=== PATIENT | male | born 1980 | race Caucasian/White ===

== ENCOUNTER 2017-03-26 06:15 | Day surgery (SDC) | payer OTHER ==
[2017-03-26 07:09] VITALS: BMI 39.1
[2017-03-26] MEDS ORDERED: SODIUM CHLORIDE 1,000 ML IV STA (07:25)
--- NOTE | 2017-03-26 08:12 | PDOC ---
*Physical Exam - Vital Signs Last Vital Signs Temp Pulse Resp BP Pulse Ox 99.0 F 105 H 14 154/102 97 03/26/17 06:39 03/26/17 06:39 03/26/17 06:39 03/26/17 06:39 03/26/17 06:39 Heart Score/ECG Review #1 ECG reviewed & interpreted by me at: 07:45 General ECG Interpretation: Sinus Rhythm, Normal Rate (91), Normal Intervals ( qtc 425), No acute ischemic changes ED Treatment Course - LABORATORY CBC & Chemistry Diagram: 03/26/17 07:56 03/26/17 07:56 Medical Decision Making - Medical Decision Making 03/26/17 08:10 Patient seen and evaluated with the nurse practitioner. I agree with the overall evaluation, assessment, and management with the following summary of visit: 36-year-old male for OR today with Dr. Ferrer. Accepted for admission. *DC/Admit/Observation/Transfer Diagnosis at time of Disposition: Obesity Qualifiers: Obesity type: unspecified obesity type Obesity classification: adult class 2 ( BMI 35 - 39.9) Serious obesity comorbidity presence: unspecified whether serious comorbidity present Body mass index: unspecified BMI Qualified Code(s): E66.9 - Obesity, unspecified - Discharge Dispostion Admit: Yes - Referrals Referrals: Angela Perdue MD [Primary Care Provider] - - Patient Instructions - Post Discharge Activity
[2017-03-26 08:15] LABS: BASOPHIL 0.3 % (0-2.0); MCH 34.3 pg (25.7-33.7); MCHC 34.3 g/dl (32.0-35.9); MEAN CELL VOLUME 99.8 fl (80-96); MEAN PLT VOLUME 8.2 fl (7.5-11.1); NEUTROPHILS 72.8 % (42.8-82.8); PLATELET COUNT 259 K/MM3 (134-434); RDW 12.8 % (11.9-15.9); WHITE BLOOD COUNT 6.9 K/mm3 (4.0-10.0)
[2017-03-26 08:37] LABS: ALBUMIN 4.4 g/dl (3.4-5.0); ANION GAP 8 (8-16); CALCIUM 8.8 mg/dL (8.5-10.1); CO2 28 mmol/L (21-32); CREATININE 1.6 mg/dL (0.7-1.3); GLUCOSE,RANDOM 104 mg/dL (74-106); SGOT/AST 91 U/L (15-37); SGPT/ALT 115 U/L (12-78)
[2017-03-26 08:39] LABS: ALK PHOS 87 U/L (45-117); BILIRUBIN,TOTAL 0.2 mg/dL (0.2-1.0); TOT PROT 8.3 g/dl (6.4-8.2)
--- NOTE | 2017-03-26 08:43 | PDOC ---
History of Present Illness - General Chief Complaint: Revisit, Lab Variance Stated Complaint: ABD PAIN/SENT BY Time Seen by Provider: 03/26/17 07:19 History Source: Patient Exam Limitations: No Limitations - History of Present Illness Initial Comments: 03/26/17 07:37 36-year-old male presents to the ED for pending gastric sleeve today to be performed by Dr. Pedroza. Patient states had the gastric lap band performed at 2013 but states has been having difficulty with tolerating solids causing him to have nausea, intermittent diarrhea and dysphagia. Patient denies abdominal distention, decreased flatulence, severe abdominal pain, fever or chills. Patient states had the balloon deflated earlier this week by Dr. pedroza. Patient states history of hypertension and took his medication this morning and had his last meal yesterday at 1 PM. Timing/Duration: intermittent Severity: mild Associated Symptoms: reports: nausea/vomiting Past History - Travel Traveled outside of the country in the last 30 days: Yes - Past Medical History Allergies/Adverse Reactions: Allergies Allergy/AdvReac Type Severity Reaction Status Date / Time No Known Allergies Allergy Verified 03/26/17 06:38 Home Medications: Ambulatory Orders Lisinopril [Prinivil -] 40 mg PO DAILY 03/26/15 Metoprolol Tartrate 25 mg PO DAILY 03/26/15 COPD: No HTN: Yes - Surgical History Abdominal Surgery: Yes (lap band) - Suicide/Smoking/Psychosocial Hx Smoking History: Never smoked Have you smoked in the past 12 months: No Information on smoking cessation initiated: No Hx Alcohol Use: No Drug/Substance Use Hx: No Substance Use Type: None Patient Lives Alone: No Review of Systems - Review of Systems Able to Perform ROS?: Yes Constitutional: No: Symptoms Reported HEENTM: Yes: Difficulty Swallowing Respiratory: No: Symptoms reported ABD/GI: Yes: Diarrhea, Nausea, Vomiting, Abdominal cramping : No: Symptoms Reported Integumentary: No: Symptoms Reported Neurological: No: Symptoms reported Endocrine: No: Symptoms Reported Hematologic/Lymphatic: No: Symptoms Reported *Physical Exam - Vital Signs Last Vital Signs Temp Pulse Resp BP Pulse Ox 99.0 F 105 H 14 154/102 97 03/26/17 06:39 03/26/17 06:39 03/26/17 06:39 03/26/17 06:39 03/26/17 06:39 - Physical Exam General Appearance: Yes: Nourished, Appropriately Dressed. No: Apparent Distress HEENT: negative: Pale Conjunctivae Neck: positive: Normal Thyroid, Supple Respiratory/Chest: positive: Lungs Clear, Normal Breath Sounds. negative: Respiratory Distress, Accessory Muscle Use Cardiovascular: positive: Regular Rhythm, Regular Rate (rate 85 on monitor). negative: Murmur Gastrointestinal/Abdominal: positive: Soft, Tenderness (mild around rt periumblical lap band incision). negative: Distended, Guarding, Rebound Integumentary: positive: Normal Color, Warm, Moist Neurologic: positive: Normal Mood/Affect, Motor Strength 5/5 (ambulatory) Heart Score/ECG Review - ECG Intrepretation Rhythm: Regular Rhythm (rate 91. Normal sinus rhythm. Intervals are regular.) ED Treatment Course - LABORATORY CBC & Chemistry Diagram: 03/26/17 07:56 03/26/17 07:56 - RADIOLOGY Radiology Studies Ordered: Category Date Time Status CHEST X-RAY PORTABLE* [RAD] Stat Radiology 03/26/17 07:24 Ordered Medical Decision Making - Medical Decision Making 03/26/17 07:43 Patient sent in by Dr. Pedroza for gastric sleeve procedure. Patient states has been having nausea and vomiting intermittent diarrhea and dysphagia since having the gastric lap band done in 2013. Patient upon arrival with normal vital signs. Mild tenderness surrounding the LAP-BAND. No distention. Preop labs placed. Maintenance IV fluids initiated. Awaiting Dr. Pedroza for callback. 03/26/17 08:45 Laboratory Tests 03/26/17 07:56 Sodium 136 Potassium 4.1 Chloride 100 Carbon Dioxide 28 Anion Gap 8 BUN 22 H D Creatinine 1.6 H D Random Glucose 104 Total Bilirubin 0.2 D AST 91 H D ALT [address] Pedroza here for consultation. He states will remove a gastric lap band today and likely will reschedule the gastric sleeve. admitted under him *DC/Admit/Observation/Transfer Diagnosis at time of Disposition: Obesity Qualifiers: Obesity type: unspecified obesity type Obesity classification: adult class 2 ( BMI 35 - 39.9) Serious obesity comorbidity presence: unspecified whether serious comorbidity present Body mass index: unspecified BMI Qualified Code(s): E66.9 - Obesity, unspecified - Discharge Dispostion Admit: Yes - Referrals Referrals: Angela Perdue MD [Primary Care Provider] - - Patient Instructions - Post Discharge Activity
[2017-03-26 08:55] LABS: INR 1.06 (0.82-1.09)
--- NOTE | 2017-03-26 10:24 | EKG ---
Test Reason : Blood Pressure : / mmHG Vent. Rate : 091 BPM Atrial Rate : 091 BPM P-R Int : 146 ms QRS Dur : 104 ms QT Int : 346 ms P-R-T Axes : 050 005 032 degrees QTc Int : 425 ms NORMAL SINUS RHYTHM NORMAL ECG WHEN COMPARED WITH ECG OF 26-MAR-2015 08:51, NO SIGNIFICANT CHANGE WAS FOUND Confirmed by ISAAK WILKINSON MD ([id number]) on 03/26/2017 10:23:54 AM Referred By: Confirmed By:ISAAK WILKINSON MD
[2017-03-26] MEDS ORDERED: BUPIVACAINE HCL/PF 0.5% (5MG/ML) 10 ML VIAL ONE (10:45)
--- NOTE | 2017-03-26 10:55 | HP ---
Satellite [facility] - Chief Complaint Chief Complaint: Dysphagia, abdominal pain, reflux/GERD History Source: Patient Limitations to Obtaining History: No Limitations - Past Medical History Allergies/Adverse Reactions: Allergies Allergy/AdvReac Type Severity Reaction Status Date / Time No Known Allergies Allergy Verified 03/26/17 06:38 - Current Medications Current Medications: Home Medications Medication Instructions Recorded Lisinopril [Prinivil -] 40 mg PO DAILY 03/26/15 Metoprolol Tartrate 25 mg PO DAILY 03/26/15 Satellite Physical Exam - Physical Examination Vital Signs: Vital Signs Period Temp Pulse Resp BP Sys/Candelario Pulse Ox Last 24 Hr 98.6 F-99.0 F 78-105 14-16 135-154/85-102 97-99 General Appearance: Calm, Mild Distress Lung: Clear to auscultation Heart: Regular rate & rhythm Abdomen: Soft Neurological: Alert, Oriented Satellite Impression/Plan - Impression/Plan Impression: Dysphagia, reflux and pain from gastric band Operative Procedure: Laparoscopic removal of gastric band, port and components Date to be Performed: 03/26/17
[2017-03-26] MEDS ORDERED: PROPOFOL 20 ML ONE (11:02)
[2017-03-26] MEDS ORDERED: fentaNYL CITRATE 250 MCG/5 ML VIAL ONE (11:02)
[2017-03-26] MEDS ORDERED: ROCURONIUM BROMIDE 50 MG/5 ML VIAL ONE (11:03)
[2017-03-26] MEDS ORDERED: MIDAZOLAM HCL 2 MG/2 ML SINGLE DOSE VIAL ONE (11:03)
[2017-03-26] MEDS ORDERED: KETOROLAC TROMETHAMINE 30 MG/1 ML VIAL ONE (11:05)
[2017-03-26] MEDS ORDERED: LIDOCAINE HCL/PF 2% SDV 5ML VIAL ONE ×2 (11:05→11:07)
[2017-03-26] MEDS ORDERED: LIDOCAINE HCL 2% JELLY (5 ML/TUBE) ONE (11:05)
[2017-03-26] MEDS ORDERED: ONDANSETRON 4 MG/2 ML VIAL ONE (11:05)
[2017-03-26] MEDS ORDERED: SODIUM CHLORIDE 0.9% P/F 10 ML VIAL IJ ONE (11:05)
[2017-03-26] MEDS ORDERED: ceFAZolin SODIUM 1 GM VIAL ONE (11:05)
[2017-03-26] MEDS ORDERED: ceFAZolin SODIUM 1 GM VIAL IVPB ONE ×2 (11:42→11:55)
[2017-03-26] MEDS ORDERED: BUPIVACAINE HCL/PF 0.5% (5MG/ML) 10 ML VIAL IJ ONE ×2 (11:42→12:03)
[2017-03-26] MEDS ORDERED: ePHEDrine SULFATE 50 MG/1 ML AMPULE ONE (11:55)
[2017-03-26] MEDS ORDERED: SUCCINYLCHOLINE CHLORIDE 200 MG/10 ML VIAL ONE (11:56)
[2017-03-26] MEDS ORDERED: GLYCOPYRROLATE 0.2 MG/1 ML VIAL ONE ×2 (12:18→12:19)
[2017-03-26] MEDS ORDERED: NEOSTIGMINE METHYLSULFATE 0.5 MG/ML - 10 ML MDV ONE (12:18)
[2017-03-26] MEDS ORDERED: ONDANSETRON 4 MG/2 ML VIAL IVPUSH PRN ×2 (13:51→16:17)
[2017-03-26] MEDS ORDERED: ENOXAPARIN NA (PORCINE) 40 MG/0.4 ML DISP.SYRIN SQ ONE (13:51)
[2017-03-26] MEDS ORDERED: HYDROmorphone HCL CARPU-JECT 1 MG/1 ML DISP.SYRIN IVPB PRN (13:51)
--- NOTE | 2017-03-26 14:19 | OP ---
Operative Note - Note: Operative Date: 03/26/17 Pre-Operative Diagnosis: Dysphagia, reflux, epigastric pain due to gastric band Operation: Laparoscopic removal of gastric band, port and components, lysis of adhesions, capsulotomy, wedge liver biopsy, EGD Findings: Hepatomegaly No leak/obstruction Post-Operative Diagnosis: Same as Pre-op Surgeon: Ace Ferrer Employee Relation Manager: Luna Nunez Anesthesia: General Specimens Removed: Gastric band, port and components, liver biopsy Estimated Blood Loss (mls): 30 Operative Report Dictated: Yes
--- NOTE | 2017-03-26 14:41 | SURG ---
Surgery Taper [employer]ed Circuit Layout Note Taper [employer]ed [employer] Layout: Nely Patton PA-C Date of Service: 03/26/17 Diagnosis: Abdomina; Procedure: Laprascopic removal of gastric band, Liver biopsy I was present for the entirety of the operative procedure. For further detail, please refer to operative report.
[2017-03-26] MEDS ORDERED: oxyCODONE HCL 5 MG TABLET PO PRN ×4 (16:19→21:16)
[2017-03-26] MEDS ORDERED: TAMSULOSIN HCL 0.4 MG CAP.ER.24H (FP) PO ONE (17:17)
--- NOTE | 2017-03-26 18:26 | OP ---
DATE OF OPERATION: 03/26/2017 SURGEON: Ace Ferrer M.D. BOOTH CLEANER: Omer Dos Santos Amber PREOPERATIVE DIAGNOSIS: Dysphagia, epigastric pain, and gastroesophageal reflux disease/reflux. POSTOPERATIVE DIAGNOSIS: Dysphagia, epigastric pain, and gastroesophageal reflux disease/reflux due to gastric band. PROCEDURE: Laparoscopic removal of gastric band port and components, laparoscopic capsulotomy, laparoscopic lysis of adhesions, laparoscopic wedge liver biopsy, and an upper endoscopy/EGD. SPECIMENS: Wedge liver biopsy. ESTIMATED BLOOD LOSS: 30 mL. DRAINS: None. ANESTHESIA: GT. REASON FOR THE PROCEDURE: This is a 36-year-old gentleman who presents to the ER for dysphagia, epigastric pain, and GERD/reflux from his band. He stated it has been going on for some time. He also wanted the band removed because of this constant source of dysphagia, pain, and reflux. Because of this, he was consented for a laparoscopic removal of gastric band, port and components, possible open, possible liver biopsy, possible endoscopy. Risks and benefits of the procedure were explained. This included bleeding, infection, hernia, MO, DVT, PE, injury to surrounding structures including esophageal injuries, stomach injury, liver injury, splenic injury, duodenal injury, intestinal injury, vessel injury, nerve injury, stricture formation, obstruction, gastric leak, esophageal leak, persistent dysphagia, epigastric pain, and reflux, seroma, hematoma as some of the complications. He understood and signed for consent. DESCRIPTION OF PROCEDURE: Patient was placed supine on operating room table. He underwent general endotracheal intubation by anesthesia. A footboard was placed , and the arms were elevated to 90 degrees and secured with Kerlix dressing. The legs were secured with tape. The abdomen was prepped and draped in the usual sterile fashion and timeout was performed. An NG tube was placed by anesthesia. An incision was made superior to the left of the umbilicus. A Veress needle was inserted, and pneumoperitoneum was established. Subsequently the Veress needle was removed, and a 5-mm Optiview trocar was removed under direct visualization with laparoscope. A 15-mm trocar was placed at the level of the previous port, just above the level of the previous port. A 5-mm trocar was placed in the right subcostal region, a 5- mm trocar placed in the left subcostal region, and a 5-mm trocar that was initially placed was replaced with a 12-mm trocar. Stab wound was made in subxiphoid area , and a Vicky clamp was used to dilate the tract, liver retractor was inserted, and attached to the post which was attached to the bedside. The patient was placed in steep reverse Trendelenburg position. The liver was retracted with a Tanvir liver retractor to the anterior abdominal wall. Dissection was performed following the tubing to the level of the band. This was done carefully staying along the aspect of the tubing and band itself. The band was dissected to the right laterally beyond the point of the band buckle, and freed further so that the band could be slightly mobilized. The band was then dissected laterally towards the level of the prior wrap. Once the band was freed enough to be further mobilized, the tubing was followed to the level of the connection to the port. At this level, the tubing was transected using an Endoshear. The band was then opened and the tubing reduced. The band was cut with an Endoshear so that it could be mobilized from around the stomach. The two portions of the band were removed from the abdominal cavity and the two parts matched. The capsule was then inspected, and the capsulotomy performed from the inferior aspect of the capsule to the superior aspect, the capsule was carefully dissected and opened with Endoshear. At the end of the capsulotomy, the stomach was noted to be with much less restriction. Hemostasis was noted. Endoscopy was then performed in order to further evaluate the entirety of the esophagus, GE junction, stomach was inspected, no leaks were identified, no level of obstruction or stricture was identified, and the stomach was noted to distend at the level of the prior capsule and beyond, noting no evidence of further obstruction. The endoscope was then used to suction the stomach and removed from the patient fully intact. Of note, in order to free the band initially, extensive lysis of adhesions needed to be performed, freeing adhesions toward the liver in the anterior abdominal wall. The liver was noted to be boggy and heavy and enlarged and therefore wedge liver biopsy of the left lobe of the liver was performed. A portion was grasped with [place] and a wedge liver biopsy was taken with hook electrocautery; this was sent off the field. Hemostasis was achieved using hook electrocautery. Again hemostasis was noted. The trocars were removed, and hemostasis again noted. The liver retractor was removed from the field, and all trocars removed after pneumoperitoneum was desufflated. The incision in the port was then extended, and the port dissected until completely dissected and removed from the abdominal wall. The tubing from the port as well as the tubing from the prior removed band was noted to match. Hemostasis was noted at all incisions, and the fascia at this region was closed using 0 Vicryl suture. Marcaine was injected in all incision sites. 3-0 Vicryl was used to approximate the deep subcutaneous layers at the 15mm trocar site. 4-0 Biosyn was used to close all skin incisions. Sterile dressings were applied. The patient tolerated the procedure well, was transferred to recovery room in stable condition. Donovan SAHU/[id number] MTDD
[2017-03-26] MEDS: TAMSULOSIN HCL 0.4 MG CAP.ER.24H (FP) PO SCH (18:58)
[2017-03-26] MEDS: SODIUM CHLORIDE 1,000 ML IV SCH ×2 (18:59→21:51)
[2017-03-26] MEDS ORDERED: ACETAMINOPHEN 1000 MG/100 ML VIAL (NON FORMULARY) IVPB PRN (21:46)
[2017-03-26] MEDS: FAMOTIDINE 20 MG/50 ML IVPB 20 MG/50 ML MG IVPB SCH (21:48)
[2017-03-26] MEDS ORDERED: FAMOTIDINE 20 MG/50 ML IVPB 20 MG/50 ML MG IVPB SCH (22:00)
[2017-03-26 23:48] LABS: EOSINOPHIL 0.1 % (0-4.5); MCHC 33.8 g/dl (32.0-35.9); MEAN CELL VOLUME 100.7 fl (80-96); MEAN PLT VOLUME 8.4 fl (7.5-11.1); NEUTROPHILS 88.8 % (42.8-82.8); PLATELET COUNT 232 K/MM3 (134-434); RDW 13.3 % (11.9-15.9); WHITE BLOOD COUNT 11.2 K/mm3 (4.0-10.0)
[2017-03-27 00:12] LABS: ANION GAP 10 (8-16); CALCIUM 8.5 mg/dL (8.5-10.1); CO2 29 mmol/L (21-32); CREATININE 1.6 mg/dL (0.7-1.3); GLUCOSE,RANDOM 111 mg/dL (74-106)
[2017-03-27] MEDS ORDERED: HYDROmorphone HCL CARPU-JECT 2 MG/1 ML DISP.SYRIN IVPB PRN (03:25)
--- NOTE | 2017-03-27 07:23 | SURG ---
Surgery Surgical Asst Note Surgical Asst: Luna Nunez PA-C Date of Service: 03/26/17 Diagnosis: Dysphagia, reflux, epigastric pain due to gastric band Procedure: Laparoscopic removal of gastric band, port and components, lysis of adhesions, capsulotomy, wedge liver biopsy, EGD F I was present for the entirety of the operative procedure. For further detail, please refer to operative report. Visit type - Case Type Case Type: ED Admission - Emergency Emergency Visit: Yes Care time: The patient presented to the Emergency Department on the above date and was hospitalized for further evaluation of their emergent condition. - New patient This patient is new to me today: Yes Date on this admission: 03/26/17
[2017-03-27 08:51] LABS: ANION GAP 5 (8-16); CALCIUM 7.9 mg/dL (8.5-10.1); CO2 30 mmol/L (21-32); CREATININE 1.3 mg/dL (0.7-1.3); GLUCOSE,RANDOM 102 mg/dL (74-106)
--- NOTE | 2017-03-27 09:38 | PN ---
Progress Note (short form) - Note Progress Note: POD#1 The patient complains of sore throat and some painful swallowing. No nausea or emesis, tolerating clears. Having diarhhea x1, he took a stool softner prior to surgery. Vital Signs Period Temp Pulse Resp BP Sys/Candelario Pulse Ox Last 24 Hr 98.0 F-102.2 F 10-126 10-19 100-3118/46-86 90-99 GEN: appears cmfortable ABD: slight distended, inc tenderness. Inc c/d/i with dermabond. LE: no calf tenderness or swelling noted b/l. CBC, BMP 03/26/ 23:25 03/27/ 07:30 A/P: s/p lap gastric band removal Continue clears Ordered home meds, except for HCTZ his BUN/Cret were elevated. Awaiting renal consult, labs improved today. Awaiting pulmonary consult, saturation 90-94 % overnight with improved with supplemental oxygen. To check sat again this am. D/w epi Chowob to chair and ambulate.
[2017-03-27] MEDS ORDERED: LISINOPRIL 20 MG TABLET (FP) PO SCH (10:00)
[2017-03-27] MEDS ORDERED: VENLAFAXINE HCL 75 MG E.R. CAPSULES (FP) PO SCH (10:00)
[2017-03-27] MEDS ORDERED: METOPROLOL TARTRATE 25 MG TABLET (FP) PO SCH (10:00)
[2017-03-27] MEDS ORDERED: ALPRAZolam 0.25 MG TABLET PO PRN (10:06)
[2017-03-27] MEDS ORDERED: ACETAMINOPHEN 325 MG TABLET (FP) PO PRN (10:08)
[2017-03-27] MEDS: TAMSULOSIN HCL 0.4 MG CAP.ER.24H (FP) PO SCH (10:12)
[2017-03-27] MEDS: FAMOTIDINE 20 MG/50 ML IVPB 20 MG/50 ML MG IVPB SCH (10:12)
[2017-03-27] MEDS ORDERED: OXcarbazepine 150 MG TABLET (UD) PO SCH (10:15)
[2017-03-27 11:00] VITALS: BP 161/78; PULSE 113; TEMP 100.5
== END 2017-03-27 12:44 | disposition home or self-care (01) ==
LOC: JER 06:15 → JASUSAT 08:12 → JER 10:20 → J6S 17:55 → JASUSAT 03-27 12:44
PROVIDERS: ATTEND Surgery
PROC: 0WP Anatomical Regions, General, Removal (ICD-10-PCS; principal; 2017-03-26 11:00)
PROC: 0DJ08ZZ Inspection of Upper Intestinal Tract, Via Natural or Artificial Opening Endoscopic (ICD-10-PCS; 2017-03-26 11:00)
DX: K95.09 Other complications of gastric band procedure (principal); K21.9 Gastro-esophageal reflux disease without esophagitis; R13.19 Other dysphagia; R10.13 Epigastric pain; R16.0 Hepatomegaly, not elsewhere classified; I10 Essential (primary) hypertension; E66.01 Morbid (severe) obesity due to excess calories
CPT/HCPCS: 36415; 71010-TC; 74241-TC; 80048; 80053; 85025; 85610; 86850; 86900; 86901; 88300-TC; 88307-TC; 88313-TC; 93005; 93010; 94010; 94760; 99284-25

== ENCOUNTER 2017-05-16 13:36 | Inpatient (IN) | payer OTHER ==
[2017-05-15 15:10] VITALS: BMI 39.1
[~2017-05-16 13:36] MED LIST: BUPIVACAINE HCL/PF 0.5% (5MG/ML) 10 ML VIAL IJ ONE
[2017-05-16] MEDS ORDERED: MIDAZOLAM HCL 2 MG/2 ML SINGLE DOSE VIAL ONE (16:45)
--- NOTE | 2017-05-16 16:45 | HP ---
History & Physical Update - History History: No Change - Physical Physical: No Change - Assessment Assessment: No Change - Plan Plan: No Change (Laparoscopic possible open vertical sleeve gastrectomy, possible wedge liver biopsy, EGD)
[2017-05-16] MEDS ORDERED: LIDOCAINE HCL/PF 2% SDV 5ML VIAL ONE (16:53)
[2017-05-16] MEDS ORDERED: DEXAMETHASONE SOD PHOSPHATE 4 MG/1 ML VIAL ONE ×2 (16:53→18:06)
[2017-05-16] MEDS ORDERED: fentaNYL CITRATE 250 MCG/5 ML VIAL ONE (16:54)
[2017-05-16] MEDS ORDERED: PROPOFOL 20 ML ONE ×2 (16:55→16:56)
[2017-05-16] MEDS ORDERED: ROCURONIUM BROMIDE 50 MG/5 ML VIAL ONE ×2 (16:56)
[2017-05-16] MEDS ORDERED: ceFAZolin SODIUM 1 GM VIAL ONE (17:03)
[2017-05-16] MEDS ORDERED: ESMOLOL HCL 100,000 MCG/10 ML VIAL ONE (17:05)
[2017-05-16] MEDS ORDERED: ceFAZolin SODIUM 1 GM VIAL IVPB ONE (17:05)
[2017-05-16] MEDS ORDERED: NEOSTIGMINE METHYLSULFATE 0.5 MG/ML - 10 ML MDV ONE (18:06)
[2017-05-16] MEDS ORDERED: GLYCOPYRROLATE 0.2 MG/1 ML VIAL ONE (18:11)
[2017-05-16] MEDS ORDERED: BUPIVACAINE HCL/PF 0.5% (5MG/ML) 10 ML VIAL IJ ONE (18:30)
[2017-05-16] MEDS ORDERED: METOCLOPRAMIDE HCL INJECTION 10 MG/2 ML VIAL ONE (18:52)
[2017-05-16] MEDS ORDERED: HYDROmorphone HCL CARPU-JECT 2 MG/1 ML DISP.SYRIN ONE ×2 (18:52→19:09)
[2017-05-16] MEDS ORDERED: ONDANSETRON 4 MG/2 ML VIAL ONE (18:52)
[2017-05-16] MEDS: HYDROmorphone HCL CARPU-JECT 1 MG/1 ML DISP.SYRIN IVPUSH PRN ×4 (18:53→19:30)
[2017-05-16] MEDS ORDERED: ACETAMINOPHEN INJECTION 100 ML IVPB ONE (18:53)
--- NOTE | 2017-05-16 18:57 | OP ---
Operative Note - Note: Operative Date: 05/16/17 Pre-Operative Diagnosis: Morbid obesity Operation: Laparoscopic vertical gastric sleeve. Liver biopsy Post-Operative Diagnosis: Other Surgeon: Ace Ferrer Warehouse Associate: Filiberto Tierney Anesthesiologist/PRODUCTION TROUBLESHOOTER: Pranav Briseno Anesthesia: General Specimens Removed: Greater curvatire of stomach and liver biopsy Estimated Blood Loss (mls): 40 Operative Report Dictated: Yes
--- NOTE | 2017-05-16 18:58 | SURG ---
Surgery Police Aide Note Police Aide: Filiberto Tierney PA-C Date of Service: 05/16/17 Diagnosis: Morbid obesity Procedure: Laparoscopic vertical sleeve gastrectomy, liver biopsy I was present for the entirety of the operative procedure. For further detail, please refer to operative report. Visit type - Case Type Case Type: Scheduled Admission - New patient This patient is new to me today: Yes Date on this admission: 05/16/17
[2017-05-16] MEDS ORDERED: SODIUM CHLORIDE 1,000 ML IV SCH (19:00)
[2017-05-16] MEDS: METOCLOPRAMIDE HCL INJECTION 10 MG/2 ML VIAL IVPUSH SCH (19:00)
[2017-05-16] MEDS: ACETAMINOPHEN 1000 MG/100 ML VIAL (NON FORMULARY) IVPB SCH (19:10)
[2017-05-16] MEDS: ONDANSETRON 4 MG/2 ML VIAL IVPUSH SCH (19:20)
[2017-05-16 19:49] LABS: HEMOGLOBIN 13.6 GM/dL (11.7-16.9); MCH 33.2 pg (25.7-33.7); MCHC 33.2 g/dl (32.0-35.9); MEAN CELL VOLUME 99.8 fl (80-96); MEAN PLT VOLUME 9.6 fl (7.5-11.1); PLATELET COUNT 268 K/MM3 (134-434); RBC 4.11 M/mm3 (4.00-5.60); RDW 14.8 % (11.9-15.9); WHITE BLOOD COUNT 10.7 K/mm3 (4.0-10.0)
[2017-05-16 20:23] LABS: ANION GAP 9 (8-16); BILIRUBIN,TOTAL 0.6 mg/dL (0.2-1.0); BLOOD UREA NITROGEN 29 mg/dL (7-18); CALCIUM 8.9 mg/dL (8.5-10.1); CHLORIDE 98 mmol/L (98-107); CO2 28 mmol/L (21-32); CREATININE 1.8 mg/dL (0.7-1.3); GLUCOSE,RANDOM 121 mg/dL (74-106); POTASSIUM 4.1 mmol/L (3.5-5.1); SGOT/AST 56 U/L (15-37); SGPT/ALT 82 U/L (12-78); SODIUM 135 mmol/L (136-145); TOT PROT 7.5 g/dl (6.4-8.2)
[2017-05-16 20:24] LABS: ALK PHOS 82 U/L (45-117)
[2017-05-16] MEDS: ENOXAPARIN NA (PORCINE) 40 MG/0.4 ML DISP.SYRIN SQ SCH (21:58)
[2017-05-16] MEDS: FAMOTIDINE 20 MG/50 ML IVPB 20 MG/50 ML MG IVPB SCH (21:58)
[2017-05-16] MEDS: HYDROmorphone HCL CARPU-JECT 1 MG/1 ML DISP.SYRIN IVPB PRN (22:36)
[2017-05-17] MEDS: ONDANSETRON 4 MG/2 ML VIAL IVPUSH SCH ×7 (00:21→22:58)
[2017-05-17] MEDS: ALPRAZolam 2 MG TABLET PO SCH ×2 (00:21→22:58)
[2017-05-17] MEDS: NIFEdipine E.R. 30 MG TABLET (FP) PO SCH ×3 (00:21→22:58)
[2017-05-17] MEDS: METOCLOPRAMIDE HCL INJECTION 10 MG/2 ML VIAL IVPUSH SCH ×2 (01:57→06:50)
[2017-05-17] MEDS: ACETAMINOPHEN 1000 MG/100 ML VIAL (NON FORMULARY) IVPB SCH ×3 (01:57→14:43)
[2017-05-17] MEDS: HYDROmorphone HCL CARPU-JECT 1 MG/1 ML DISP.SYRIN IVPB PRN ×2 (03:00→19:43)
[2017-05-17 07:31] LABS: HEMATOCRIT 39.8 % (35.4-49); HEMOGLOBIN 13.1 GM/dL (11.7-16.9); MCH 33.1 pg (25.7-33.7); MEAN CELL VOLUME 100.4 fl (80-96); MEAN PLT VOLUME 9.1 fl (7.5-11.1); PLATELET COUNT 261 K/MM3 (134-434); RBC 3.96 M/mm3 (4.00-5.60); RDW 14.9 % (11.9-15.9); WHITE BLOOD COUNT 12.2 K/mm3 (4.0-10.0)
--- NOTE | 2017-05-17 07:35 | SPEC ---
DATE OF OPERATION: 05/16/2017 SURGEON: Ace Ferrer MD MANAGER LICENSING: ADDIE Victor PREOPERATIVE DIAGNOSIS: Morbid obesity, BMI of 39.1. POSTOPERATIVE DIAGNOSIS: Morbid obesity, BMI of 39.1, and hepatomegaly. PROCEDURE: Laparoscopic vertical sleeve gastrectomy, laparoscopic wedge liver biopsy, diagnostic laparoscopy, and esophagogastroduodenoscopy. SPECIMEN: Greater curvature of the stomach and left lobe wedge liver biopsy. ESTIMATED BLOOD LOSS: 30 mL. DRAINS: None. ANESTHESIA: GET. BOUGIE: A 35-Salvadorean. REASON FOR PROCEDURE: This is a 37-year-old gentleman who presented to the office for weight loss options. After describing the different options, he decided to proceed with a laparoscopic vertical sleeve gastrectomy, possible open, possible liver biopsy and an upper endoscopy. RISKS AND BENEFITS: After describing the different options for weight loss management, the patient decided to proceed with a laparoscopic, possible open vertical sleeve gastrectomy. The patient was seen by the respective subspecialties and cleared for surgery. The risks and benefits of the procedure were explained. These included bleeding, infection, hernia, MT, DVT, PE, injury to surrounding structures including the liver, colon, bowel, spleen, esophagus, vessel injury, nerve injury, weight regain, gastric leak, staple line leak, sleeve leak, obstruction, vitamin deficiency, hair loss and as some of the possible complications. The patient understood and signed informed consent. DESCRIPTION OF PROCEDURE: The patient was placed supine on the operating room table. The patient underwent general endotracheal intubation. A Johns catheter was inserted. The arms were brought out at 90 degrees and secured. A footboard was placed and the legs were secured laterally with padding. The abdomen was prepped and draped in the usual sterile fashion. A timeout was performed. An incision was made in the left upper quadrant and a Veress needle inserted. Pneumoperitoneum was established. Subsequently, the Veress needle was removed and a 12-mm trocar was placed. The laparoscopic camera was then inserted and inspection of the abdominal cavity was performed. An incision was then made in the supraumbilical area and a 15-mm trocar was placed under direct visualization. A 5-mm trocar was then placed in the right upper quadrant and a 5-mm trocar was placed below the left subcostal margin. A stab wound was made in the subxiphoid area and a Vicky clamp inserted and removed to dilate the tract. A Tanvir liver retractor was inserted. The post was secured at the bedside by the nursing staff. The patient was placed in steep reverse Trendelenburg position and the Tanvir liver retractor was used to secure the liver towards the anterior abdominal wall. The pylorus was identified and 6 cm proximal to it, the lesser sac was entered using the LigaSure device. All lateral attachments to the greater curvature of the stomach, including the short gastric vessels, were ligated using the LigaSure device toward the gastrosplenic and gastrophrenic ligaments. Once this was done in its entirety, it was confirmed that all tubes within the nasal or oropharyngeal cavity, including a temperature probe, was removed by Anesthesia. The bougie was then inserted by Anesthesia. Transection of the stomach was then begun staying adjacent to the bougie but away from the angularis. Transection of the stomach was performed near the portion of the stomach where the lesser sac was entered. Two laparoscopic Endo-ADDISON black francisco were used at this location. Laparoscopic Endo ADDISON purple staple loads were then used for the remainder of the transection until the greater curvature of the stomach was fully transected. This was done staying close to the bougie. Care was taken to stay away from the angle of His cephalad. The staple line was then inspected. Hemostasis was identified. A leak test was then performed. It was clamped distally to the staple line. Irrigation solution was placed in the left upper quadrant and air was insufflated by Anesthesia into the sleeve. No leaks were identified. No obstruction was identified. This was done through the entirety of the staple line. At this point, the irrigation solution was suctioned and again, hemostasis was noted. A wedge liver biopsy was then performed. The left lobe of the liver was identified and a portion of the edge was grasped. Using electrocautery, a wedge of the liver was excised. This was removed and sent off the field as specimen. Hemostasis at the site of the wedge liver biopsy was attained using electrocautery. The 15-mm supraumbilical trocar was then removed and the greater curvature specimen removed from the site using a sponge stick farah. The specimen was inspected and a Veress needle inserted. The specimen insufflated adequately and no leak was identified. The staple line was noted to be intact. A Tanmay-Daryl device was then used to temporarily close the fascia with a 0 Vicryl suture at the site. The 15-mm trocar was then reinserted and the 12-mm trocar in the left upper quadrant was removed. The fascia at this site was then closed using the Tanmay-Daryl device with a 0 Vicryl suture. Again, hemostasis was noted. The Tanvir liver retractor was then removed under direct visualization. Pneumoperitoneum was desufflated and the fascial sutures were secured. Hemostasis was noted at all incision sites and Marcaine was injected at all incision sites. All incision sites were closed using 4-0 Biosyn. Sterile dressings were applied. In addition, at the end of the case, an upper endoscopy was performed in order to evaluate the gastric patch and staple line. Hemostasis was noted. No leak or obstruction was noted. The stomach was suctioned, decompressed, and the endoscope removed. The patient tolerated the procedure well and was transferred to the recovery room in stable condition with the Johns catheter intact. The patient was transferred to telemetry for further monitoring. Donovan [id number]
[2017-05-17 08:07] LABS: CHLORIDE 95 mmol/L (98-107); POTASSIUM 4.4 mmol/L (3.5-5.1); SODIUM 135 mmol/L (136-145)
[2017-05-17 08:14] LABS: ALBUMIN 4.1 g/dl (3.4-5.0); ALK PHOS 82 U/L (45-117); ANION GAP 10 (8-16); BILIRUBIN,TOTAL 0.8 mg/dL (0.2-1.0); BLOOD UREA NITROGEN 27 mg/dL (7-18); CALCIUM 9.2 mg/dL (8.5-10.1); CO2 30 mmol/L (21-32); CREATININE 1.8 mg/dL (0.7-1.3); GLUCOSE,RANDOM 114 mg/dL (74-106); SGOT/AST 75 U/L (15-37); SGPT/ALT 89 U/L (12-78); TOT PROT 7.9 g/dl (6.4-8.2)
[2017-05-17] MEDS: FAMOTIDINE 20 MG/50 ML IVPB 20 MG/50 ML MG IVPB SCH ×2 (09:54→22:59)
[2017-05-17] MEDS: ENOXAPARIN NA (PORCINE) 40 MG/0.4 ML DISP.SYRIN SQ SCH ×2 (09:54→22:59)
[2017-05-17] MEDS ORDERED: VENLAFAXINE HCL 150 MG E.R. CAPSULE PO SCH (10:49)
--- NOTE | 2017-05-17 10:49 | PN ---
Progress Note (short form) - Note Progress Note: Post op day#1.S/P Laproscopic Gastric sleeve placement under GA uneventful.Patient stable.No any anesthesia related problem.Patient DC from the anesthesia care.
--- NOTE | 2017-05-17 11:04 | PN ---
Progress Note (short form) - Note Progress Note: Pt without any complaints of SOB/CP or nausea. O He was straight cath'ed X2 overnight and has urinated a small amount after cath today. Vital Signs Period Temp Pulse Resp BP Sys/Candelario Pulse Ox Last 24 Hr 98.0 F-98.6 F 95-137 16-22 117-145/57-98 93-100 GEN: appears comfortable ABd: soft, non-distended, inc tenderness. Inc c/d/i. LE: no calf tenderness or swelling noted b/l CBC, BMP 05/17/17 06:35 05/17/17 06:35 UGI- no extravasation or leak noted. A/P: 37 yo male s/p lap sleeve gastrectomy, POD #1 UGI-negative, diet advanced Pt tachy cardic with normal VS/lab work. Placed his regular psych meds which may help with tachycardia, will continue continuous cardiac monitoring. DVT PPX, GI ppx D/w Dr. Ferrer <Luna Nunez - Last Filed: 05/17/17 10:55> - Note Progress Note: POD 1 Pain controlled Vital Signs Period Temp Pulse Resp BP Sys/Candelario Pulse Ox Last 24 Hr 98.0 F-98.7 F 95-137 16-22 117-168/57-116 93-100 Abd soft CBC, BMP 05/17/17 06:35 05/17/17 06:35 Nephrology consulted for elevated Cr Will workup as outpatient UGI: no leak/obstruction Clears Ambulate <Ace Ferrer - Last Filed: 05/17/17 17:44>
[2017-05-17] MEDS: VENLAFAXINE HCL 75 MG E.R. CAPSULES (FP) PO SCH (12:31)
[2017-05-17] MEDS: SODIUM CHLORIDE 1,000 ML IV SCH (12:31)
[2017-05-17] MEDS: OXcarbazepine 300 MG TABLET (UD) PO SCH ×2 (12:35→22:58)
--- NOTE | 2017-05-17 14:16 | CONSULT ---
Consult Consult Specialty:: Nephrology Reason for Consultation:: KEVIN - History of Present Illness Chief Complaint: s/p bariatric surgery History of Present Illness: Pt is a 37 year old male with pmhx of HTN, bipolar and obesity who is s/p gastric sleeve surgery. I was called to evaluate him for elevated creatinine. He denies history of CKD. He denies nsaid use. He denies shortness of breath or lower ext edema. He denies dysuria or hematuria. He is not aware of any abnormal kidney function tests. He did have elevated creatinine in February of last month. He says that he has had hypertension for over 12 years and has been on several regimens. - History Source History Provided By: Patient, Medical Record - Past Medical History Cardio/Vascular: Yes: HTN Psych: Yes: Bipolar, Depression - Past Surgical History Additional Surgical History: left hand surgery, gastric sleeve - Alcohol/Substance Use Hx Alcohol Use: No - Smoking History Smoking history: Current every day smoker Have you smoked in the past 12 months: No Aproximately how many cigarettes per day: 1 Home Medications - Allergies Allergies/Adverse Reactions: Allergies Allergy/AdvReac Type Severity Reaction Status Date / Time No Known Allergies Allergy Verified 05/16/17 14:42 - Home Medications Home Medications: Ambulatory Orders Metoprolol Tartrate 25 mg PO BID 03/26/15 Famotidine [Pepcid] 20 mg PO BID #60 tablet 03/26/17 Alprazolam [Xanax] 2 mg PO HS 05/15/17 Losartan/Hydrochlorothiazide [Losartan-Hctz 100-25 mg Tab] 1 tab PO DAILY Nifedipine ER [Procardia Xl -] 30 mg PO BID 05/15/17 Oxcarbazepine [Trileptal -] 300 mg PO BID 05/15/17 Venlafaxine HCl ER [Effexor Xr -] 225 mg PO DAILY 05/15/17 Famotidine [Pepcid] 20 mg PO BID #60 tablet 05/16/17 Oxycodone HCl/Acetaminophen [Percocet 5-325 mg Tablet] 1 - 2 tab PO Q6H #28 tab MDD 4 05/16/17 Family Disease History - Family Disease History Family History: Denies Review of Systems - Review of Systems Constitutional: reports: No Symptoms Eyes: reports: No Symptoms HENT: reports: No Symptoms Neck: reports: No Symptoms Cardiovascular: reports: No Symptoms Respiratory: reports: No Symptoms Gastrointestinal: reports: Abdominal Pain, Other (post op) Musculoskeletal: reports: No Symptoms Integumentary: reports: No Symptoms Neurological: reports: No Symptoms Endocrine: reports: No Symptoms Hematology/Lymphatic: reports: No Symptoms Physical Exam Vital Signs: Vital Signs Temperature 98.0 F 05/17/17 10:00 Pulse Rate 95 H 05/17/17 10:00 Respiratory Rate 20 05/17/17 10:00 Blood Pressure 134/57 05/17/17 10:00 O2 Sat by Pulse Oximetry (%) 97 05/17/17 09:00 Constitutional: Yes: Calm Eyes: Yes: Conjunctiva Clear HENT: Yes: Atraumatic Neck: Yes: Supple Cardiovascular: Yes: S1, S2 Respiratory: Yes: CTA Bilaterally Gastrointestinal: Yes: Normal Bowel Sounds, Soft Renal/: Yes: WNL Musculoskeletal: Yes: WNL Edema: No Integumentary: Yes: Tattoos Wound/Incision: Yes: Dressing Dry and Intact Neurological: Yes: Oriented Psychiatric: Yes: Oriented Labs: CBC, BMP 05/17/17 06:35 05/17/17 06:35 Laboratory Tests 03/26/15 03/26/17 03/26/17 08:22 07:56 23:25 WBC Hgb Sodium BUN Creatinine 0.9 1.6 H D 1.6 H Random Glucose 03/27/17 05/16/17 05/16/17 07:30 19:00 19:00 WBC 10.7 H Hgb 13.6 Sodium 135 L BUN 29 H D Creatinine 1.3 1.8 H D Random Glucose 121 H 05/17/17 05/17/17 06:35 06:35 WBC 12.2 H Hgb 13.1 Sodium 135 L BUN 27 H Creatinine 1.8 H Random Glucose 114 H Imaging - Results X-ray: Report Reviewed Problem List - Problems (1) CKD (chronic kidney disease) Code(s): N18.9 - CHRONIC KIDNEY DISEASE, UNSPECIFIED (2) BMI 39.0-39.9,adult Code(s): Z68.39 - BODY MASS INDEX (BMI) 39.0-39.9, ADULT (3) Morbid obesity due to excess calories Code(s): E66.01 - MORBID (SEVERE) OBESITY DUE TO EXCESS CALORIES (4) GERD (gastroesophageal reflux disease) Code(s): K21.9 - GASTRO-ESOPHAGEAL REFLUX DISEASE WITHOUT ESOPHAGITIS (5) High blood pressure Code(s): I10 - ESSENTIAL (PRIMARY) HYPERTENSION Qualifiers: Hypertension type: essential hypertension Qualified Code(s): I10 - Essential (primary) hypertension Assessment/Plan Current Medications Generic Name Dose Route Start Last Admin Trade Name Freq PRN Reason Stop Dose Admin Acetaminophen 325 mg 05/17/17 10:40 Tylenol - PO Q4H PRN PAIN LEVEL 1 - 3 Alprazolam 2 mg 05/16/17 23:00 05/17/17 00:21 Xanax - PO 2 mg HS JULIAN Administration Enoxaparin Sodium 40 mg 05/16/17 22:00 05/17/17 09:54 Lovenox - SQ 40 mg BID JULIAN Administration Hydromorphone HCl 1 mg 05/16/17 18:58 05/17/17 03:00 Dilaudid Injection - IVPB 1 mg Q3H PRN Administration pain Famotidine/Sodium Chloride 20 mg in 50 mls @ 100 mls/hr 05/16/17 22:00 09:54 Pepcid 20 Mg Premixed Ivpb - IVPB 100 mls/hr BID JULIAN Administration Sodium Chloride 1,000 mls @ 75 mls/hr 05/17/17 10:45 05/17/17 12:31 Normal Saline - IV 75 mls/hr ASDIR JULIAN Administration Metoprolol Tartrate 25 mg 05/17/17 22:00 Lopressor - PO BID JULIAN Nifedipine 30 mg 05/17/17 22:00 Procardia Xl - PO BID JULIAN Ondansetron HCl 4 mg 05/16/17 19:00 05/17/17 12:32 Zofran Injection IVPUSH 4 mg Q4H JULIAN Administration Oxcarbazepine 300 mg 05/17/17 10:48 05/17/17 12:35 Trileptal - PO Not Given BID JULIAN Oxycodone HCl 5 mg 05/17/17 10:40 Roxicodone - PO Q4H PRN PAIN LEVEL 1-5 Venlafaxine HCl 225 mg 05/17/17 11:30 05/17/17 12:31 Effexor Xr - PO 225 mg DAILY@0800 JULIAN Administration Laboratory Tests 03/26/17 03/26/17 05/16/17 07:56 23:25 19:00 Creatinine 1.6 H D 1.6 H 1.8 H D 05/17/17 06:35 Creatinine 1.8 H Impression 1. CKD based on elevated creatinine from a few months ago as well 2. HTN 3. depression 4. bipolar 5. obesity Plan - cont with fluids - repeat labs in am - check ua - check renal ultrasound - will need a full renal workup and outpt follow up - pt likely has CKD, will make more recommendations after reviewing initial workup Dr Paredes
[2017-05-17] MEDS: oxyCODONE HCL 5 MG TABLET PO PRN (14:42)
[2017-05-17] MEDS: ACETAMINOPHEN 325 MG TABLET (FP) PO PRN (14:42)
[2017-05-17 19:28] LABS: URINE APPEARANCE CLEAR; URINE BILIRUBIN NEGATIVE (NEGATIVE); URINE BLOOD NEGATIVE (NEGATIVE); URINE COLOR LTYELLOW; URINE GLUCOSE (UA) 1+ (NEGATIVE); URINE KETONE TRACE (NEGATIVE); URINE LEUK ESTERASE NEGATIVE (NEGATIVE); URINE NITRITE NEGATIVE (NEGATIVE); URINE PROTEIN NEGATIVE (NEGATIVE); URINE UROBILINOGEN NEGATIVE mg/dL (0.2-1.0)
[2017-05-17] MEDS ORDERED: HYDROmorphone HCL CARPU-JECT 2 MG/1 ML DISP.SYRIN ONE (19:42)
[2017-05-17] MEDS ORDERED: PATIENT'S OWN MEDICATION (NON-FORMULARY) (Famotidine [Pepcid] 20 MG) PO SCH (22:00)
[2017-05-17] MEDS ORDERED: PT OWN MED DRAWER 7, Y5N ONE (22:57)
[2017-05-17] MEDS: METOPROLOL TARTRATE 25 MG TABLET (FP) PO SCH (22:58)
[2017-05-18] MEDS: oxyCODONE HCL 5 MG TABLET PO PRN ×2 (01:05→09:10)
[2017-05-18] MEDS ORDERED: HYDROmorphone HCL CARPU-JECT 2 MG/1 ML DISP.SYRIN ONE (04:12)
[2017-05-18] MEDS: HYDROmorphone HCL CARPU-JECT 1 MG/1 ML DISP.SYRIN IVPB PRN (04:15)
[2017-05-18] MEDS: ONDANSETRON 4 MG/2 ML VIAL IVPUSH SCH ×4 (04:40→14:56)
[2017-05-18] MEDS ORDERED: PT OWN MED DRAWER 7, Y5N ONE ×2 (07:22→09:06)
[2017-05-18 08:25] LABS: CHLORIDE 97 mmol/L (98-107); POTASSIUM 3.9 mmol/L (3.5-5.1); SODIUM 136 mmol/L (136-145)
[2017-05-18 08:34] LABS: ALBUMIN 3.7 g/dl (3.4-5.0); ALK PHOS 75 U/L (45-117); ANION GAP 9 (8-16); BILIRUBIN,TOTAL 0.7 mg/dL (0.2-1.0); BLOOD UREA NITROGEN 17 mg/dL (7-18); CALCIUM 8.6 mg/dL (8.5-10.1); CO2 30 mmol/L (21-32); CREATININE 1.2 mg/dL (0.7-1.3); GLUCOSE,RANDOM 85 mg/dL (74-106); SGOT/AST 93 U/L (15-37); SGPT/ALT 99 U/L (12-78); TOT PROT 7.3 g/dl (6.4-8.2)
[2017-05-18 08:40] VITALS: TEMP 97.8
[2017-05-18] MEDS: OXcarbazepine 300 MG TABLET (UD) PO SCH (09:09)
[2017-05-18] MEDS: ENOXAPARIN NA (PORCINE) 40 MG/0.4 ML DISP.SYRIN SQ SCH (09:10)
[2017-05-18] MEDS: VENLAFAXINE HCL 75 MG E.R. CAPSULES (FP) PO SCH (09:10)
[2017-05-18] MEDS: ACETAMINOPHEN 325 MG TABLET (FP) PO PRN (09:10)
[2017-05-18] MEDS: METOPROLOL TARTRATE 25 MG TABLET (FP) PO SCH (09:12)
[2017-05-18] MEDS: FAMOTIDINE 20 MG/50 ML IVPB 20 MG/50 ML MG IVPB SCH (09:12)
[2017-05-18] MEDS: NIFEdipine E.R. 30 MG TABLET (FP) PO SCH (09:13)
--- NOTE | 2017-05-18 10:58 | CON.CARD ---
Consult Consult Specialty:: cardiology Reason for Consultation:: HTN; tachycardia - History of Present Illness Chief Complaint: Pt A&Ox3; slight pain at lap sites of gastric surgery History of Present Illness: Pt is a 37 year old male with pmhx of HTN, bipolar and morbid obesity who is s/ p gastric sleeve surgery; now underwent gastric bypass and liver biopsy this admission. Pt has been noted to have sinus tachycardia and uncontrolled BP, eliciting this consult. He denies history of CKD. He denies NSAID use. He denies shortness of breath or lower ext edema. He denies dysuria or hematuria. He is not aware of any abnormal kidney function tests. He did have elevated creatinine in February of last month. He says that he has had hypertension for over 12 years and has been on several regimens. He is planning on seeing Dr. Hall (ball truing machine operator) early next week as outpatient to closely follow BP (meds were recently changed). - History Source History Provided By: Patient, Medical Record Limitations to Obtaining History: No Limitations - Past Medical History Cardio/Vascular: Yes: HTN Psych: Yes: Bipolar, Depression - Past Surgical History Additional Surgical History: left hand surgery, gastric sleeve - Alcohol/Substance Use Hx Alcohol Use: No - Smoking History Smoking history: Current every day smoker Have you smoked in the past 12 months: No Aproximately how many cigarettes per day: 1 Home Medications - Allergies Allergies/Adverse Reactions: Allergies Allergy/AdvReac Type Severity Reaction Status Date / Time No Known Allergies Allergy Verified 05/16/17 14:42 - Home Medications Home Medications: Ambulatory Orders Metoprolol Tartrate 25 mg PO BID 03/26/15 Famotidine [Pepcid] 20 mg PO BID #60 tablet 03/26/17 Alprazolam [Xanax] 2 mg PO HS 05/15/17 Losartan/Hydrochlorothiazide [Losartan-Hctz 100-25 mg Tab] 1 tab PO DAILY Nifedipine ER [Procardia Xl -] 30 mg PO BID 05/15/17 Oxcarbazepine [Trileptal -] 300 mg PO BID 05/15/17 Venlafaxine HCl ER [Effexor Xr -] 225 mg PO DAILY 05/15/17 Famotidine [Pepcid] 20 mg PO BID #60 tablet 05/16/17 Oxycodone HCl/Acetaminophen [Percocet 5-325 mg Tablet] 1 - 2 tab PO Q6H #28 tab MDD 4 05/16/17 - Risk Factors Known Risk Factors: Yes: Age, Gender, Hypertension, Physical Inactivity, Smoking , Other (morbid obesity; s/p gastric bypass surgery 05/17/2017) Vital Signs: Vital Signs Temperature 97.8 F 05/18/17 08:39 Pulse Rate 103 H 05/18/17 08:39 Respiratory Rate 22 05/18/17 08:39 Blood Pressure 145/99 05/18/17 08:39 O2 Sat by Pulse Oximetry (%) 98 05/18/17 08:39 Constitutional: Yes: Well Nourished, Anxious Eyes: Yes: WNL HENT: Yes: WNL Neck: Yes: WNL Respiratory: Yes: WNL Gastrointestinal: Yes: Soft, Abdomen, Obese, Other (multiple laparoscopic sites are dressed, dry) JVD: No Carotid Bruit: No PMI: Non-Displaced Heart Sounds: Yes: S1, S2, S4 Musculoskeletal: Yes: WNL, Muscle Pain Extremities: Yes: WNL Edema: No Peripheral Pulses WNL: Yes Integumentary: Yes: Tattoos Neurological: Yes: WNL Psychiatric: Yes: Other (bipolar disorder) - Other Data Labs, Other Data: CBC, BMP 05/17/17 06:35 05/18/17 07:15 Ejection Fraction %: LVEF > or = 40 % Imaging - Results EKG: Image Reviewed Other: Image Reviewed (telemetry: NSR; HR now in 90s bpm) Problem List - Problems (1) Hepatomegaly Code(s): R16.0 - HEPATOMEGALY, NOT ELSEWHERE CLASSIFIED (2) Morbid obesity due to excess calories Code(s): E66.01 - MORBID (SEVERE) OBESITY DUE TO EXCESS CALORIES (3) Epigastric pain Code(s): R10.13 - EPIGASTRIC PAIN (4) GERD (gastroesophageal reflux disease) Code(s): K21.9 - GASTRO-ESOPHAGEAL REFLUX DISEASE WITHOUT ESOPHAGITIS (5) High blood pressure Assessment/Plan: On metoprolol. Increase nifedipine (change to XL 60 mg PO now, as pt already received 30 mg today; will likely need 90 mg daily). Code(s): I10 - ESSENTIAL (PRIMARY) HYPERTENSION Qualifiers: Hypertension type: essential hypertension Qualified Code(s): I10 - Essential (primary) hypertension (6) Obesity Code(s): E66.9 - OBESITY, UNSPECIFIED Qualifiers: Obesity type: unspecified obesity type Obesity classification: adult class 2 (BMI 35 - 39.9) Serious obesity comorbidity presence: unspecified whether serious comorbidity present Body mass index: unspecified BMI Qualified Code( s): E66.9 - Obesity, unspecified (7) Gastric bypass status for obesity Code(s): Z98.84 - BARIATRIC SURGERY STATUS (8) Psychological disorder Assessment/Plan: bipolar disorder Code(s): F99 - MENTAL DISORDER, NOT OTHERWISE SPECIFIED
[2017-05-18] MEDS ORDERED: NIFEdipine E.R 60 MG TABLET (UD) PO SCH (11:00)
[2017-05-18] MEDS: SODIUM CHLORIDE 1,000 ML IV SCH (11:22)
[2017-05-18] MEDS ORDERED: METOPROLOL SUCCINATE 50 MG TAB.SR.24H (FP) PO SCH (13:15)
[2017-05-18 14:22] VITALS: BP 146/95; PULSE 98
--- NOTE | 2017-05-22 13:13 | PATH ---
Surgical Pathology Report Patient Name: ELSI WEINSTEIN Med. Rec. #: [id number] /Age/Gender: 1980 (Age: 37) / M Account: [id number] Location: 4 W TELEMETRY U Taken: 05/16/2017 Received: 05/17/2017 Reported: 05/22/2017 Physicians: Ace Ferrer M.D. Specimen(s) Received A: GREATER CURVATURE STOMACH B: LIVER BIOPSY Clinical History Morbid obesity Final Diagnosis A. STOMACH, GREATER CURVATURE, LAPAROSCOPIC VERTICAL SLEEVE GASTRECTOMY: PORTION OF STOMACH WITH MILD CHRONIC GASTRITIS. IMMUNOHISTOCHEMICAL STAIN FOR H. PYLORI IS NEGATIVE. B. LIVER, BIOPSY: MILD STEATOHEPATITIS, SEVERE STEATOSIS (~70%). MILD PERIVENULAR, MILD PERISINUSOIDAL, MILD FOCAL PERIPORTAL FIBROSIS (STAGE I OF 4). SEE COMMENT. Comment: Biopsy is subcapsular with areas of thermal artifact. The liver parenchyma demonstrates severe mixed macro and macrovesicular steatosis (~70%). Focal lymphocytic infiltrate is seen in portal tracts. No significant interface activity is present. No plasmacytosis is present. No significant bile injury is seen. No granulomas are present. Focal hepatocyte ballooning is noted. No definitive Paige hyaline is identified. The trichrome stain highlights mild perivenular, mild perisinusoidal, and focal mild periportal fibrosis. No increase in Iron by Iron special stain. Overall, findings show mild steatohepatitis and severe steatosis; stage 1 of 4 (Brunt). Etiologies include alcohol and alcoholic liver injury including metabolic conditions, drug or toxin injury. Suggest clinical and serologic correlation. Electronically Signed Aurelia Paulino M.D. Gross Description A. Received in formalin, labeled "greater curvature of stomach," is a 134 gram, 19.0 x 3.5 x 3.2 cm. portion of stomach with a stapled margin of resection. The serosa is beaulieu-blanchard with minimal attached fat. The mucosa is beaulieu-pink with normal folds. No mucosal masses are identified. Client Evaluator sections are submitted in one cassette. B. Received in formalin labeled "liver biopsy," is a 3.0 x 1.5 x 0.9 cm beaulieu, irregular portion of soft tissue, consistent with liver. The specimen is trisected and entirely submitted in 3 cassettes. DL/05/17/201705/17/2017
== END 2017-05-18 18:12 | disposition home or self-care (01) | DRG 403 ==
LOC: JSAMEDAYSX 13:36 → EDSTATUS 15:30 → J4W 21:11
PROVIDERS: ADMIT Surgery; ATTEND Surgery
PROC: 0DB64Z3 Excision of Stomach, Percutaneous Endoscopic Approach, Vertical (ICD-10-PCS; principal; 2017-05-16 15:30)
PROC: 0FB24ZX Excision of Left Lobe Liver, Percutaneous Endoscopic Approach, Diagnostic (ICD-10-PCS; 2017-05-16 15:30)
PROC: 0DJ08ZZ Inspection of Upper Intestinal Tract, Via Natural or Artificial Opening Endoscopic (ICD-10-PCS; 2017-05-16 15:30)
DX: E66.01 Morbid (severe) obesity due to excess calories (principal); Z68.39 Body mass index [BMI] 39.0-39.9, adult; R16.0 Hepatomegaly, not elsewhere classified; I10 Essential (primary) hypertension; R00.0 Tachycardia, unspecified; F17.210 Nicotine dependence, cigarettes, uncomplicated; F31.9 Bipolar disorder, unspecified; K21.9 Gastro-esophageal reflux disease without esophagitis
CPT/HCPCS: 36415; 74241-TC; 76775-TC; 80053; 81003; 85027; 86850; 86900; 86901; 94760

== ENCOUNTER 2018-03-06 09:37 | Inpatient (IN) | payer OTHER ==
[2018-03-06] MEDS ORDERED: SODIUM CHLORIDE 1,000 ML IV STA (11:12)
[2018-03-06] MEDS ORDERED: CLINDAMYCIN 600MG PREMIX IVPB 600 MG/50 ML BAG IVPB ONE ×2 (11:14→12:50)
--- NOTE | 2018-03-06 11:17 | PDOC ---
History of Present Illness - General Chief Complaint: Wound Stated Complaint: INJURY Time Seen by Provider: 03/06/18 10:47 History Source: Patient Exam Limitations: No Limitations - History of Present Illness Initial Comments: 03/06/18 11:14 37 yr male with 4 days pain swelling redness to right foot causing chills the past 2 days. Pt states he was cleaning out apartment, moving furniture and boxes may have been bit or scratched. Pt denies injury. Pt with history of HTN, bipolar. denies vomiting. Past History - Past Medical History Allergies/Adverse Reactions: Allergies Allergy/AdvReac Type Severity Reaction Status Date / Time No Known Allergies Allergy Verified 03/06/18 09:42 Home Medications: Ambulatory Orders Metoprolol Tartrate 25 mg PO BID 03/26/15 Famotidine [Pepcid] 20 mg PO BID #60 tablet 03/26/17 Alprazolam [Xanax] 2 mg PO HS 05/15/17 Losartan/Hydrochlorothiazide [Losartan-Hctz 100-25 mg Tab] 1 tab PO DAILY Nifedipine ER [Procardia Xl -] 30 mg PO BID 05/15/17 Oxcarbazepine [Trileptal -] 300 mg PO BID 05/15/17 Venlafaxine HCl ER [Effexor Xr -] 225 mg PO DAILY 05/15/17 Famotidine [Pepcid] 20 mg PO BID #60 tablet 05/16/17 Oxycodone HCl/Acetaminophen [Percocet 5-325 mg Tablet] 1 - 2 tab PO Q6H #28 tab MDD 4 05/16/17 Anemia: No Asthma: No Cancer: No Cardiac Disorders: No CVA: No COPD: No CHF: No Dementia: No Diabetes: No GI Disorders: No Disorders: No HTN: Yes Hypercholesterolemia: No Liver Disease: No Psychiatric Problems: Yes (bipolar) Seizures: No Thyroid Disease: No - Surgical History Abdominal Surgery: Yes (lap band, removed 03/15) Appendectomy: Yes Orthopedic Surgery: Yes (left wrist fusion 2012) - Suicide/Smoking/Psychosocial Hx Smoking History: Former smoker Have you smoked in the past 12 months: Yes Number of Cigarettes Smoked Daily: 1 If you are a former smoker, when did you quit?: 2 Information on smoking cessation initiated: Yes 'Breaking Loose' booklet given: 05/16/18 Hx Alcohol Use: No Drug/Substance Use Hx: No Substance Use Type: None Hx Substance Use Treatment: No Review of Systems - Review of Systems Able to Perform ROS?: Yes Is the patient limited Mongolian proficient: No Constitutional: Yes: Symptoms Reported, Chills Musculoskeletal: Yes: Symptoms Reported, Joint Pain (right foot ) *Physical Exam - Vital Signs Last Vital Signs Temp Pulse Resp BP Pulse Ox 98.8 F 110 H 19 139/86 98 03/06/18 09:39 03/06/18 09:39 03/06/18 09:39 03/06/18 09:39 03/06/18 09:39 - Physical Exam General Appearance: Yes: Nourished, Appropriately Dressed, Mild Distress ( crying in pain ) HEENT: positive: EOMI, ADY Extremity: positive: Swelling, Erythema, Inflammation (right foot laterally with redness, warmth, tender to touch swelling noted ) Neurologic: positive: Fully Oriented, Alert, Normal Mood/Affect, Normal Response , Motor Strength 08/31 ED Treatment Course - LABORATORY CBC & Chemistry Diagram: 03/06/18 11:10 03/06/18 11:10 - Medications Given in the ED: ED Medications Discontinued Medications Generic Name Dose Route Start Last Admin Trade Name Freq PRN Reason Stop Dose Admin Oxycodone/Acetaminophen 1 combo 03/06/18 10:53 03/06/18 10:57 Percocet 5/325 - PO 03/06/18 10:54 1 combo ONCE ONE Administration Medical Decision Making - Medical Decision Making 03/06/18 11:16 cc: foot pain, edema, erythema warm to touch chills x2 nights will r/o cellulitus r/o fb, r/o SIRS labs, IVF, IVAB endorsed to ADDIE Servin in the main ER for further treatment *DC/Admit/Observation/Transfer Diagnosis at time of Disposition: Right foot pain Cellulitis Qualifiers: Site of cellulitis: extremity Site of cellulitis of extremity: lower extremity Laterality: right Qualified Code(s): L03.115 - Cellulitis of right lower limb - Discharge Dispostion Condition at time of disposition: Stable - Referrals - Patient Instructions - Post Discharge Activity
[2018-03-06 11:24] LABS: BASO % 0.3 % (0-2.0); EOS % 0.2 % (0-4.5); HEMATOCRIT 37.7 % (35.4-49); HEMOGLOBIN 12.9 GM/dL (11.7-16.9); LYMPH % 6.5 % (8-40); MCH 31.7 pg (25.7-33.7); MCHC 34.1 g/dl (32.0-35.9); MEAN CELL VOLUME 92.9 fl (80-96); MEAN PLT VOLUME 8.4 fl (7.5-11.1); MONO % 8.1 % (3.8-10.2); NEUT % 84.9 % (42.8-82.8); PLATELET COUNT 344 K/MM3 (134-434); RBC 4.06 M/mm3 (4.00-5.60); RDW 14.5 % (11.9-15.9); WHITE BLOOD COUNT 13.1 K/mm3 (4.0-10.0)
--- NOTE | 2018-03-06 11:26 | PDOC ---
*Physical Exam - Vital Signs Last Vital Signs Temp Pulse Resp BP Pulse Ox 98.8 F 110 H 19 139/86 98 03/06/18 09:39 03/06/18 09:39 03/06/18 09:39 03/06/18 09:39 03/06/18 09:39 - Physical Exam Comments: 03/06/18 11:32 GENERAL: Well developed, well nourished. Awake and alert. Pt appears uncomfortable MUSCULOSKELETAL Normal range of motion at all joints. No bony deformities or tenderness. No CVA tenderness. EXTREMITIES: No cyanosis. No clubbing. No edema. No calf tenderness. SKIN: R foot is warm, edematous and tender to the touch. Apparent streaking up to the R ankle. Warm and dry. Normal capillary refill. No rashes. No jaundice. NEUROLOGICAL: Alert, awake, appropriate. Cranial nerves 2-12 intact. No deficits to light touch and temperature in face, upper extremities and lower extremities. No motor deficits in the in face, upper extremities and lower extremities. Normoreflexic in the upper and lower extremities. Normal speech. Toes are down- going bilaterally. Gait is normal without ataxia. PSYCHIATRIC: Cooperative. Good eye contact. Appropriate mood and affect. ED Treatment Course - LABORATORY CBC & Chemistry Diagram: 03/06/18 11:10 03/06/18 11:10 - Medications Given in the ED: ED Medications Discontinued Medications Generic Name Dose Route Start Last Admin Trade Name Freq PRN Reason Stop Dose Admin Oxycodone/Acetaminophen 1 combo 03/06/18 10:53 03/06/18 10:57 Percocet 5/325 - PO 03/06/18 10:54 1 combo ONCE ONE Administration Medical Decision Making - Medical Decision Making 03/06/18 11:20 Pt was initially triaged to fast track for a wound to this R foot. Sign out received from GEMMA Dow that pt has a very warm and erythematous foot. Concerned for cellulitis and worsening pain. -On exam, foot is very swollen and warm to the touch. Pt appears uncomfortable. -Basic labs/blood cultures ordered in fast track -IV insert and pain control ordered. -Re-evaluate 03/06/18 14:09 -Pt still with significant pain, even to light touch. Labs show a WBC count of 13, ESR of 92, and CRP of 14. -Clinically concerned for osteo vs nec fas; will need inpatient MRI -Pt will need admission. Pt received 600mg IV clindamycin in the ED -Still pending foot x-ray -Pt admitted to Dr. Herrmann as PCP is Daniel Goncalves *DC/Admit/Observation/Transfer Diagnosis at time of Disposition: Right foot pain Cellulitis Qualifiers: Site of cellulitis: extremity Site of cellulitis of extremity: lower extremity Laterality: right Qualified Code(s): L03.115 - Cellulitis of right lower limb - Discharge Dispostion Condition at time of disposition: Stable Decision to Admit order: Yes - Referrals Referrals: Daniel Goncalves MD [Primary Care Provider] - - Patient Instructions - Post Discharge Activity
[2018-03-06 11:53] LABS: ALBUMIN 3.7 g/dl (3.4-5.0); ALK PHOS 90 U/L (45-117); ANION GAP 8 MMOL/L (8-16); BILIRUBIN,TOTAL 0.6 mg/dL (0.2-1); BLOOD UREA NITROGEN 11 mg/dL (7-18); CALCIUM 8.7 mg/dL (8.5-10.1); CHLORIDE 99 mmol/L (98-107); CO2 30 mmol/L (21-32); CREATININE 1.1 mg/dL (0.55-1.3); GLUCOSE,RANDOM 96 mg/dL (74-106); POTASSIUM 3.3 mmol/L (3.5-5.1); SGOT/AST 14 U/L (15-37); SGPT/ALT 23 U/L (13-61); SODIUM 137 mmol/L (136-145); TOT PROT 7.9 g/dl (6.4-8.2); URIC ACID 2.1 mg/dL (2.6-7.2)
--- NOTE | 2018-03-06 12:11 | PDOC ---
*Physical Exam - Vital Signs Last Vital Signs Temp Pulse Resp BP Pulse Ox 98.8 F 110 H 19 139/86 98 03/06/18 09:39 03/06/18 09:39 03/06/18 09:39 03/06/18 09:39 03/06/18 09:39 ED Treatment Course - LABORATORY CBC & Chemistry Diagram: 03/17/18 07:00 03/17/18 06:45 - ADDITIONAL ORDERS Additional order review: Laboratory Results 03/06/18 03/06/18 11:10 11:08 Sodium 137 Potassium 3.3 L Chloride 99 Carbon Dioxide 30 Anion Gap 8 BUN 11 Creatinine 1.1 Creat Clearance w eGFR > 60 Random Glucose 96 Lactic Acid 1.5 Uric Acid 2.1 L Calcium 8.7 Total Bilirubin 0.6 AST 14 L ALT 23 Alkaline Phosphatase 90 Total Protein 7.9 Albumin 3.7 03/06/18 11:10 RBC 4.06 MCV 92.9 MCHC 34.1 RDW 14.5 MPV 8.4 Neutrophils % 84.9 H Lymphocytes % 6.5 L Monocytes % 8.1 Eosinophils % 0.2 D Basophils % 0.3 D - Medications Given in the ED: ED Medications Discontinued Medications Generic Name Dose Route Start Last Admin Trade Name Freq PRN Reason Stop Dose Admin Oxycodone/Acetaminophen 1 combo 03/06/18 10:53 03/06/18 10:57 Percocet 5/325 - PO 03/06/18 10:54 1 combo ONCE ONE Administration Medical Decision Making - Medical Decision Making 03/06/18 12:10 Vital Signs Temp Pulse Resp BP Pulse Ox 98.8 F 110 H 19 139/86 98 03/06/18 09:39 03/06/18 09:39 03/06/18 09:39 03/06/18 09:39 03/06/18 09:39 Pt seen by the Advanced Practice Provider under my direct supervision Ancillary studies reviewed I agree with plan as outlined by the Advanced Practice Provider ADDIE Haney *DC/Admit/Observation/Transfer Diagnosis at time of Disposition: Cellulitis, Right foot pain - Discharge Dispostion Disposition: VNS/HOME HEALTH CARE Condition at time of disposition: Good - Referrals - Patient Instructions - Post Discharge Activity
[2018-03-06 13:04] LABS: ERYTHROCYTE SEDIMENTATION RATE 92 mm/hr (0-10)
[2018-03-06] MEDS ORDERED: ACETAMINOPHEN INJECTION 100 ML IVPB ONE (15:17)
[2018-03-06] MEDS: ACETAMINOPHEN 1000 MG/100 ML VIAL (NON FORMULARY) IVPB ONE ×2 (15:23→15:38)
--- NOTE | 2018-03-06 15:33 | CON.ID ---
Consult Consult Specialty:: infectious diseases Reason for Consultation:: cellulittis of the leg swelling of the left leg,pain left leg - History of Present Illness Chief Complaint: pain and swelling of the left leg History of Present Illness: Pt is a 37 y/o male with PMH significant for HTN, bipolar z, GERD and ex-IVDA. Pt presented to the ER w/ 4 days of pain/swelling/redness to his right foot causing chills the past 2 days. Pt states he was cleaning out apartment, moving furniture and boxes may have been bit or scratched. Pt denies injury. In the ER pt found to have WBC of 13 and lactic acid of 1.5. patient in lot of pain and discomfort currently patient leg swollen with entry point noted on the leg - History Source History Provided By: Patient Limitations to Obtaining History: No Limitations - Past Medical History Cardio/Vascular: Yes: HTN Psych: Yes: Bipolar, Depression - Alcohol/Substance Use Hx Alcohol Use: No - Smoking History Smoking history: Former smoker Have you smoked in the past 12 months: Yes Aproximately how many cigarettes per day: 1 If you are a former smoker, when did you quit?: 2 Home Medications - Allergies Allergies/Adverse Reactions: Allergies Allergy/AdvReac Type Severity Reaction Status Date / Time No Known Allergies Allergy Verified 03/06/18 09:42 - Home Medications Home Medications: Ambulatory Orders Metoprolol Tartrate 25 mg PO BID 03/26/15 Famotidine [Pepcid] 20 mg PO BID #60 tablet 03/26/17 Alprazolam [Xanax] 2 mg PO HS 05/15/17 Losartan/Hydrochlorothiazide [Losartan-Hctz 100-25 mg Tab] 1 tab PO DAILY Nifedipine ER [Procardia Xl -] 30 mg PO BID 05/15/17 Oxcarbazepine [Trileptal -] 300 mg PO BID 05/15/17 Venlafaxine HCl ER [Effexor Xr -] 225 mg PO DAILY 05/15/17 Famotidine [Pepcid] 20 mg PO BID #60 tablet 05/16/17 Oxycodone HCl/Acetaminophen [Percocet 5-325 mg Tablet] 1 - 2 tab PO Q6H #28 tab MDD 4 05/16/17 Review of Systems - Review of Systems Constitutional: reports: Chills, Fever Eyes: reports: No Symptoms HENT: reports: No Symptoms Neck: reports: No Symptoms Cardiovascular: reports: No Symptoms Respiratory: reports: No Symptoms Gastrointestinal: reports: No Symptoms Genitourinary: reports: No Symptoms Musculoskeletal: reports: Muscle Pain, Other Integumentary: reports: Change in Color, Erythema, Wound Neurological: reports: No Symptoms Endocrine: reports: No Symptoms Hematology/Lymphatic: reports: No Symptoms Psychiatric: reports: No Symptoms Physical Exam Vital Signs: Vital Signs Temperature 98.8 F 03/06/18 09:39 Pulse Rate 110 H 03/06/18 09:39 Respiratory Rate 19 03/06/18 09:39 Blood Pressure 139/86 03/06/18 09:39 O2 Sat by Pulse Oximetry (%) 98 03/06/18 09:39 Constitutional: Yes: Well Nourished, Calm, Moderate Distress Eyes: Yes: Conjunctiva Clear Neck: Yes: Supple, Trachea Midline Cardiovascular: Yes: Regular Rate and Rhythm Respiratory: Yes: Regular, CTA Bilaterally Gastrointestinal: Yes: Normal Bowel Sounds, Soft Musculoskeletal: Yes: Other Extremities: Yes: Other (rt foot swelling with fluctuation extending upto the knee joint black color noted on the foot,swelling of the foot) Edema: RLE: 2+ Integumentary: Yes: Erythema, Other (discoloration of the foot) Neurological: Yes: Alert, Oriented Psychiatric: Yes: Alert, Oriented Labs: CBC, BMP 03/06/18 11:10 03/06/18 11:10 Imaging - Results X-ray: Report Reviewed, Image Reviewed Assessment/Plan sepsis abscess of the foot swelling of the foot plan mri/ct scan of the foot saez start patient on abx patient will need surgery hydration rest as per the team
[2018-03-06] MEDS ORDERED: PIPERACILLIN/TAZOB 3.375 GM 3.375 GM/50 ML BAG IVPB ONE (16:05)
[2018-03-06] MEDS: PIPERACILLIN/TAZOB 3.375 GM 3.375 GM in DEXTROSE 5%-WATER - 50 ML IVPB SCH ×2 (16:11→19:50)
[2018-03-06] MEDS ORDERED: ACETAMINOPHEN 325 MG TABLET (FP) PO ONE ×2 (16:15→17:30)
[2018-03-06] MEDS ORDERED: ACETAMINOPHEN 325 MG TABLET (FP) ONE (16:17)
[2018-03-06] MEDS: VANCOMYCIN 1 GRAM (PRE-DOCKED) 1,000 MG/250 ML BAG IVPB SCH (16:47)
[2018-03-06] MEDS ORDERED: PNEUMOC 13-VAL CONJ-DIP CRM/PF 0.5 ML DISP.SYRIN IM ONE (17:08)
[2018-03-06] MEDS ORDERED: FLU VACCINE QUAD 60 MCG/0.5 ML (MDV 18-19) IM ONE (17:15)
[2018-03-06] MEDS ORDERED: MORPHINE SULFATE 2 MG/ML VIAL IVPUSH ONE (17:30)
--- NOTE | 2018-03-06 17:30 | HP ---
Admitting History and Physical - Admission History of Present Illness: Pt is a 37 y/o male with PMH significant for HTN, bipolar z, GERD and ex-IVDA. Pt presented to the ER w/ 4 days of pain/swelling/redness to his right foot causing chills the past 2 days. Pt states he was cleaning out apartment, moving furniture and boxes may have been bit or scratched. Pt denies injury. In the ER pt found to have WBC of 13 and lactic acid of 1.5. - Past Medical History Cardiovascular: Yes: HTN Gastrointestinal: Yes: GERD Psych: Yes: Addictions, Bipolar, Depression - Smoking History Smoking history: Former smoker Have you smoked in the past 12 months: Yes Aproximately how many cigarettes per day: 1 If you are a former smoker, when did you quit?: 2 - Alcohol/Substance Use Hx Alcohol Use: No Home Medications - Allergies Allergies/Adverse Reactions: Allergies Allergy/AdvReac Type Severity Reaction Status Date / Time No Known Allergies Allergy Verified 03/06/18 09:42 - Home Medications Home Medications: Ambulatory Orders Metoprolol Tartrate 25 mg PO BID 03/26/15 Famotidine [Pepcid] 20 mg PO BID #60 tablet 03/26/17 Alprazolam [Xanax] 2 mg PO HS 05/15/17 Losartan/Hydrochlorothiazide [Losartan-Hctz 100-25 mg Tab] 1 tab PO DAILY Nifedipine ER [Procardia Xl -] 30 mg PO BID 05/15/17 Oxcarbazepine [Trileptal -] 300 mg PO BID 05/15/17 Venlafaxine HCl ER [Effexor Xr -] 225 mg PO DAILY 05/15/17 Famotidine [Pepcid] 20 mg PO BID #60 tablet 05/16/17 Oxycodone HCl/Acetaminophen [Percocet 5-325 mg Tablet] 1 - 2 tab PO Q6H #28 tab MDD 4 05/16/17 Family Disease History - Family Disease History Family History: Unremarkable Review of Systems - Review of Systems Constitutional: reports: No Symptoms HENT: reports: No Symptoms Neck: reports: No Symptoms Cardiovascular: reports: No Symptoms Respiratory: reports: No Symptoms Gastrointestinal: reports: No Symptoms Genitourinary: reports: No Symptoms Physical Examination Vital Signs: Vital Signs Temperature 102.6 F H 03/06/18 16:21 Pulse Rate 111 H 03/06/18 14:15 Respiratory Rate 20 03/06/18 16:48 Blood Pressure 142/80 03/06/18 14:15 O2 Sat by Pulse Oximetry (%) 100 03/06/18 16:48 Constitutional: Yes: No Distress Neck: Yes: WNL, Supple Cardiovascular: Yes: WNL, Regular Rate and Rhythm Respiratory: Yes: WNL, Regular, CTA Bilaterally Gastrointestinal: Yes: WNL, Normal Bowel Sounds, Soft Extremities: Yes: Other (Rt foot swollen w/ erythema/warmth) Labs: CBC, BMP 03/06/18 11:10 03/06/18 11:10 Problem List - Problems (1) Cellulitis Assessment/Plan: Cont IV antibxs ID consult Will get podiatry consult Follow cultures Check MRI rt foot to r/o osteo XRAY rt foot pending Code(s): L03.90 - CELLULITIS, UNSPECIFIED Qualifiers: Site of cellulitis: extremity Site of cellulitis of extremity: lower extremity Laterality: right Qualified Code(s): L03.115 - Cellulitis of right lower limb (2) GERD (gastroesophageal reflux disease) Assessment/Plan: Cont pepcid Code(s): K21.9 - GASTRO-ESOPHAGEAL REFLUX DISEASE WITHOUT ESOPHAGITIS (3) High blood pressure Assessment/Plan: BP stable Cont antihypertensives Code(s): I10 - ESSENTIAL (PRIMARY) HYPERTENSION Qualifiers: Hypertension type: essential hypertension Qualified Code(s): I10 - Essential (primary) hypertension (4) Bipolar 1 disorder Code(s): F31.9 - BIPOLAR DISORDER, UNSPECIFIED
[2018-03-06] MEDS ORDERED: MORPHINE SULFATE 2 MG/ML VIAL IVPUSH PRN (17:31)
[2018-03-06] MEDS ORDERED: ONDANSETRON 4 MG/2 ML VIAL IVPUSH PRN (17:32)
[2018-03-06] MEDS ORDERED: PIPERACILLIN/TAZOBACTAM 3.375 GM VIAL IVPB ONE (17:38)
[2018-03-06] MEDS ORDERED: DEXTROSE 5%-WATER - 50 ML IVPB ONE (17:38)
[2018-03-06] MEDS: DEXTROSE 5%-0.45% SALINE 1,000 ML IV SCH (17:46)
[2018-03-06] MEDS: HEPARIN NA (PORCINE) 5,000 UNITS/ML 1ML VIAL SQ SCH (21:10)
[2018-03-06] MEDS ORDERED: morphine SULFATE 4 MG/ML VIAL IVPUSH PRN (22:15)
[2018-03-06] MEDS ORDERED: IBUPROFEN 400 MG TABLET (FP) PO ONE (22:30)
[2018-03-07] MEDS ORDERED: PIPERACILLIN/TAZOBACTAM 3.375 GM VIAL IVPB ONE ×3 (01:09→17:00)
[2018-03-07] MEDS ORDERED: DEXTROSE 5%-WATER - 50 ML IVPB ONE ×3 (01:09→17:00)
[2018-03-07] MEDS: PIPERACILLIN/TAZOB 3.375 GM 3.375 GM in DEXTROSE 5%-WATER - 50 ML IVPB SCH ×3 (01:17→17:06)
[2018-03-07] MEDS ORDERED: morphine SULFATE 4 MG/ML VIAL IVPUSH PRN (04:26)
[2018-03-07 07:36] LABS: BASO % 0.2 % (0-2.0); EOS % 0.8 % (0-4.5); HEMOGLOBIN 10.8 GM/dL (11.7-16.9); LYMPH % 6.4 % (8-40); MCHC 33.6 g/dl (32.0-35.9); MEAN CELL VOLUME 92.2 fl (80-96); MEAN PLT VOLUME 8.8 fl (7.5-11.1); NEUT % 84.6 % (42.8-82.8); PLATELET COUNT 284 K/MM3 (134-434); RBC 3.47 M/mm3 (4.00-5.60); RDW 14.4 % (11.9-15.9); WHITE BLOOD COUNT 10.9 K/mm3 (4.0-10.0)
[2018-03-07 08:20] LABS: ALBUMIN 2.8 g/dl (3.4-5.0); ALK PHOS 70 U/L (45-117); ANION GAP 9 MMOL/L (8-16); BILIRUBIN,TOTAL 0.5 mg/dL (0.2-1); BLOOD UREA NITROGEN 12 mg/dL (7-18); CALCIUM 7.9 mg/dL (8.5-10.1); CHLORIDE 99 mmol/L (98-107); CO2 28 mmol/L (21-32); CREATININE 1.1 mg/dL (0.55-1.3); GLUCOSE,RANDOM 93 mg/dL (74-106); POTASSIUM 3.8 mmol/L (3.5-5.1); SGOT/AST 12 U/L (15-37); SGPT/ALT 17 U/L (13-61); SODIUM 136 mmol/L (136-145); TOT PROT 6.3 g/dl (6.4-8.2)
[2018-03-07] MEDS ORDERED: PT OWN MED DRAWER 7, Y5N ONE (08:47)
[2018-03-07] MEDS: RANITIDINE HCL 150 MG TABLET (FP) PO SCH ×2 (09:12→23:10)
[2018-03-07] MEDS: HEPARIN NA (PORCINE) 5,000 UNITS/ML 1ML VIAL SQ SCH ×2 (09:12→23:09)
[2018-03-07] MEDS: METOPROLOL TARTRATE 25 MG TABLET (FP) PO SCH ×2 (09:12→23:09)
[2018-03-07] MEDS: OXcarbazepine 300 MG TABLET (UD) PO SCH ×2 (09:13→23:10)
[2018-03-07] MEDS: ACETAMINOPHEN 325 MG TABLET (FP) PO PRN ×2 (09:27→17:05)
[2018-03-07] MEDS: DEXTROSE 5%-0.45% SALINE 1,000 ML IV SCH ×3 (09:27→23:06)
[2018-03-07] MEDS: morphine SULFATE 4 MG/ML VIAL IVPUSH PRN ×2 (09:38→15:11)
--- NOTE | 2018-03-07 09:42 | PN ---
Progress Note, Physician History of Present Illness: continues to spike fever very painful leg has worsened since yesterday - Current Medication List Current Medications: Active Medications Acetaminophen (Tylenol -) 650 mg PO Q6H PRN PRN Reason: FEVER Last Admin: 03/07/18 09:27 Dose: 650 mg Heparin Sodium (Porcine) (Heparin -) 5,000 unit SQ BID [facility] Last Admin: 03/07/18 09:12 Dose: 5,000 unit Hydrochlorothiazide (Hctz -) 25 mg PO DAILY [facility] Last Admin: 03/07/18 09:13 Dose: 25 mg Vancomycin HCl (Vancomycin (Pre-Docked)) 1,000 mg in 250 mls @ 200 mls/hr IVPB Q24H [facility]; Protocol Last Admin: 03/06/18 16:47 Dose: 200 mls/hr Piperacillin Sod/Tazobactam (Sod 3.375 gm/ Dextrose) 50 mls @ 100 mls/hr IVPB Q8H-IV [facility]; Protocol Last Admin: 03/07/18 09:12 Dose: 100 mls/hr Dextrose/Sodium Chloride (D5-1/2ns -) 1,000 mls @ 75 mls/hr IV ASDIR [facility] Last Admin: 03/07/18 09:27 Dose: 75 mls/hr Losartan Potassium (Cozaar -) 100 mg PO DAILY [facility] Last Admin: 03/07/18 09:12 Dose: 100 mg Metoprolol Tartrate (Lopressor -) 25 mg PO BID [facility] Last Admin: 03/07/18 09:12 Dose: 25 mg Morphine Sulfate (Morphine Sulfate) 6 mg IVPUSH Q4H PRN PRN Reason: PAIN LEVEL 4-6 Last Admin: 03/07/18 09:38 Dose: 6 mg Ondansetron HCl (Zofran Injection) 4 mg IVPUSH Q6H PRN PRN Reason: NAUSEA Oxcarbazepine (Trileptal -) 300 mg PO BID [facility] Last Admin: 03/07/18 09:13 Dose: 300 mg Ranitidine HCl (Zantac -) 150 mg PO BID [facility] Last Admin: 03/07/18 09:12 Dose: 150 mg Venlafaxine HCl (Effexor Xr -) 225 mg PO DAILY [facility] Last Admin: 03/07/18 09:13 Dose: 225 mg - Objective Vital Signs: Vital Signs Temperature 98.8 F 03/07/18 06:00 Pulse Rate 109 H 03/07/18 06:00 Respiratory Rate 20 03/07/18 06:00 Blood Pressure 133/62 03/07/18 06:00 O2 Sat by Pulse Oximetry (%) 100 03/06/18 21:00 Constitutional: Yes: Calm, Moderate Distress, Obese Cardiovascular: Yes: Regular Rate and Rhythm Respiratory: Yes: Regular, CTA Bilaterally Gastrointestinal: Yes: Normal Bowel Sounds, Soft Musculoskeletal: Yes: Other Extremities: Yes: Erythema, Other (swelling of the leg which has worsened, streaking noted) Neurological: Yes: Alert, Oriented Psychiatric: Yes: Alert, Oriented Labs: CBC, BMP 03/07/18 06:00 03/07/18 06:00 Assessment/Plan sepsis abscess of the foot swelling of the foot plan awaiting for ct scan of the foot podiatry to see the patient continue abx hydration rest as per the team
[2018-03-07] MEDS ORDERED: NIFEdipine E.R. 30 MG TABLET (FP) PO SCH (10:00)
[2018-03-07] MEDS ORDERED: LOSARTAN POTASSIUM 50 MG TABLET (FP) PO SCH (10:00)
[2018-03-07] MEDS ORDERED: HYDROCHLOROTHIAZIDE 25 MG TABLET (FP) PO SCH (10:00)
[2018-03-07] MEDS ORDERED: VENLAFAXINE HCL 75 MG E.R. CAPSULES (FP) PO SCH (10:00)
[2018-03-07] MEDS ORDERED: PATIENT'S OWN MEDICATION (NON-FORMULARY) (Losartan/Hydrochlorothiazide [Losartan-Hctz 100- PO SCH (10:00)
--- NOTE | 2018-03-07 10:29 | PN ---
Progress Note (short form) - Note Progress Note: Vascular Surgery Pt seen and examined. Right foot warm , very painful. Pt has fevers and does not feel good. Xray shows possible foreign body in right foot. Pt going for plain CT scan to rule out abscess. Ordered by ID. Podiatry on case to possibly drain foot. Foot is warm, pink. Cleared from vascular standpoint for podiatry intervention. Ej Jackson DO
[2018-03-07] MEDS: VANCOMYCIN 1 GRAM (PRE-DOCKED) 1,000 MG/250 ML BAG IVPB SCH (15:11)
[2018-03-07] MEDS ORDERED: HYDROmorphone HCl 2 MG/ML VIAL IVPB PRN (16:57)
--- NOTE | 2018-03-07 20:27 | CONSULT ---
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 Thinks mice or rat droppings got into his foot - History Source Limitations to Obtaining History: Other (Patients states he is bipolar) - Past Medical History Cardio/Vascular: Yes: HTN Gastrointestinal: Yes: GERD Psych: Yes: Bipolar, Depression - Alcohol/Substance Use Hx Alcohol Use: No - Smoking History Smoking history: Former smoker Have you smoked in the past 12 months: Yes Aproximately how many cigarettes per day: 1 If you are a former smoker, when did you quit?: 2 Home Medications - Allergies Allergies/Adverse Reactions: Allergies Allergy/AdvReac Type Severity Reaction Status Date / Time No Known Allergies Allergy Verified 03/06/18 09:42 - Home Medications Home Medications: Ambulatory Orders Metoprolol Tartrate 25 mg PO BID 03/26/15 Famotidine [Pepcid] 20 mg PO BID #60 tablet 03/26/17 Alprazolam [Xanax] 2 mg PO HS 05/15/17 Losartan/Hydrochlorothiazide [Losartan-Hctz 100-25 mg Tab] 1 tab PO DAILY Nifedipine ER [Procardia Xl -] 30 mg PO BID 05/15/17 Oxcarbazepine [Trileptal -] 300 mg PO BID 05/15/17 Venlafaxine HCl ER [Effexor Xr -] 225 mg PO DAILY 05/15/17 Famotidine [Pepcid] 20 mg PO BID #60 tablet 05/16/17 Oxycodone HCl/Acetaminophen [Percocet 5-325 mg Tablet] 1 - 2 tab PO Q6H #28 tab MDD 4 05/16/17 Physical Exam Vital Signs: Vital Signs Temperature 100.4 F H 03/07/18 17:12 Pulse Rate 94 H 03/07/18 17:12 Respiratory Rate 20 03/07/18 17:12 Blood Pressure 112/67 03/07/18 17:12 O2 Sat by Pulse Oximetry (%) 99 03/07/18 09:00 Constitutional: Yes: Diaphoresis Wound/Incision: Yes: Other (abscess right foot dorsum tender) Labs: CBC, BMP 03/07/18 06:00 11/09/18 06:00 Imaging - Results X-ray: Image Reviewed Cat Scan: Image Reviewed (do not see foreign body on xray) Assessment/Plan abscess foreign body? Discussed tx with patient. Agreed to drainage of abscess. Explore for foreign body plantar lateral right foot. Put on schedule as an add on. Patient understood all risks benefits and alternatives. Reviewed xray and ct scan.
[2018-03-07] MEDS ORDERED: BUPIVACAINE HCL/PF 0.5% (5MG/ML) 10 ML VIAL ONE (20:54)
[2018-03-07] MEDS ORDERED: MIDAZOLAM HCL 2 MG/2 ML SINGLE DOSE VIAL ONE ×2 (21:00→21:35)
[2018-03-07] MEDS ORDERED: PROPOFOL 20 ML ONE ×2 (21:01→21:33)
[2018-03-07] MEDS ORDERED: LIDOCAINE HCL/PF 2% SDV 5ML VIAL ONE (21:01)
[2018-03-07] MEDS ORDERED: KETOROLAC TROMETHAMINE 30 MG/1 ML VIAL ONE ×2 (21:17→22:02)
[2018-03-07] MEDS ORDERED: BUPIVACAINE HCL/PF (5 MG/ML) 30 ML VIAL IJ ONE (21:20)
[2018-03-07] MEDS ORDERED: ACETAMINOPHEN WITH CODEINE 300MG/30MG TABLET PO PRN (21:53)
[2018-03-07] MEDS ORDERED: ONDANSETRON 4 MG/2 ML VIAL IVPUSH PRN (21:58)
[2018-03-07] MEDS ORDERED: LACTATED RINGERS SOLUTION 1,000 ML IV SCH (22:00)
[2018-03-07] MEDS ORDERED: ACETAMINOPHEN 1000 MG/100 ML VIAL (NON FORMULARY) IVPB ONE (22:01)
[2018-03-07] MEDS ORDERED: KETOROLAC TROMETHAMINE 30 MG/1 ML VIAL IM ONE (22:01)
[2018-03-07] MEDS ORDERED: ACETAMINOPHEN INJECTION 100 ML IVPB ONE (22:03)
--- NOTE | 2018-03-07 22:36 | PN ---
Progress Note, Physician - Current Medication List Current Medications: Active Medications Acetaminophen/Codeine Phosphate (Tylenol # 3 -) 1 tab PO Q4H PRN PRN Reason: PAIN LEVEL 1-5 Stop: 03/08/18 21:52 Heparin Sodium (Porcine) (Heparin -) 5,000 unit SQ BID [facility] Hydromorphone HCl (Dilaudid Vial -) 0.5 mg IVPB Q6H PRN PRN Reason: PAIN 4-6 Lactated Ringer's (Lactated Ringers Solution) 1,000 mls @ 75 mls/hr IV ASDIR [facility] Dextrose/Sodium Chloride (D5-1/2ns -) 1,000 mls @ 75 mls/hr IV ASDIR [facility] Vancomycin HCl (Vancomycin (Pre-Docked)) 1,000 mg in 250 mls @ 200 mls/hr IVPB Q24H [facility]; Protocol Piperacillin Sod/Tazobactam (Sod 3.375 gm/ Dextrose) 50 mls @ 100 mls/hr IVPB Q8H-IV [facility]; Protocol Metoprolol Tartrate (Lopressor -) 25 mg PO BID [facility] Ondansetron HCl (Zofran Injection) 4 mg IVPUSH Q6H PRN PRN Reason: NAUSEA AND/OR VOMITING Oxcarbazepine (Trileptal -) 300 mg PO BID [facility] Ranitidine HCl (Zantac -) 150 mg PO BID [facility] Venlafaxine HCl (Effexor Xr -) 225 mg PO DAILY [facility] - Objective Vital Signs: Vital Signs Temperature 100.4 F H 03/07/18 17:12 Pulse Rate 94 H 03/07/18 17:12 Respiratory Rate 20 03/07/18 17:12 Blood Pressure 112/67 03/07/18 17:12 O2 Sat by Pulse Oximetry (%) 99 03/07/18 09:00 Labs: CBC, BMP 03/07/18 06:00 03/07/18 06:00 Problem List - Problems (1) Cellulitis Code(s): L03.90 - CELLULITIS, UNSPECIFIED Qualifiers: Site of cellulitis: extremity Site of cellulitis of extremity: lower extremity Laterality: right Qualified Code(s): L03.115 - Cellulitis of right lower limb (2) GERD (gastroesophageal reflux disease) Code(s): K21.9 - GASTRO-ESOPHAGEAL REFLUX DISEASE WITHOUT ESOPHAGITIS (3) High blood pressure Code(s): I10 - ESSENTIAL (PRIMARY) HYPERTENSION Qualifiers: Hypertension type: essential hypertension Qualified Code(s): I10 - Essential (primary) hypertension (4) Bipolar 1 disorder Code(s): F31.9 - BIPOLAR DISORDER, UNSPECIFIED
[2018-03-07] MEDS: HYDROmorphone HCl 2 MG/ML VIAL IVPB PRN (23:07)
[2018-03-08] MEDS ORDERED: DEXTROSE 5%-WATER - 50 ML IVPB ONE ×3 (01:11→16:46)
[2018-03-08] MEDS ORDERED: PIPERACILLIN/TAZOBACTAM 3.375 GM VIAL IVPB ONE ×3 (01:11→16:45)
[2018-03-08] MEDS: PIPERACILLIN/TAZOB 3.375 GM 3.375 GM in DEXTROSE 5%-WATER - 50 ML IVPB SCH ×3 (01:56→17:11)
[2018-03-08] MEDS: HYDROmorphone HCl 2 MG/ML VIAL IVPB PRN ×4 (05:27→21:02)
[2018-03-08 08:05] LABS: BASO % 0.1 % (0-2.0); HEMOGLOBIN 10.2 GM/dL (11.7-16.9); LYMPH % 6.3 % (8-40); MCH 30.7 pg (25.7-33.7); MCHC 32.9 g/dl (32.0-35.9); MEAN CELL VOLUME 93.2 fl (80-96); MEAN PLT VOLUME 8.6 fl (7.5-11.1); MONO % 8.7 % (3.8-10.2); NEUT % 81.9 % (42.8-82.8); PLATELET COUNT 278 K/MM3 (134-434); RBC 3.33 M/mm3 (4.00-5.60); RDW 14.3 % (11.9-15.9); WHITE BLOOD COUNT 9.3 K/mm3 (4.0-10.0)
[2018-03-08 08:42] LABS: ALBUMIN 2.7 g/dl (3.4-5.0); ALK PHOS 77 U/L (45-117); ANION GAP 7 MMOL/L (8-16); BILIRUBIN,TOTAL 0.5 mg/dL (0.2-1); BLOOD UREA NITROGEN 13 mg/dL (7-18); CALCIUM 7.9 mg/dL (8.5-10.1); CHLORIDE 97 mmol/L (98-107); CO2 30 mmol/L (21-32); GLUCOSE,RANDOM 94 mg/dL (74-106); POTASSIUM 3.8 mmol/L (3.5-5.1); SGOT/AST 19 U/L (15-37); SGPT/ALT 20 U/L (13-61); SODIUM 135 mmol/L (136-145); TOT PROT 6.3 g/dl (6.4-8.2)
--- NOTE | 2018-03-08 09:16 | PN ---
Progress Note (short form) - Note Progress Note: Post op day#1.S/p I&D of right foot under TIVA uneventful.Patient stable.Patient stable c/o lot of pain so increased Dilaudid PRN.No any anesthesia related problem.Patient DC from the anesthesia care.
--- NOTE | 2018-03-08 09:52 | PN ---
Progress Note (short form) - Note Progress Note: POD#1/2 vss, Tmax 97.6 patient in xray at time of visit, wbc=9.3 normal post op Dressing change and packing change tomorrow. Patient may require further intervention. Will evlauate tomorrow during 1st dressing change. Cultures pending. May apply vac tomorrow to help with drainage and closure.
[2018-03-08] MEDS: VENLAFAXINE HCL 75 MG E.R. CAPSULES (FP) PO SCH (10:38)
[2018-03-08] MEDS: METOPROLOL TARTRATE 25 MG TABLET (FP) PO SCH ×2 (10:39→21:11)
[2018-03-08] MEDS: OXcarbazepine 300 MG TABLET (UD) PO SCH ×2 (10:39→21:12)
[2018-03-08] MEDS: RANITIDINE HCL 150 MG TABLET (FP) PO SCH ×2 (10:39→21:12)
--- NOTE | 2018-03-08 13:23 | CONSULT ---
Consult - text type - Consultation Consultation Note: Patient was seen after xray. Patient had no pain at this time. Discussed his hgba1c. CBR. will follow. Told him may need more intervention based on severity of wound.
--- NOTE | 2018-03-08 14:46 | PN ---
Progress Note, Physician History of Present Illness: feels better post dressing present no fevers still swollen leg - Current Medication List Current Medications: Active Medications Acetaminophen/Codeine Phosphate (Tylenol # 3 -) 1 tab PO Q4H PRN PRN Reason: PAIN LEVEL 1-5 Stop: 03/08/18 21:52 Heparin Sodium (Porcine) (Heparin -) 5,000 unit SQ BID [facility] Hydromorphone HCl (Dilaudid Vial -) 2 mg IVPB Q4H PRN PRN Reason: PAIN LEVEL 6-10 Last Admin: 03/08/18 10:38 Dose: 2 mg Dextrose/Sodium Chloride (D5-1/2ns -) 1,000 mls @ 75 mls/hr IV ASDIR [facility] Last Admin: 03/07/18 23:06 Dose: 75 mls/hr Vancomycin HCl (Vancomycin (Pre-Docked)) 1,000 mg in 250 mls @ 200 mls/hr IVPB Q24H [facility]; Protocol Piperacillin Sod/Tazobactam (Sod 3.375 gm/ Dextrose) 50 mls @ 100 mls/hr IVPB Q8H-IV [facility]; Protocol Last Admin: 03/08/18 10:38 Dose: 100 mls/hr Metoprolol Tartrate (Lopressor -) 25 mg PO BID [facility] Last Admin: 03/08/18 10:39 Dose: 25 mg Ondansetron HCl (Zofran Injection) 4 mg IVPUSH Q6H PRN PRN Reason: NAUSEA AND/OR VOMITING Oxcarbazepine (Trileptal -) 300 mg PO BID [facility] Last Admin: 03/08/18 10:39 Dose: 300 mg Ranitidine HCl (Zantac -) 150 mg PO BID [facility] Last Admin: 03/08/18 10:39 Dose: 150 mg Venlafaxine HCl (Effexor Xr -) 225 mg PO DAILY [facility] Last Admin: 03/08/18 10:38 Dose: 225 mg - Objective Vital Signs: Vital Signs Temperature 98.8 F 03/08/18 13:29 Pulse Rate 91 H 03/08/18 13:29 Respiratory Rate 18 03/08/18 13:29 Blood Pressure 113/52 L 03/08/18 13:29 O2 Sat by Pulse Oximetry (%) 98 03/07/18 23:19 Constitutional: Yes: No Distress, Calm Cardiovascular: Yes: Regular Rate and Rhythm Respiratory: Yes: Regular, CTA Bilaterally Gastrointestinal: Yes: Normal Bowel Sounds, Soft Musculoskeletal: Yes: WNL Extremities: Yes: Other Wound/Incision: Yes: Dressing Dry and Intact Neurological: Yes: Alert, Oriented Psychiatric: Yes: Alert, Oriented Labs: CBC, BMP 03/08/18 06:50 03/08/18 06:50 Assessment/Plan sepsis abscess of the foot swelling of the foot plan continue abx await for cx report rest as per the team wound care
--- NOTE | 2018-03-08 16:28 | PN ---
Progress Note, Physician - Current Medication List Current Medications: Active Medications Acetaminophen/Codeine Phosphate (Tylenol # 3 -) 1 tab PO Q4H PRN PRN Reason: PAIN LEVEL 1-5 Stop: 03/08/18 21:52 Heparin Sodium (Porcine) (Heparin -) 5,000 unit SQ BID [facility] Hydromorphone HCl (Dilaudid Vial -) 2 mg IVPB Q4H PRN PRN Reason: PAIN LEVEL 6-10 Last Admin: 03/08/18 10:38 Dose: 2 mg Dextrose/Sodium Chloride (D5-1/2ns -) 1,000 mls @ 75 mls/hr IV ASDIR [facility] Last Admin: 03/07/18 23:06 Dose: 75 mls/hr Vancomycin HCl (Vancomycin (Pre-Docked)) 1,000 mg in 250 mls @ 200 mls/hr IVPB Q24H [facility]; Protocol Piperacillin Sod/Tazobactam (Sod 3.375 gm/ Dextrose) 50 mls @ 100 mls/hr IVPB Q8H-IV [facility]; Protocol Last Admin: 03/08/18 10:38 Dose: 100 mls/hr Metoprolol Tartrate (Lopressor -) 25 mg PO BID [facility] Last Admin: 03/08/18 10:39 Dose: 25 mg Ondansetron HCl (Zofran Injection) 4 mg IVPUSH Q6H PRN PRN Reason: NAUSEA AND/OR VOMITING Oxcarbazepine (Trileptal -) 300 mg PO BID [facility] Last Admin: 03/08/18 10:39 Dose: 300 mg Ranitidine HCl (Zantac -) 150 mg PO BID [facility] Last Admin: 03/08/18 10:39 Dose: 150 mg Venlafaxine HCl (Effexor Xr -) 225 mg PO DAILY [facility] Last Admin: 03/08/18 10:38 Dose: 225 mg - Objective Vital Signs: Vital Signs Temperature 98.8 F 03/08/18 13:29 Pulse Rate 91 H 03/08/18 13:29 Respiratory Rate 18 03/08/18 13:29 Blood Pressure 113/52 L 03/08/18 13:29 O2 Sat by Pulse Oximetry (%) 98 03/07/18 23:19 Labs: CBC, BMP 03/08/18 06:50 03/08/18 06:50 Problem List - Problems (1) Cellulitis Code(s): L03.90 - CELLULITIS, UNSPECIFIED Qualifiers: Site of cellulitis: extremity Site of cellulitis of extremity: lower extremity Laterality: right Qualified Code(s): L03.115 - Cellulitis of right lower limb (2) GERD (gastroesophageal reflux disease) Code(s): K21.9 - GASTRO-ESOPHAGEAL REFLUX DISEASE WITHOUT ESOPHAGITIS (3) High blood pressure Code(s): I10 - ESSENTIAL (PRIMARY) HYPERTENSION Qualifiers: Hypertension type: essential hypertension Qualified Code(s): I10 - Essential (primary) hypertension (4) Bipolar 1 disorder Code(s): F31.9 - BIPOLAR DISORDER, UNSPECIFIED
[2018-03-08] MEDS: VANCOMYCIN 1 GRAM (PRE-DOCKED) 1,000 MG/250 ML BAG IVPB SCH (17:11)
[2018-03-08] MEDS: HEPARIN NA (PORCINE) 5,000 UNITS/ML 1ML VIAL SQ SCH ×2 (17:12→21:12)
[2018-03-08] MEDS ORDERED: PT OWN MED DRAWER 7, Y5N ONE (19:49)
[2018-03-08] MEDS: DEXTROSE 5%-0.45% SALINE 1,000 ML IV SCH (21:17)
[2018-03-08] MEDS ORDERED: IBUPROFEN 400 MG TABLET (FP) PO ONE (23:15)
[2018-03-09] MEDS ORDERED: PIPERACILLIN/TAZOBACTAM 3.375 GM VIAL IVPB ONE ×3 (01:05→17:15)
[2018-03-09] MEDS ORDERED: DEXTROSE 5%-WATER - 50 ML IVPB ONE ×3 (01:06→17:15)
[2018-03-09] MEDS: PIPERACILLIN/TAZOB 3.375 GM 3.375 GM in DEXTROSE 5%-WATER - 50 ML IVPB SCH ×3 (01:26→17:19)
[2018-03-09] MEDS: HYDROmorphone HCl 2 MG/ML VIAL IVPB PRN ×6 (02:23→22:27)
[2018-03-09 08:22] LABS: BASO % 0.4 % (0-2.0); EOS % 5.2 % (0-4.5); HEMATOCRIT 29.5 % (35.4-49); HEMOGLOBIN 9.8 GM/dL (11.7-16.9); LYMPH % 20.7 % (8-40); MCHC 33.3 g/dl (32.0-35.9); MEAN CELL VOLUME 93.2 fl (80-96); MEAN PLT VOLUME 8.5 fl (7.5-11.1); MONO % 12.7 % (3.8-10.2); PLATELET COUNT 295 K/MM3 (134-434); RBC 3.17 M/mm3 (4.00-5.60); RDW 14.4 % (11.9-15.9); WHITE BLOOD COUNT 5.1 K/mm3 (4.0-10.0)
[2018-03-09 08:37] LABS: ALBUMIN 2.8 g/dl (3.4-5.0); ALK PHOS 80 U/L (45-117); ANION GAP 8 MMOL/L (8-16); BILIRUBIN,TOTAL 0.4 mg/dL (0.2-1); BLOOD UREA NITROGEN 9 mg/dL (7-18); CALCIUM 8.1 mg/dL (8.5-10.1); CHLORIDE 99 mmol/L (98-107); CO2 31 mmol/L (21-32); CREATININE 0.8 mg/dL (0.55-1.3); GLUCOSE,RANDOM 77 mg/dL (74-106); POTASSIUM 3.9 mmol/L (3.5-5.1); SGOT/AST 14 U/L (15-37); SGPT/ALT 22 U/L (13-61); SODIUM 139 mmol/L (136-145); TOT PROT 6.6 g/dl (6.4-8.2)
[2018-03-09 09:39] LABS: ERYTHROCYTE SEDIMENTATION RATE 107 mm/hr (0-10)
[2018-03-09] MEDS ORDERED: PT OWN MED DRAWER 7, Y5N ONE ×2 (09:59→21:22)
[2018-03-09] MEDS: HEPARIN NA (PORCINE) 5,000 UNITS/ML 1ML VIAL SQ SCH ×2 (10:02→21:45)
[2018-03-09] MEDS: METOPROLOL TARTRATE 25 MG TABLET (FP) PO SCH ×2 (10:02→21:45)
[2018-03-09] MEDS: OXcarbazepine 300 MG TABLET (UD) PO SCH ×2 (10:03→21:45)
[2018-03-09] MEDS: VENLAFAXINE HCL 75 MG E.R. CAPSULES (FP) PO SCH (10:03)
[2018-03-09] MEDS: RANITIDINE HCL 150 MG TABLET (FP) PO SCH ×2 (10:04→21:45)
--- NOTE | 2018-03-09 14:32 | PN ---
Progress Note (short form) - Note Progress Note: POD#1.5 days. Patients father present. vss, Tmax 98.3 +dressing intact, +dry blood, +packing intact, +improved cellulitis, -mal odor, +improved edema, +granulation tissue noted, demarcating skin dorsally,wbc=5.1, dbpf5p=9.5, qwu=521, post op xray reviewed foreign body noted on lateral view in plantar foot, no portal of entry noted plantar aspect, -tender plantar foot, -erythema plantar foot, no growth from wound cultures yet normal post op foreign body Packing pulled. Wound irrigated with betadine sterile water. Iodoform packing replaced x 3 pieces. Betadine dressing applied. Discussed with patient at length current condition. States that he walks barefoot and he has stepped on glass in the past and it comes out on it's own. Does not recall stepping on anything recently. States he thinks he scraped top of his foot and it got dirty with rat droppings and debris from floor. Discussed possibility of going after foreign body from plantar aspect but not at this time due to the infection and abscess site on top of his foot. Explained that foreign body was not visible from where abscess was evacuated and that going after it at same time abscess was evacuated would have spread and or seeded the infection to plantar compartment. Will follow and observe. May still need intervention dorsally depending on progress. Will leave foreign body alone for now as most likely not the nidus of infection. Patient responding to current treatment plan.
--- NOTE | 2018-03-09 14:41 | OP ---
Operative Note - Note: Operative Date: 03/07/18 Pre-Operative Diagnosis: Abscess right foot. Foreign body right foot. Operation: Incision and drainage of abscess right foot. Explore wound for foreign body. Pulse lavage with antibiotic(bacitracin) 2000cc. Superficial and deep wound culture. Findings: Foul smelling purulent discharge from abscess right foot. Wound cultures superficial and deep lateral foot. Post-Operative Diagnosis: Same as Pre-op Surgeon: Oralia Stringer [employer] Instructor: Joao Bain Anesthesia: Local, MAC Specimens Removed: Purulent foul smelling discharge. Necrotic tissue. Estimated Blood Loss (mls): 50 Instrument used (Debridements only): 15 blade Drains & Tubes with Location: 1/ iodoform packing x 3 Operative Report Dictated: No
--- NOTE | 2018-03-09 16:39 | PN ---
Progress Note, Physician History of Present Illness: patient stable dressing changed today - Current Medication List Current Medications: Active Medications Heparin Sodium (Porcine) (Heparin -) 5,000 unit SQ BID [facility] Last Admin: 03/09/18 10:02 Dose: 5,000 unit Hydromorphone HCl (Dilaudid Vial -) 2 mg IVPB Q4H PRN PRN Reason: PAIN LEVEL 6-10 Last Admin: 03/09/18 14:11 Dose: 2 mg Dextrose/Sodium Chloride (D5-1/2ns -) 1,000 mls @ 75 mls/hr IV ASDIR [facility] Last Admin: 03/08/18 21:17 Dose: 75 mls/hr Vancomycin HCl (Vancomycin (Pre-Docked)) 1,000 mg in 250 mls @ 200 mls/hr IVPB Q24H [facility]; Protocol Last Admin: 03/08/18 17:11 Dose: 200 mls/hr Piperacillin Sod/Tazobactam (Sod 3.375 gm/ Dextrose) 50 mls @ 100 mls/hr IVPB Q8H-IV [facility]; Protocol Last Admin: 03/09/18 10:02 Dose: 100 mls/hr Metoprolol Tartrate (Lopressor -) 25 mg PO BID [facility] Last Admin: 03/09/18 10:02 Dose: 25 mg Ondansetron HCl (Zofran Injection) 4 mg IVPUSH Q6H PRN PRN Reason: NAUSEA AND/OR VOMITING Oxcarbazepine (Trileptal -) 300 mg PO BID [facility] Last Admin: 03/09/18 10:03 Dose: 300 mg Ranitidine HCl (Zantac -) 150 mg PO BID [facility] Last Admin: 03/09/18 10:04 Dose: 150 mg Venlafaxine HCl (Effexor Xr -) 225 mg PO DAILY [facility] Last Admin: 03/09/18 10:03 Dose: 225 mg - Objective Vital Signs: Vital Signs Temperature 98.3 F 03/09/18 13:24 Pulse Rate 73 03/09/18 13:24 Respiratory Rate 18 03/09/18 13:24 Blood Pressure 117/75 03/09/18 13:24 O2 Sat by Pulse Oximetry (%) 98 03/07/18 23:19 Constitutional: Yes: No Distress, Calm, Obese Cardiovascular: Yes: Regular Rate and Rhythm Gastrointestinal: Yes: Normal Bowel Sounds, Soft Musculoskeletal: Yes: WNL Extremities: Yes: Other Wound/Incision: Yes: Dressing Dry and Intact Neurological: Yes: Alert, Oriented Psychiatric: Yes: Alert, Oriented Labs: CBC, BMP 03/09/18 06:59 03/09/18 06:59 Assessment/Plan sepsis abscess of the foot swelling of the foot plan continue abx await for cx report rest as per the team wound care
[2018-03-09] MEDS: VANCOMYCIN 1 GRAM (PRE-DOCKED) 1,000 MG/250 ML BAG IVPB SCH (17:19)
--- NOTE | 2018-03-09 20:30 | OP ---
DATE OF OPERATION: 03/07/2018 PREOPERATIVE DIAGNOSIS: Abscess, right foot; foreign body, right foot. POSTOPERATIVE DIAGNOSIS: Abscess, right foot; foreign body, right foot. SURGEON: Oralia Stringer DPM FISH BAILER: Joao Bain DPM PROCEDURE: After noting all preoperative vital signs within normal limits and after surgical consent was signed and witnessed, the patient was brought to the OR and placed on the table in a supine position. An IV line had been started on the floor. Once the patient was in the OR, the patient was sedated and an ankle block was applied to the right ankle. At this time, the foot was then prepped and draped in the usual sterile fashion. Once this was done, attention was directed to the lateral aspect of the right foot dorsally, where a 9-cm long incision was created in a lazy-S fashion with the center of the incision being over the abscess apex. This incision was deepened using sharp dissection. Once the incision was made at the center of the abscess, foul-smelling purulent discharge was expressed from the wound and it was cultured at this time. This incision was deepened using sharp and blunt dissection, avoid neurovascular structures. At this time, all pus-like discharge was expressed from the foot utilizing pressure from distal to posterior and from posterior to distal, and from lateral to dorsal. At this time, utilizing a suction tip, the wound was explored and any remaining discharge was sucked into the tip. A flush was then done with copious amounts of sterile saline that had antibiotic irrigation added to it using pulse lavage, approximately 2000 mL were utilized. Once this was done, the wound was explored dorsally and laterally for any foreign body. There was none noted at that time. At this time, it was deemed that the foreign body was deep to where the abscess was, and was not the nidus of infection. The wound was then flushed again one more time. It was packed with 3 pieces of iodoform gauze going proximally, laterally, and medially. Once this was done, Xeroform gauze, dry sterile gauze, and ABD PAD was applied with a Kerlix dressing. Patient tolerated the anesthesia and the procedure well. Patient returned to recovery room, vital signs stable and vascular status intact. Oralia Stringer DPM /[id number]
--- NOTE | 2018-03-09 21:45 | PN ---
Progress Note, Physician History of Present Illness: Pt still requiring pain meds - Current Medication List Current Medications: Active Medications Heparin Sodium (Porcine) (Heparin -) 5,000 unit SQ BID [facility] Last Admin: 03/09/18 10:02 Dose: 5,000 unit Hydromorphone HCl (Dilaudid Vial -) 2 mg IVPB Q4H PRN PRN Reason: PAIN LEVEL 6-10 Last Admin: 03/09/18 18:28 Dose: 2 mg Dextrose/Sodium Chloride (D5-1/2ns -) 1,000 mls @ 75 mls/hr IV ASDIR [facility] Last Admin: 03/08/18 21:17 Dose: 75 mls/hr Vancomycin HCl (Vancomycin (Pre-Docked)) 1,000 mg in 250 mls @ 200 mls/hr IVPB Q24H [facility]; Protocol Last Admin: 03/09/18 17:19 Dose: 200 mls/hr Piperacillin Sod/Tazobactam (Sod 3.375 gm/ Dextrose) 50 mls @ 100 mls/hr IVPB Q8H-IV [facility]; Protocol Last Admin: 03/09/18 17:19 Dose: 100 mls/hr Metoprolol Tartrate (Lopressor -) 25 mg PO BID [facility] Last Admin: 03/09/18 10:02 Dose: 25 mg Ondansetron HCl (Zofran Injection) 4 mg IVPUSH Q6H PRN PRN Reason: NAUSEA AND/OR VOMITING Oxcarbazepine (Trileptal -) 300 mg PO BID [facility] Last Admin: 03/09/18 10:03 Dose: 300 mg Ranitidine HCl (Zantac -) 150 mg PO BID [facility] Last Admin: 03/09/18 10:04 Dose: 150 mg Venlafaxine HCl (Effexor Xr -) 225 mg PO DAILY [facility] Last Admin: 03/09/18 10:03 Dose: 225 mg - Objective Vital Signs: Vital Signs Temperature 97.3 F L 03/09/18 18:00 Pulse Rate 77 03/09/18 18:00 Respiratory Rate 18 03/09/18 18:00 Blood Pressure 131/100 03/09/18 18:00 O2 Sat by Pulse Oximetry (%) 98 03/07/18 23:19 Neck: Yes: WNL, Supple Cardiovascular: Yes: WNL, Regular Rate and Rhythm Respiratory: Yes: WNL, Regular, CTA Bilaterally Gastrointestinal: Yes: WNL, Normal Bowel Sounds, Soft Extremities: Yes: Other (Rt foot in dressing) Labs: CBC, BMP 03/09/18 06:59 03/09/18 06:59 Problem List - Problems (1) Cellulitis Assessment/Plan: Abscess rt foot S/P I&D Rt foot Cont IV antibxs Will decrease IV dilaudid dose and observe Code(s): L03.90 - CELLULITIS, UNSPECIFIED Qualifiers: Site of cellulitis: extremity Site of cellulitis of extremity: lower extremity Laterality: right Qualified Code(s): L03.115 - Cellulitis of right lower limb (2) GERD (gastroesophageal reflux disease) Assessment/Plan: Cont pepcid Code(s): K21.9 - GASTRO-ESOPHAGEAL REFLUX DISEASE WITHOUT ESOPHAGITIS (3) High blood pressure Assessment/Plan: BP stable Cont antihypertensives Code(s): I10 - ESSENTIAL (PRIMARY) HYPERTENSION Qualifiers: Hypertension type: essential hypertension Qualified Code(s): I10 - Essential (primary) hypertension (4) Bipolar 1 disorder Code(s): F31.9 - BIPOLAR DISORDER, UNSPECIFIED
[2018-03-10] MEDS ORDERED: PIPERACILLIN/TAZOBACTAM 3.375 GM VIAL IVPB ONE ×3 (01:50→14:42)
[2018-03-10] MEDS ORDERED: DEXTROSE 5%-WATER - 50 ML IVPB ONE ×3 (01:50→14:42)
[2018-03-10] MEDS: PIPERACILLIN/TAZOB 3.375 GM 3.375 GM in DEXTROSE 5%-WATER - 50 ML IVPB SCH ×3 (03:13→18:14)
[2018-03-10] MEDS: HYDROmorphone HCl 2 MG/ML VIAL IVPB PRN ×4 (03:17→21:56)
[2018-03-10] MEDS: VENLAFAXINE HCL 75 MG E.R. CAPSULES (FP) PO SCH (09:51)
[2018-03-10] MEDS: HEPARIN NA (PORCINE) 5,000 UNITS/ML 1ML VIAL SQ SCH ×2 (09:51→21:54)
[2018-03-10] MEDS: OXcarbazepine 300 MG TABLET (UD) PO SCH ×2 (09:52→21:55)
[2018-03-10] MEDS: RANITIDINE HCL 150 MG TABLET (FP) PO SCH ×2 (09:52→21:55)
[2018-03-10] MEDS: METOPROLOL TARTRATE 25 MG TABLET (FP) PO SCH ×2 (09:52→21:55)
--- NOTE | 2018-03-10 14:29 | PN ---
Progress Note, Physician History of Present Illness: stable no new issues awaiting for wound change - Current Medication List Current Medications: Active Medications Heparin Sodium (Porcine) (Heparin -) 5,000 unit SQ BID [facility] Last Admin: 03/10/18 09:51 Dose: 5,000 unit Hydromorphone HCl (Dilaudid Vial -) 0.5 mg IVPB Q6H PRN PRN Reason: PAIN LEVEL 6-10 Last Admin: 03/10/18 10:38 Dose: 0.5 mg Dextrose/Sodium Chloride (D5-1/2ns -) 1,000 mls @ 75 mls/hr IV ASDIR [facility] Last Admin: 03/08/18 21:17 Dose: 75 mls/hr Vancomycin HCl (Vancomycin (Pre-Docked)) 1,000 mg in 250 mls @ 200 mls/hr IVPB Q24H [facility]; Protocol Last Admin: 03/09/18 17:19 Dose: 200 mls/hr Piperacillin Sod/Tazobactam (Sod 3.375 gm/ Dextrose) 50 mls @ 100 mls/hr IVPB Q8H-IV [facility]; Protocol Last Admin: 03/10/18 10:07 Dose: 100 mls/hr Metoprolol Tartrate (Lopressor -) 25 mg PO BID [facility] Last Admin: 03/10/18 09:52 Dose: 25 mg Ondansetron HCl (Zofran Injection) 4 mg IVPUSH Q6H PRN PRN Reason: NAUSEA AND/OR VOMITING Oxcarbazepine (Trileptal -) 300 mg PO BID [facility] Last Admin: 03/10/18 09:52 Dose: 300 mg Ranitidine HCl (Zantac -) 150 mg PO BID [facility] Last Admin: 03/10/18 09:52 Dose: 150 mg Venlafaxine HCl (Effexor Xr -) 225 mg PO DAILY [facility] Last Admin: 03/10/18 09:51 Dose: 225 mg - Objective Vital Signs: Vital Signs Temperature 98.4 F 03/10/18 14:19 Pulse Rate 88 03/10/18 14:19 Respiratory Rate 20 03/10/18 14:19 Blood Pressure 130/85 03/10/18 14:19 O2 Sat by Pulse Oximetry (%) 95 03/10/18 09:00 Constitutional: Yes: No Distress, Calm Cardiovascular: Yes: Regular Rate and Rhythm Respiratory: Yes: Regular, CTA Bilaterally Gastrointestinal: Yes: Normal Bowel Sounds, Soft Musculoskeletal: Yes: WNL Extremities: Yes: Other Wound/Incision: Yes: Dressing Dry and Intact Neurological: Yes: Alert, Oriented Psychiatric: Yes: Alert, Oriented Labs: CBC, BMP 03/09/18 06:59 03/09/18 06:59 Assessment/Plan sepsis abscess of the foot swelling of the foot plan continue abx await for cx report rest as per the team wound care await for identification of bacteria will d/w podiatry team the depth of the wound
[2018-03-10] MEDS: DEXTROSE 5%-0.45% SALINE 1,000 ML IV SCH (15:43)
[2018-03-10] MEDS: VANCOMYCIN 1 GRAM (PRE-DOCKED) 1,000 MG/250 ML BAG IVPB SCH (15:44)
--- NOTE | 2018-03-10 18:44 | PN ---
Progress Note, Physician History of Present Illness: Pt still requiring pain meds and I spoke to pt at length that pain should be improving and that for now cannot go up on dosing of pain med - Current Medication List Current Medications: Active Medications Heparin Sodium (Porcine) (Heparin -) 5,000 unit SQ BID [facility] Last Admin: 03/10/18 09:51 Dose: 5,000 unit Hydromorphone HCl (Dilaudid Vial -) 0.5 mg IVPB Q6H PRN PRN Reason: PAIN LEVEL 6-10 Last Admin: 03/10/18 16:35 Dose: 0.5 mg Dextrose/Sodium Chloride (D5-1/2ns -) 1,000 mls @ 75 mls/hr IV ASDIR [facility] Last Admin: 03/10/18 15:43 Dose: 75 mls/hr Vancomycin HCl (Vancomycin (Pre-Docked)) 1,000 mg in 250 mls @ 200 mls/hr IVPB Q24H [facility]; Protocol Last Admin: 03/10/18 15:44 Dose: 200 mls/hr Piperacillin Sod/Tazobactam (Sod 3.375 gm/ Dextrose) 50 mls @ 100 mls/hr IVPB Q8H-IV [facility]; Protocol Last Admin: 03/10/18 18:14 Dose: 100 mls/hr Metoprolol Tartrate (Lopressor -) 25 mg PO BID [facility] Last Admin: 03/10/18 09:52 Dose: 25 mg Ondansetron HCl (Zofran Injection) 4 mg IVPUSH Q6H PRN PRN Reason: NAUSEA AND/OR VOMITING Oxcarbazepine (Trileptal -) 300 mg PO BID [facility] Last Admin: 03/10/18 09:52 Dose: 300 mg Ranitidine HCl (Zantac -) 150 mg PO BID [facility] Last Admin: 03/10/18 09:52 Dose: 150 mg Venlafaxine HCl (Effexor Xr -) 225 mg PO DAILY [facility] Last Admin: 03/10/18 09:51 Dose: 225 mg - Objective Vital Signs: Vital Signs Temperature 98.8 F 03/10/18 17:37 Pulse Rate 98 H 03/10/18 17:37 Respiratory Rate 18 03/10/18 17:37 Blood Pressure 138/84 03/10/18 17:37 O2 Sat by Pulse Oximetry (%) 95 03/10/18 09:00 HENT: Yes: WNL Neck: Yes: WNL, Supple Cardiovascular: Yes: WNL, Regular Rate and Rhythm Respiratory: Yes: WNL, Regular, CTA Bilaterally Gastrointestinal: Yes: WNL, Normal Bowel Sounds, Soft Extremities: Yes: Other (Rt foot w/ dressing that has some discharge) Labs: CBC, BMP 03/09/18 06:59 03/09/18 06:59 Problem List - Problems (1) Cellulitis Assessment/Plan: Abscess rt foot S/P I&D Rt foot Cont IV antibxs Will add toradol for breakthrough pain Code(s): L03.90 - CELLULITIS, UNSPECIFIED Qualifiers: Site of cellulitis: extremity Site of cellulitis of extremity: lower extremity Laterality: right Qualified Code(s): L03.115 - Cellulitis of right lower limb (2) GERD (gastroesophageal reflux disease) Assessment/Plan: Cont pepcid Code(s): K21.9 - GASTRO-ESOPHAGEAL REFLUX DISEASE WITHOUT ESOPHAGITIS (3) High blood pressure Assessment/Plan: BP stable Cont antihypertensives Code(s): I10 - ESSENTIAL (PRIMARY) HYPERTENSION Qualifiers: Hypertension type: essential hypertension Qualified Code(s): I10 - Essential (primary) hypertension (4) Bipolar 1 disorder Code(s): F31.9 - BIPOLAR DISORDER, UNSPECIFIED
--- NOTE | 2018-03-10 19:30 | PN ---
Progress Note (short form) - Note Progress Note: POD#3 days. Patient is feeling better. vss, Tmax 98.3 +dressing intact, +packing intact, +improved cellulitis, -mal odor, +improved edema, +granulation tissue noted, demarcating skin dorsally,wbc=5.1, exvj7o=5.5 , wse=585,-tender plantar foot, -erythema plantar foot, +beta hemolytic strep, normal post op foreign body Packing pulled. Wound irrigated with betadine sterile water. Iodoform packing replaced x 2 pieces. Betadine dressing applied. Will consider wound vac tomorrow after labs are done. Will follow.
[2018-03-10 22:14] LABS: BASO % 0.2 % (0-2.0); EOS % 4.3 % (0-4.5); HEMATOCRIT 30.4 % (35.4-49); HEMOGLOBIN 10.5 GM/dL (11.7-16.9); LYMPH % 15.7 % (8-40); MCH 31.7 pg (25.7-33.7); MCHC 34.6 g/dl (32.0-35.9); MEAN CELL VOLUME 91.6 fl (80-96); MEAN PLT VOLUME 8.8 fl (7.5-11.1); NEUT % 69.8 % (42.8-82.8); PLATELET COUNT 385 K/MM3 (134-434); RBC 3.32 M/mm3 (4.00-5.60); RDW 14.1 % (11.9-15.9); WHITE BLOOD COUNT 5.6 K/mm3 (4.0-10.0)
[2018-03-11] MEDS: DEXTROSE 5%-0.45% SALINE 1,000 ML IV SCH
[2018-03-11] MEDS ORDERED: DEXTROSE 5%-WATER - 50 ML IVPB ONE ×3 (01:44→16:39)
[2018-03-11] MEDS ORDERED: PIPERACILLIN/TAZOBACTAM 3.375 GM VIAL IVPB ONE ×3 (01:44→16:39)
[2018-03-11] MEDS: PIPERACILLIN/TAZOB 3.375 GM 3.375 GM in DEXTROSE 5%-WATER - 50 ML IVPB SCH ×3 (01:58→17:03)
--- NOTE | 2018-03-11 08:54 | PN ---
Progress Note, Physician History of Present Illness: patient stable wound dressing done by podiatry team - Current Medication List Current Medications: Active Medications Heparin Sodium (Porcine) (Heparin -) 5,000 unit SQ BID [facility] Last Admin: 03/10/18 21:54 Dose: 5,000 unit Hydromorphone HCl (Dilaudid Vial -) 0.5 mg IVPB Q6H PRN PRN Reason: PAIN LEVEL 6-10 Last Admin: 03/10/18 21:56 Dose: 0.5 mg Dextrose/Sodium Chloride (D5-1/2ns -) 1,000 mls @ 75 mls/hr IV ASDIR [facility] Last Admin: 03/11/18 00:00 Dose: 75 mls/hr Vancomycin HCl (Vancomycin (Pre-Docked)) 1,000 mg in 250 mls @ 200 mls/hr IVPB Q24H [facility]; Protocol Last Admin: 03/10/18 15:44 Dose: 200 mls/hr Piperacillin Sod/Tazobactam (Sod 3.375 gm/ Dextrose) 50 mls @ 100 mls/hr IVPB Q8H-IV [facility]; Protocol Last Admin: 03/11/18 01:58 Dose: 100 mls/hr Ketorolac Tromethamine (Toradol Injection -) 15 mg IVPUSH Q6H PRN PRN Reason: breakthrough pain Stop: 03/15/18 23:58 Metoprolol Tartrate (Lopressor -) 25 mg PO BID [facility] Last Admin: 03/10/18 21:55 Dose: 25 mg Ondansetron HCl (Zofran Injection) 4 mg IVPUSH Q6H PRN PRN Reason: NAUSEA AND/OR VOMITING Oxcarbazepine (Trileptal -) 300 mg PO BID [facility] Last Admin: 03/10/18 21:55 Dose: 300 mg Ranitidine HCl (Zantac -) 150 mg PO BID [facility] Last Admin: 03/10/18 21:55 Dose: 150 mg Venlafaxine HCl (Effexor Xr -) 225 mg PO DAILY [facility] Last Admin: 03/10/18 09:51 Dose: 225 mg - Objective Vital Signs: Vital Signs Temperature 98.7 F 03/11/18 06:00 Pulse Rate 84 03/11/18 06:00 Respiratory Rate 18 03/11/18 06:00 Blood Pressure 145/95 03/11/18 06:00 O2 Sat by Pulse Oximetry (%) 94 L 03/10/18 21:00 Constitutional: Yes: No Distress, Calm, Obese Cardiovascular: Yes: Regular Rate and Rhythm Respiratory: Yes: Regular, CTA Bilaterally Gastrointestinal: Yes: Normal Bowel Sounds, Soft Musculoskeletal: Yes: WNL Extremities: Yes: WNL Neurological: Yes: Alert, Oriented Psychiatric: Yes: Alert, Oriented Labs: CBC, BMP 03/10/18 21:25 03/09/18 06:59 Assessment/Plan sepsis abscess of the foot swelling of the foot plan continue abx awaiting for cx report rest as per the team wound care await for identification of bacteria will d/w podiatry team the depth of the wound
[2018-03-11] MEDS ORDERED: PT OWN MED DRAWER 7, Y5N ONE ×4 (08:57→18:27)
[2018-03-11] MEDS: RANITIDINE HCL 150 MG TABLET (FP) PO SCH ×2 (09:15→21:34)
[2018-03-11] MEDS: HEPARIN NA (PORCINE) 5,000 UNITS/ML 1ML VIAL SQ SCH ×2 (09:15→21:34)
[2018-03-11] MEDS: METOPROLOL TARTRATE 25 MG TABLET (FP) PO SCH ×2 (09:15→21:34)
[2018-03-11] MEDS: HYDROmorphone HCl 2 MG/ML VIAL IVPB PRN ×3 (09:42→21:32)
[2018-03-11] MEDS: VENLAFAXINE HCL 75 MG E.R. CAPSULES (FP) PO SCH (10:03)
[2018-03-11] MEDS: OXcarbazepine 300 MG TABLET (UD) PO SCH ×2 (10:03→21:36)
--- NOTE | 2018-03-11 15:35 | PN ---
Progress Note (short form) - Note Progress Note: POD#4 days. Patient is feeling better. vss, Tmax 98.4 +dressing intact, +packing intact, +improved cellulitis, -mal odor, +improved edema, +granulation tissue noted, demarcating skin dorsally,wbc=5.6, dboe9v=0.5 , ndc=234,-tender plantar foot, -erythema plantar foot, +beta hemolytic strep final, normal post op foreign body Packing pulled. Wound irrigated with betadine sterile water. Wound vac ordered today. Betadine dressing applied.
[2018-03-11] MEDS: VANCOMYCIN 1 GRAM (PRE-DOCKED) 1,000 MG/250 ML BAG IVPB SCH (15:36)
--- NOTE | 2018-03-11 18:37 | PN ---
Progress Note, Physician History of Present Illness: Pt still w/ pain - Current Medication List Current Medications: Active Medications Heparin Sodium (Porcine) (Heparin -) 5,000 unit SQ BID [facility] Last Admin: 03/11/18 09:15 Dose: 5,000 unit Hydromorphone HCl (Dilaudid Vial -) 0.5 mg IVPB Q6H PRN PRN Reason: PAIN LEVEL 6-10 Last Admin: 03/11/18 15:35 Dose: 0.5 mg Dextrose/Sodium Chloride (D5-1/2ns -) 1,000 mls @ 75 mls/hr IV ASDIR [facility] Last Admin: 03/11/18 00:00 Dose: 75 mls/hr Vancomycin HCl (Vancomycin (Pre-Docked)) 1,000 mg in 250 mls @ 200 mls/hr IVPB Q24H [facility]; Protocol Last Admin: 03/11/18 15:36 Dose: 200 mls/hr Piperacillin Sod/Tazobactam (Sod 3.375 gm/ Dextrose) 50 mls @ 100 mls/hr IVPB Q8H-IV [facility]; Protocol Last Admin: 03/11/18 17:03 Dose: 100 mls/hr Ketorolac Tromethamine (Toradol Injection -) 15 mg IVPUSH Q6H PRN PRN Reason: breakthrough pain Stop: 03/15/18 23:58 Metoprolol Tartrate (Lopressor -) 25 mg PO BID [facility] Last Admin: 03/11/18 09:15 Dose: 25 mg Ondansetron HCl (Zofran Injection) 4 mg IVPUSH Q6H PRN PRN Reason: NAUSEA AND/OR VOMITING Oxcarbazepine (Trileptal -) 300 mg PO BID [facility] Last Admin: 03/11/18 10:03 Dose: 300 mg Ranitidine HCl (Zantac -) 150 mg PO BID [facility] Last Admin: 03/11/18 09:15 Dose: 150 mg Venlafaxine HCl (Effexor Xr -) 225 mg PO DAILY [facility] Last Admin: 03/11/18 10:03 Dose: 225 mg - Objective Vital Signs: Vital Signs Temperature 97.7 F 03/11/18 17:37 Pulse Rate 76 03/11/18 17:37 Respiratory Rate 18 03/11/18 17:37 Blood Pressure 141/92 03/11/18 17:37 O2 Sat by Pulse Oximetry (%) 100 03/11/18 09:00 Neck: Yes: WNL, Supple Cardiovascular: Yes: WNL, Regular Rate and Rhythm Respiratory: Yes: WNL, Regular, CTA Bilaterally Gastrointestinal: Yes: WNL, Normal Bowel Sounds, Soft Extremities: Yes: Other (RT foot w/ wound vac) Labs: CBC, BMP 03/10/18 21:25 03/09/18 06:59 Problem List - Problems (1) Cellulitis Assessment/Plan: Abscess rt foot S/P I&D Rt foot Cont IV antibxs Spoke to pt about tapering dilaudid Cont wound vac Code(s): L03.90 - CELLULITIS, UNSPECIFIED Qualifiers: Site of cellulitis: extremity Site of cellulitis of extremity: lower extremity Laterality: right Qualified Code(s): L03.115 - Cellulitis of right lower limb (2) GERD (gastroesophageal reflux disease) Assessment/Plan: Cont pepcid Code(s): K21.9 - GASTRO-ESOPHAGEAL REFLUX DISEASE WITHOUT ESOPHAGITIS (3) High blood pressure Assessment/Plan: BP stable Cont antihypertensives Code(s): I10 - ESSENTIAL (PRIMARY) HYPERTENSION Qualifiers: Hypertension type: essential hypertension Qualified Code(s): I10 - Essential (primary) hypertension (4) Bipolar 1 disorder Code(s): F31.9 - BIPOLAR DISORDER, UNSPECIFIED
[2018-03-12] MEDS: DEXTROSE 5%-0.45% SALINE 1,000 ML IV SCH (00:32)
[2018-03-12] MEDS ORDERED: DEXTROSE 5%-WATER - 50 ML IVPB ONE ×3 (01:15→17:06)
[2018-03-12] MEDS ORDERED: PIPERACILLIN/TAZOBACTAM 3.375 GM VIAL IVPB ONE ×3 (01:15→17:06)
[2018-03-12] MEDS: PIPERACILLIN/TAZOB 3.375 GM 3.375 GM in DEXTROSE 5%-WATER - 50 ML IVPB SCH ×3 (01:26→17:11)
[2018-03-12] MEDS: KETOROLAC TROMETHAMINE 15 MG/ML VIAL IVPUSH PRN ×2 (02:10→15:43)
[2018-03-12 07:16] LABS: EOS % 5.1 % (0-4.5); HEMATOCRIT 33.6 % (35.4-49); HEMOGLOBIN 11.2 GM/dL (11.7-16.9); LYMPH % 21.2 % (8-40); MCH 30.6 pg (25.7-33.7); MCHC 33.4 g/dl (32.0-35.9); MEAN CELL VOLUME 91.5 fl (80-96); MEAN PLT VOLUME 8.2 fl (7.5-11.1); MONO % 12.2 % (3.8-10.2); NEUT % 60.5 % (42.8-82.8); PLATELET COUNT 438 K/MM3 (134-434); RBC 3.67 M/mm3 (4.00-5.60); RDW 14.3 % (11.9-15.9); WHITE BLOOD COUNT 7.6 K/mm3 (4.0-10.0)
--- NOTE | 2018-03-12 07:48 | PN ---
Progress Note (short form) - Note Progress Note: POD#5 days. Patient is feeling better. vss, Tmax 98.4 +dressing intact, +packing intact, +improved cellulitis, -mal odor, +improved edema, +granulation tissue noted, demarcating skin dorsally,wbc=5.6, mumf8c=6.5 , aqe=907,-tender plantar foot, -erythema plantar foot, +beta hemolytic strep final, normal post op foreign body Packing pulled. Wound irrigated with betadine sterile water. Wound vac ordered today. Betadine dressing applied.
[2018-03-12 08:26] LABS: ALBUMIN 2.9 g/dl (3.4-5.0); ALK PHOS 101 U/L (45-117); ANION GAP 7 MMOL/L (8-16); BILIRUBIN,TOTAL 0.2 mg/dL (0.2-1); BLOOD UREA NITROGEN 11 mg/dL (7-18); CALCIUM 8.5 mg/dL (8.5-10.1); CHLORIDE 100 mmol/L (98-107); CO2 29 mmol/L (21-32); CREATININE 0.9 mg/dL (0.55-1.3); GLUCOSE,RANDOM 52 mg/dL (74-106); POTASSIUM 4.2 mmol/L (3.5-5.1); SGOT/AST 27 U/L (15-37); SGPT/ALT 31 U/L (13-61); SODIUM 136 mmol/L (136-145); TOT PROT 7.2 g/dl (6.4-8.2)
[2018-03-12] MEDS: VENLAFAXINE HCL 75 MG E.R. CAPSULES (FP) PO SCH (09:25)
[2018-03-12] MEDS: METOPROLOL TARTRATE 25 MG TABLET (FP) PO SCH ×2 (09:27→21:28)
[2018-03-12] MEDS: OXcarbazepine 300 MG TABLET (UD) PO SCH ×2 (09:27→21:28)
[2018-03-12] MEDS: RANITIDINE HCL 150 MG TABLET (FP) PO SCH ×2 (09:27→21:28)
[2018-03-12] MEDS: HEPARIN NA (PORCINE) 5,000 UNITS/ML 1ML VIAL SQ SCH ×2 (09:28→21:28)
--- NOTE | 2018-03-12 10:31 | PN ---
Progress Note, Physician History of Present Illness: patient stable no issues patients c/s are still pending - Current Medication List Current Medications: Active Medications Acetaminophen (Tylenol -) 650 mg PO Q6H PRN PRN Reason: PAIN LEVEL 6-10 Heparin Sodium (Porcine) (Heparin -) 5,000 unit SQ BID [facility] Last Admin: 03/12/18 09:28 Dose: 5,000 unit Vancomycin HCl (Vancomycin (Pre-Docked)) 1,000 mg in 250 mls @ 200 mls/hr IVPB Q24H [facility]; Protocol Last Admin: 03/11/18 15:36 Dose: 200 mls/hr Piperacillin Sod/Tazobactam (Sod 3.375 gm/ Dextrose) 50 mls @ 100 mls/hr IVPB Q8H-IV [facility]; Protocol Last Admin: 03/12/18 09:22 Dose: 100 mls/hr Ketorolac Tromethamine (Toradol Injection -) 15 mg IVPUSH Q6H PRN PRN Reason: breakthrough pain Stop: 03/15/18 23:58 Last Admin: 03/12/18 02:10 Dose: 15 mg Metoprolol Tartrate (Lopressor -) 25 mg PO BID [facility] Last Admin: 03/12/18 09:27 Dose: 25 mg Ondansetron HCl (Zofran Injection) 4 mg IVPUSH Q6H PRN PRN Reason: NAUSEA AND/OR VOMITING Oxcarbazepine (Trileptal -) 300 mg PO BID [facility] Last Admin: 03/12/18 09:27 Dose: 300 mg Oxycodone HCl (Roxicodone -) 10 mg PO Q6H PRN PRN Reason: PAIN LEVEL 6-10 Ranitidine HCl (Zantac -) 150 mg PO BID [facility] Last Admin: 03/12/18 09:27 Dose: 150 mg Venlafaxine HCl (Effexor Xr -) 225 mg PO DAILY [facility] Last Admin: 03/12/18 09:25 Dose: 225 mg - Objective Vital Signs: Vital Signs Temperature 97.9 F 03/12/18 05:50 Pulse Rate 68 03/12/18 05:50 Respiratory Rate 18 03/12/18 05:50 Blood Pressure 138/93 03/12/18 05:50 O2 Sat by Pulse Oximetry (%) 100 03/11/18 09:00 Constitutional: Yes: No Distress, Calm, Obese Cardiovascular: Yes: Regular Rate and Rhythm Respiratory: Yes: Regular, CTA Bilaterally Gastrointestinal: Yes: Normal Bowel Sounds, Soft Musculoskeletal: Yes: WNL Extremities: Yes: WNL Wound/Incision: Yes: Other (wound vac in place) Neurological: Yes: Alert, Oriented Psychiatric: Yes: Alert, Oriented Labs: CBC, BMP 03/12/18 06:00 03/12/18 06:00 Assessment/Plan sepsis abscess of the foot swelling of the foot plan continue abx awaiting for cx report for two organism rest as per the team wound care await for identification of bacteria once we have the results then will decide about oral abx
[2018-03-12 11:47] LABS: ACANTHOCYTES 0; ANISOCYTOSIS 0; HELMET CELLS 0; HOWELL-JOLLY BODIES 0; MACROCYTOSIS 0; OVALOCYTE 0; PLATELET ESTIMATE NORMAL; ROULEAU 0; SICKELED CELLS 0; TARGET CELLS 0; TEAR DROP CELLS 0; TOXIC GRANULATION 0
[2018-03-12] MEDS: VANCOMYCIN 1 GRAM (PRE-DOCKED) 1,000 MG/250 ML BAG IVPB SCH (15:29)
[2018-03-12] MEDS ORDERED: PT OWN MED DRAWER 7, Y5N ONE ×2 (16:57→20:36)
--- NOTE | 2018-03-12 23:34 | PN ---
Progress Note, Physician - Current Medication List Current Medications: Active Medications Acetaminophen (Tylenol -) 650 mg PO Q6H PRN PRN Reason: PAIN LEVEL 6-10 Heparin Sodium (Porcine) (Heparin -) 5,000 unit SQ BID [facility] Last Admin: 03/12/18 21:28 Dose: 5,000 unit Vancomycin HCl (Vancomycin (Pre-Docked)) 1,000 mg in 250 mls @ 200 mls/hr IVPB Q24H [facility]; Protocol Last Admin: 03/12/18 15:29 Dose: 200 mls/hr Piperacillin Sod/Tazobactam (Sod 3.375 gm/ Dextrose) 50 mls @ 100 mls/hr IVPB Q8H-IV [facility]; Protocol Last Admin: 03/12/18 17:11 Dose: 100 mls/hr Ketorolac Tromethamine (Toradol Injection -) 15 mg IVPUSH Q6H PRN PRN Reason: breakthrough pain Stop: 03/15/18 23:58 Last Admin: 03/12/18 15:43 Dose: 15 mg Metoprolol Tartrate (Lopressor -) 25 mg PO BID [facility] Last Admin: 03/12/18 21:28 Dose: 25 mg Ondansetron HCl (Zofran Injection) 4 mg IVPUSH Q6H PRN PRN Reason: NAUSEA AND/OR VOMITING Oxcarbazepine (Trileptal -) 300 mg PO BID [facility] Last Admin: 03/12/18 21:28 Dose: 300 mg Oxycodone HCl (Roxicodone -) 10 mg PO Q6H PRN PRN Reason: PAIN LEVEL 6-10 Ranitidine HCl (Zantac -) 150 mg PO BID [facility] Last Admin: 03/12/18 21:28 Dose: 150 mg Venlafaxine HCl (Effexor Xr -) 225 mg PO DAILY [facility] Last Admin: 03/12/18 09:25 Dose: 225 mg - Objective Vital Signs: Vital Signs Temperature 98.4 F 03/12/18 22:00 Pulse Rate 82 03/12/18 22:00 Respiratory Rate 18 03/12/18 22:00 Blood Pressure 143/86 03/12/18 22:00 O2 Sat by Pulse Oximetry (%) 100 03/11/18 09:00 Labs: CBC, BMP 03/12/18 06:00 03/12/18 06:00 Problem List - Problems (1) Cellulitis Code(s): L03.90 - CELLULITIS, UNSPECIFIED Qualifiers: Site of cellulitis: extremity Site of cellulitis of extremity: lower extremity Laterality: right Qualified Code(s): L03.115 - Cellulitis of right lower limb (2) GERD (gastroesophageal reflux disease) Code(s): K21.9 - GASTRO-ESOPHAGEAL REFLUX DISEASE WITHOUT ESOPHAGITIS (3) High blood pressure Code(s): I10 - ESSENTIAL (PRIMARY) HYPERTENSION Qualifiers: Hypertension type: essential hypertension Qualified Code(s): I10 - Essential (primary) hypertension (4) Bipolar 1 disorder Code(s): F31.9 - BIPOLAR DISORDER, UNSPECIFIED
[2018-03-13] MEDS ORDERED: PIPERACILLIN/TAZOBACTAM 3.375 GM VIAL IVPB ONE ×3 (01:18→16:28)
[2018-03-13] MEDS ORDERED: DEXTROSE 5%-WATER - 50 ML IVPB ONE ×3 (01:18→16:28)
[2018-03-13] MEDS: PIPERACILLIN/TAZOB 3.375 GM 3.375 GM in DEXTROSE 5%-WATER - 50 ML IVPB SCH ×3 (01:41→17:00)
[2018-03-13] MEDS: KETOROLAC TROMETHAMINE 15 MG/ML VIAL IVPUSH PRN ×3 (01:42→21:20)
[2018-03-13] MEDS ORDERED: INSULIN (NOVOLOG) ASPART 100 UNITS/ML 10ML VIAL ONE (06:42)
[2018-03-13] MEDS ORDERED: PT OWN MED DRAWER 7, Y5N ONE ×4 (09:07→20:50)
[2018-03-13] MEDS: OXcarbazepine 300 MG TABLET (UD) PO SCH ×2 (09:56→20:59)
[2018-03-13] MEDS: VENLAFAXINE HCL 75 MG E.R. CAPSULES (FP) PO SCH (09:56)
[2018-03-13] MEDS: HEPARIN NA (PORCINE) 5,000 UNITS/ML 1ML VIAL SQ SCH ×2 (09:57→21:20)
[2018-03-13] MEDS: RANITIDINE HCL 150 MG TABLET (FP) PO SCH ×2 (09:58→20:59)
[2018-03-13] MEDS: METOPROLOL TARTRATE 25 MG TABLET (FP) PO SCH ×2 (09:59→20:59)
--- NOTE | 2018-03-13 10:14 | PN ---
Progress Note, Physician History of Present Illness: patient stable doing well wound vac in place - Current Medication List Current Medications: Active Medications Acetaminophen (Tylenol -) 650 mg PO Q6H PRN PRN Reason: PAIN LEVEL 6-10 Heparin Sodium (Porcine) (Heparin -) 5,000 unit SQ BID [facility] Last Admin: 03/13/18 09:57 Dose: 5,000 unit Vancomycin HCl (Vancomycin (Pre-Docked)) 1,000 mg in 250 mls @ 200 mls/hr IVPB Q24H [facility]; Protocol Last Admin: 03/12/18 15:29 Dose: 200 mls/hr Piperacillin Sod/Tazobactam (Sod 3.375 gm/ Dextrose) 50 mls @ 100 mls/hr IVPB Q8H-IV [facility]; Protocol Last Admin: 03/13/18 09:57 Dose: 100 mls/hr Ketorolac Tromethamine (Toradol Injection -) 15 mg IVPUSH Q6H PRN PRN Reason: breakthrough pain Stop: 03/15/18 23:58 Last Admin: 03/13/18 01:42 Dose: 15 mg Metoprolol Tartrate (Lopressor -) 25 mg PO BID [facility] Last Admin: 03/13/18 09:59 Dose: 25 mg Ondansetron HCl (Zofran Injection) 4 mg IVPUSH Q6H PRN PRN Reason: NAUSEA AND/OR VOMITING Oxcarbazepine (Trileptal -) 300 mg PO BID [facility] Last Admin: 03/13/18 09:56 Dose: 300 mg Oxycodone HCl (Roxicodone -) 10 mg PO Q6H PRN PRN Reason: PAIN LEVEL 6-10 Ranitidine HCl (Zantac -) 150 mg PO BID [facility] Last Admin: 03/13/18 09:58 Dose: 150 mg Venlafaxine HCl (Effexor Xr -) 225 mg PO DAILY [facility] Last Admin: 03/13/18 09:56 Dose: 225 mg - Objective Vital Signs: Vital Signs Temperature 98 F 03/13/18 06:00 Pulse Rate 64 03/13/18 06:00 Respiratory Rate 18 03/13/18 06:00 Blood Pressure 142/90 03/13/18 06:00 O2 Sat by Pulse Oximetry (%) 100 03/11/18 09:00 Constitutional: Yes: No Distress, Calm Cardiovascular: Yes: Regular Rate and Rhythm Respiratory: Yes: Regular, CTA Bilaterally Gastrointestinal: Yes: Normal Bowel Sounds, Soft Musculoskeletal: Yes: WNL Extremities: Yes: Other Wound/Incision: Yes: Other (wound vac in place) Psychiatric: Yes: Alert, Oriented Labs: CBC, BMP 03/12/18 06:00 03/12/18 06:00 Assessment/Plan sepsis abscess of the foot swelling of the foot plan continue abx patient will need abx for 3 weeks d/w with podiatry very near bone foreign body still in the wound
--- NOTE | 2018-03-13 10:37 | PN ---
Progress Note (short form) - Note Progress Note: POD#6 days. Patient is feeling better. vss, Tmax 98.[address] minimal drainage, greatly improved edema and cellulitis, normal post op foreign body Vac in place. Discussed with ID. Needs IVABX. Follow in wound care. Will follow till dc. Vac at home Mon, Sat, Saturday changes. If can be dc from hospital with vac on would be beneficial to care. Discussed with patient the foreign body issue. Will leave in place for now. If problems occur in future will consider excision. Does not correlate as nidus of infection.
[2018-03-13 13:40] VITALS: BMI 32.4
[2018-03-13] MEDS: VANCOMYCIN 1 GRAM (PRE-DOCKED) 1,000 MG/250 ML BAG IVPB SCH (14:59)
--- NOTE | 2018-03-13 21:04 | PN ---
Progress Note, Physician - Current Medication List Current Medications: Active Medications Acetaminophen (Tylenol -) 650 mg PO Q6H PRN PRN Reason: PAIN LEVEL 6-10 Heparin Sodium (Porcine) (Heparin -) 5,000 unit SQ BID [facility] Last Admin: 03/13/18 09:57 Dose: 5,000 unit Vancomycin HCl (Vancomycin (Pre-Docked)) 1,000 mg in 250 mls @ 200 mls/hr IVPB Q24H [facility]; Protocol Last Admin: 03/13/18 14:59 Dose: 200 mls/hr Piperacillin Sod/Tazobactam (Sod 3.375 gm/ Dextrose) 50 mls @ 100 mls/hr IVPB Q8H-IV [facility]; Protocol Last Admin: 03/13/18 17:00 Dose: 100 mls/hr Ketorolac Tromethamine (Toradol Injection -) 15 mg IVPUSH Q6H PRN PRN Reason: breakthrough pain Stop: 03/15/18 23:58 Last Admin: 03/13/18 15:46 Dose: 15 mg Metoprolol Tartrate (Lopressor -) 25 mg PO BID [facility] Last Admin: 03/13/18 20:59 Dose: 25 mg Ondansetron HCl (Zofran Injection) 4 mg IVPUSH Q6H PRN PRN Reason: NAUSEA AND/OR VOMITING Oxcarbazepine (Trileptal -) 300 mg PO BID [facility] Last Admin: 03/13/18 20:59 Dose: 300 mg Oxycodone HCl (Roxicodone -) 10 mg PO Q6H PRN PRN Reason: PAIN LEVEL 6-10 Ranitidine HCl (Zantac -) 150 mg PO BID [facility] Last Admin: 03/13/18 20:59 Dose: 150 mg Venlafaxine HCl (Effexor Xr -) 225 mg PO DAILY [facility] Last Admin: 03/13/18 09:56 Dose: 225 mg - Objective Vital Signs: Vital Signs Temperature 98.1 F 03/13/18 14:39 Pulse Rate 84 03/13/18 14:39 Respiratory Rate 18 03/13/18 14:39 Blood Pressure 153/79 03/13/18 14:39 O2 Sat by Pulse Oximetry (%) 100 03/11/18 09:00 Labs: CBC, BMP 03/12/18 06:00 03/12/18 06:00 Problem List - Problems (1) Cellulitis Code(s): L03.90 - CELLULITIS, UNSPECIFIED Qualifiers: Site of cellulitis: extremity Site of cellulitis of extremity: lower extremity Laterality: right Qualified Code(s): L03.115 - Cellulitis of right lower limb (2) GERD (gastroesophageal reflux disease) Code(s): K21.9 - GASTRO-ESOPHAGEAL REFLUX DISEASE WITHOUT ESOPHAGITIS (3) High blood pressure Code(s): I10 - ESSENTIAL (PRIMARY) HYPERTENSION Qualifiers: Hypertension type: essential hypertension Qualified Code(s): I10 - Essential (primary) hypertension (4) Bipolar 1 disorder Code(s): F31.9 - BIPOLAR DISORDER, UNSPECIFIED
[2018-03-14] MEDS ORDERED: DEXTROSE 5%-WATER - 50 ML IVPB ONE ×2 (01:11→09:14)
[2018-03-14] MEDS ORDERED: PIPERACILLIN/TAZOBACTAM 3.375 GM VIAL IVPB ONE ×2 (01:11→09:14)
[2018-03-14] MEDS: PIPERACILLIN/TAZOB 3.375 GM 3.375 GM in DEXTROSE 5%-WATER - 50 ML IVPB SCH ×2 (02:31→09:21)
[2018-03-14] MEDS: ACETAMINOPHEN 325 MG TABLET (FP) PO PRN ×3 (02:50→20:44)
[2018-03-14] MEDS: oxyCODONE HCL 5 MG TABLET PO PRN ×4 (02:50→20:44)
[2018-03-14] MEDS: VENLAFAXINE HCL 75 MG E.R. CAPSULES (FP) PO SCH (09:21)
[2018-03-14] MEDS: HEPARIN NA (PORCINE) 5,000 UNITS/ML 1ML VIAL SQ SCH ×2 (09:21→21:06)
[2018-03-14] MEDS: OXcarbazepine 300 MG TABLET (UD) PO SCH ×2 (09:22→21:05)
[2018-03-14] MEDS: METOPROLOL TARTRATE 25 MG TABLET (FP) PO SCH ×2 (09:22→21:05)
[2018-03-14] MEDS: RANITIDINE HCL 150 MG TABLET (FP) PO SCH ×2 (09:22→21:05)
--- NOTE | 2018-03-14 10:06 | PN ---
Progress Note, Physician History of Present Illness: patient stable no issues - Current Medication List Current Medications: Active Medications Acetaminophen (Tylenol -) 650 mg PO Q6H PRN PRN Reason: PAIN LEVEL 6-10 Last Admin: 03/14/18 02:50 Dose: 650 mg Heparin Sodium (Porcine) (Heparin -) 5,000 unit SQ BID [facility] Last Admin: 03/14/18 09:21 Dose: 5,000 unit Vancomycin HCl (Vancomycin (Pre-Docked)) 1,000 mg in 250 mls @ 200 mls/hr IVPB Q24H [facility]; Protocol Last Admin: 03/13/18 14:59 Dose: 200 mls/hr Piperacillin Sod/Tazobactam (Sod 3.375 gm/ Dextrose) 50 mls @ 100 mls/hr IVPB Q8H-IV [facility]; Protocol Last Admin: 03/14/18 09:21 Dose: 100 mls/hr Ketorolac Tromethamine (Toradol Injection -) 15 mg IVPUSH Q6H PRN PRN Reason: breakthrough pain Stop: 03/15/18 23:58 Last Admin: 03/13/18 21:20 Dose: 15 mg Metoprolol Tartrate (Lopressor -) 25 mg PO BID [facility] Last Admin: 03/14/18 09:22 Dose: 25 mg Ondansetron HCl (Zofran Injection) 4 mg IVPUSH Q6H PRN PRN Reason: NAUSEA AND/OR VOMITING Oxcarbazepine (Trileptal -) 300 mg PO BID [facility] Last Admin: 03/14/18 09:22 Dose: 300 mg Oxycodone HCl (Roxicodone -) 10 mg PO Q6H PRN PRN Reason: PAIN LEVEL 6-10 Last Admin: 03/14/18 08:42 Dose: 10 mg Ranitidine HCl (Zantac -) 150 mg PO BID [facility] Last Admin: 03/14/18 09:22 Dose: 150 mg Venlafaxine HCl (Effexor Xr -) 225 mg PO DAILY [facility] Last Admin: 03/14/18 09:21 Dose: 225 mg - Objective Vital Signs: Vital Signs Temperature 98 F 03/14/18 09:21 Pulse Rate 84 03/14/18 09:21 Respiratory Rate 18 03/14/18 09:21 Blood Pressure 149/105 H 03/14/18 09:21 O2 Sat by Pulse Oximetry (%) 100 03/11/18 09:00 Constitutional: Yes: No Distress, Calm Cardiovascular: Yes: Regular Rate and Rhythm Respiratory: Yes: Regular, CTA Bilaterally Gastrointestinal: Yes: Normal Bowel Sounds, Soft Musculoskeletal: Yes: WNL Extremities: Yes: Other Wound/Incision: Yes: Other (wound vac in place) Psychiatric: Yes: Alert, Oriented Labs: CBC, BMP 03/12/18 06:00 03/12/18 06:00 Assessment/Plan sepsis abscess of the foot swelling of the foot plan continue abx will change abx to ceftriaxone 2gm daily will need it for 3 weeks rest as per the team
[2018-03-14] MEDS ORDERED: DEXTROSE 5%-WATER 100 ML IVPB ONE ×2 (11:15→11:20)
[2018-03-14] MEDS: CEFTRIAXONE 2 GM in DEXTROSE 5%-WATER 100 ML IVPB SCH (11:22)
[2018-03-14] MEDS: VANCOMYCIN 1 GRAM (PRE-DOCKED) 1,000 MG/250 ML BAG IVPB SCH (15:45)
--- NOTE | 2018-03-14 17:12 | PN ---
Progress Note (short form) - Note Progress Note: POD#7 days. Patient is feeling better. vss, Tmax 98.[address] minimal drainage, greatly improved edema and cellulitis, normal post op foreign body Vac in place. Discussed with ID. Needs IVABX. Follow in wound care. Will follow till dc. Vac at home Mon, Sat, Saturday changes. Awaiting PICC line. May go home from podiatry standpoint.
--- NOTE | 2018-03-14 19:49 | PN ---
Progress Note, Physician - Current Medication List Current Medications: Active Medications Acetaminophen (Tylenol -) 650 mg PO Q6H PRN PRN Reason: PAIN LEVEL 6-10 Last Admin: 03/14/18 14:44 Dose: 650 mg Heparin Sodium (Porcine) (Heparin -) 5,000 unit SQ BID [facility] Last Admin: 03/14/18 09:21 Dose: 5,000 unit Vancomycin HCl (Vancomycin (Pre-Docked)) 1,000 mg in 250 mls @ 200 mls/hr IVPB Q24H [facility]; Protocol Last Admin: 03/14/18 15:45 Dose: 200 mls/hr Ceftriaxone Sodium 2 gm/ (Dextrose) 100 mls @ 200 mls/hr IVPB DAILY [facility]; Protocol Last Admin: 03/14/18 11:22 Dose: 200 mls/hr Ketorolac Tromethamine (Toradol Injection -) 15 mg IVPUSH Q6H PRN PRN Reason: breakthrough pain Stop: 03/15/18 23:58 Last Admin: 03/13/18 21:20 Dose: 15 mg Metoprolol Tartrate (Lopressor -) 25 mg PO BID [facility] Last Admin: 03/14/18 09:22 Dose: 25 mg Ondansetron HCl (Zofran Injection) 4 mg IVPUSH Q6H PRN PRN Reason: NAUSEA AND/OR VOMITING Oxcarbazepine (Trileptal -) 300 mg PO BID [facility] Last Admin: 03/14/18 09:22 Dose: 300 mg Oxycodone HCl (Roxicodone -) 10 mg PO Q6H PRN PRN Reason: PAIN LEVEL 6-10 Last Admin: 03/14/18 14:45 Dose: 10 mg Ranitidine HCl (Zantac -) 150 mg PO BID [facility] Last Admin: 03/14/18 09:22 Dose: 150 mg Venlafaxine HCl (Effexor Xr -) 225 mg PO DAILY [facility] Last Admin: 03/14/18 09:21 Dose: 225 mg - Objective Vital Signs: Vital Signs Temperature 98.0 F 03/14/18 18:00 Pulse Rate 71 03/14/18 18:00 Respiratory Rate 20 03/14/18 18:00 Blood Pressure 158/103 H 03/14/18 18:00 O2 Sat by Pulse Oximetry (%) 100 03/11/18 09:00 Labs: CBC, BMP 03/12/18 06:00 03/12/18 06:00 Problem List - Problems (1) Cellulitis Code(s): L03.90 - CELLULITIS, UNSPECIFIED Qualifiers: Site of cellulitis: extremity Site of cellulitis of extremity: lower extremity Laterality: right Qualified Code(s): L03.115 - Cellulitis of right lower limb (2) GERD (gastroesophageal reflux disease) Code(s): K21.9 - GASTRO-ESOPHAGEAL REFLUX DISEASE WITHOUT ESOPHAGITIS (3) High blood pressure Code(s): I10 - ESSENTIAL (PRIMARY) HYPERTENSION Qualifiers: Hypertension type: essential hypertension Qualified Code(s): I10 - Essential (primary) hypertension (4) Bipolar 1 disorder Code(s): F31.9 - BIPOLAR DISORDER, UNSPECIFIED
[2018-03-14] MEDS ORDERED: PT OWN MED DRAWER 7, Y5N ONE (20:46)
[2018-03-15] MEDS: KETOROLAC TROMETHAMINE 15 MG/ML VIAL IVPUSH PRN ×2 (03:13→20:47)
[2018-03-15] MEDS ORDERED: PT OWN MED DRAWER 7, Y5N ONE ×2 (10:03→21:09)
[2018-03-15] MEDS ORDERED: DEXTROSE 5%-WATER 100 ML IVPB ONE (10:04)
[2018-03-15] MEDS: CEFTRIAXONE 2 GM in DEXTROSE 5%-WATER 100 ML IVPB SCH (10:12)
[2018-03-15] MEDS: HEPARIN NA (PORCINE) 5,000 UNITS/ML 1ML VIAL SQ SCH ×2 (10:13→22:14)
[2018-03-15] MEDS: METOPROLOL TARTRATE 25 MG TABLET (FP) PO SCH ×2 (10:13→22:14)
[2018-03-15] MEDS: RANITIDINE HCL 150 MG TABLET (FP) PO SCH ×2 (10:13→22:14)
[2018-03-15] MEDS: VENLAFAXINE HCL 75 MG E.R. CAPSULES (FP) PO SCH (10:14)
[2018-03-15] MEDS: OXcarbazepine 300 MG TABLET (UD) PO SCH ×2 (10:15→22:14)
--- NOTE | 2018-03-15 13:43 | PN ---
Progress Note, Physician History of Present Illness: stable swelling of the leg has improved - Current Medication List Current Medications: Active Medications Acetaminophen (Tylenol -) 650 mg PO Q6H PRN PRN Reason: PAIN LEVEL 6-10 Last Admin: 03/14/18 20:44 Dose: 650 mg Heparin Sodium (Porcine) (Heparin -) 5,000 unit SQ BID [facility] Last Admin: 03/15/18 10:13 Dose: 5,000 unit Vancomycin HCl (Vancomycin (Pre-Docked)) 1,000 mg in 250 mls @ 200 mls/hr IVPB Q24H [facility]; Protocol Last Admin: 03/14/18 15:45 Dose: 200 mls/hr Ceftriaxone Sodium 2 gm/ (Dextrose) 100 mls @ 200 mls/hr IVPB DAILY [facility]; Protocol Last Admin: 03/15/18 10:12 Dose: 200 mls/hr Ketorolac Tromethamine (Toradol Injection -) 15 mg IVPUSH Q6H PRN PRN Reason: breakthrough pain Stop: 03/15/18 23:58 Last Admin: 03/15/18 03:13 Dose: 15 mg Metoprolol Tartrate (Lopressor -) 25 mg PO BID [facility] Last Admin: 03/15/18 10:13 Dose: 25 mg Ondansetron HCl (Zofran Injection) 4 mg IVPUSH Q6H PRN PRN Reason: NAUSEA AND/OR VOMITING Oxcarbazepine (Trileptal -) 300 mg PO BID [facility] Last Admin: 03/15/18 10:15 Dose: 300 mg Oxycodone HCl (Roxicodone -) 10 mg PO Q6H PRN PRN Reason: PAIN LEVEL 6-10 Last Admin: 03/14/18 20:44 Dose: 10 mg Ranitidine HCl (Zantac -) 150 mg PO BID [facility] Last Admin: 03/15/18 10:13 Dose: 150 mg Venlafaxine HCl (Effexor Xr -) 225 mg PO DAILY [facility] Last Admin: 03/15/18 10:14 Dose: 225 mg - Objective Vital Signs: Vital Signs Temperature 98 F 03/15/18 10:00 Pulse Rate 89 03/15/18 10:00 Respiratory Rate 18 03/15/18 10:00 Blood Pressure 146/96 03/15/18 10:00 O2 Sat by Pulse Oximetry (%) 100 03/11/18 09:00 Constitutional: Yes: No Distress, Calm Cardiovascular: Yes: Regular Rate and Rhythm Respiratory: Yes: Regular, CTA Bilaterally Gastrointestinal: Yes: Normal Bowel Sounds, Soft Musculoskeletal: Yes: WNL Extremities: Yes: Other Neurological: Yes: Other (wound vac in place) Labs: CBC, BMP 03/12/18 06:00 03/12/18 06:00 Assessment/Plan sepsis abscess of the foot swelling of the foot plan continue abx ceftriaxone complete the course wound care
--- NOTE | 2018-03-15 15:24 | PN ---
Progress Note, Physician - Current Medication List Current Medications: Active Medications Acetaminophen (Tylenol -) 650 mg PO Q6H PRN PRN Reason: PAIN LEVEL 6-10 Last Admin: 03/14/18 20:44 Dose: 650 mg Heparin Sodium (Porcine) (Heparin -) 5,000 unit SQ BID [facility] Last Admin: 03/15/18 10:13 Dose: 5,000 unit Vancomycin HCl (Vancomycin (Pre-Docked)) 1,000 mg in 250 mls @ 200 mls/hr IVPB Q24H [facility]; Protocol Last Admin: 03/14/18 15:45 Dose: 200 mls/hr Ceftriaxone Sodium 2 gm/ (Dextrose) 100 mls @ 200 mls/hr IVPB DAILY [facility]; Protocol Last Admin: 03/15/18 10:12 Dose: 200 mls/hr Ketorolac Tromethamine (Toradol Injection -) 15 mg IVPUSH Q6H PRN PRN Reason: breakthrough pain Stop: 03/15/18 23:58 Last Admin: 03/15/18 03:13 Dose: 15 mg Metoprolol Tartrate (Lopressor -) 25 mg PO BID [facility] Last Admin: 03/15/18 10:13 Dose: 25 mg Ondansetron HCl (Zofran Injection) 4 mg IVPUSH Q6H PRN PRN Reason: NAUSEA AND/OR VOMITING Oxcarbazepine (Trileptal -) 300 mg PO BID [facility] Last Admin: 03/15/18 10:15 Dose: 300 mg Oxycodone HCl (Roxicodone -) 10 mg PO Q6H PRN PRN Reason: PAIN LEVEL 6-10 Last Admin: 03/14/18 20:44 Dose: 10 mg Ranitidine HCl (Zantac -) 150 mg PO BID [facility] Last Admin: 03/15/18 10:13 Dose: 150 mg Venlafaxine HCl (Effexor Xr -) 225 mg PO DAILY [facility] Last Admin: 03/15/18 10:14 Dose: 225 mg - Objective Vital Signs: Vital Signs Temperature 98.2 F 03/15/18 14:24 Pulse Rate 70 03/15/18 14:24 Respiratory Rate 20 03/15/18 14:24 Blood Pressure 152/89 03/15/18 14:24 O2 Sat by Pulse Oximetry (%) 100 03/11/18 09:00 Labs: CBC, BMP 03/12/18 06:00 03/12/18 06:00 Problem List - Problems (1) Cellulitis Code(s): L03.90 - CELLULITIS, UNSPECIFIED Qualifiers: Site of cellulitis: extremity Site of cellulitis of extremity: lower extremity Laterality: right Qualified Code(s): L03.115 - Cellulitis of right lower limb (2) GERD (gastroesophageal reflux disease) Code(s): K21.9 - GASTRO-ESOPHAGEAL REFLUX DISEASE WITHOUT ESOPHAGITIS (3) High blood pressure Code(s): I10 - ESSENTIAL (PRIMARY) HYPERTENSION Qualifiers: Hypertension type: essential hypertension Qualified Code(s): I10 - Essential (primary) hypertension (4) Bipolar 1 disorder Code(s): F31.9 - BIPOLAR DISORDER, UNSPECIFIED
[2018-03-15] MEDS: oxyCODONE HCL 5 MG TABLET PO PRN (15:31)
[2018-03-15] MEDS: ACETAMINOPHEN 325 MG TABLET (FP) PO PRN (15:31)
[2018-03-16] MEDS: ACETAMINOPHEN 325 MG TABLET (FP) PO PRN ×4 (01:45→22:32)
[2018-03-16] MEDS: oxyCODONE HCL 5 MG TABLET PO PRN ×4 (01:45→22:32)
[2018-03-16] MEDS ORDERED: PT OWN MED DRAWER 7, Y5N ONE ×2 (09:38→20:56)
[2018-03-16] MEDS ORDERED: DEXTROSE 5%-WATER 100 ML IVPB ONE (09:38)
[2018-03-16] MEDS: RANITIDINE HCL 150 MG TABLET (FP) PO SCH ×2 (09:42→21:31)
[2018-03-16] MEDS: METOPROLOL TARTRATE 25 MG TABLET (FP) PO SCH ×2 (09:43→21:31)
[2018-03-16] MEDS: CEFTRIAXONE 2 GM in DEXTROSE 5%-WATER 100 ML IVPB SCH (09:43)
[2018-03-16] MEDS: VENLAFAXINE HCL 75 MG E.R. CAPSULES (FP) PO SCH (09:44)
[2018-03-16] MEDS: HEPARIN NA (PORCINE) 5,000 UNITS/ML 1ML VIAL SQ SCH ×3 (09:45→21:31)
[2018-03-16] MEDS: OXcarbazepine 300 MG TABLET (UD) PO SCH ×2 (09:45→22:32)
--- NOTE | 2018-03-16 12:28 | PN ---
Progress Note (short form) - Note Progress Note: POD#9 days. Patient is feeling better. vss, Tmax 98.[address] minimal drainage, greatly improved edema and cellulitis, normal post op foreign body Vac in place. Discussed with ID. Needs IVABX. Follow in wound care. Will follow till dc. Awaiting PICC line.
--- NOTE | 2018-03-16 12:56 | PN ---
Progress Note, Physician History of Present Illness: stable no new issues - Current Medication List Current Medications: Active Medications Acetaminophen (Tylenol -) 650 mg PO Q6H PRN PRN Reason: PAIN LEVEL 6-10 Last Admin: 03/16/18 09:42 Dose: 650 mg Heparin Sodium (Porcine) (Heparin -) 5,000 unit SQ BID [facility] Last Admin: 03/16/18 09:45 Dose: 5,000 unit Ceftriaxone Sodium 2 gm/ (Dextrose) 100 mls @ 200 mls/hr IVPB DAILY [facility]; Protocol Last Admin: 03/16/18 09:43 Dose: 200 mls/hr Metoprolol Tartrate (Lopressor -) 25 mg PO BID [facility] Last Admin: 03/16/18 09:43 Dose: 25 mg Ondansetron HCl (Zofran Injection) 4 mg IVPUSH Q6H PRN PRN Reason: NAUSEA AND/OR VOMITING Oxcarbazepine (Trileptal -) 300 mg PO BID [facility] Last Admin: 03/16/18 09:45 Dose: 300 mg Oxycodone HCl (Roxicodone -) 10 mg PO Q6H PRN PRN Reason: PAIN LEVEL 6-10 Last Admin: 03/16/18 09:43 Dose: 10 mg Ranitidine HCl (Zantac -) 150 mg PO BID [facility] Last Admin: 03/16/18 09:42 Dose: 150 mg Venlafaxine HCl (Effexor Xr -) 225 mg PO DAILY [facility] Last Admin: 03/16/18 09:44 Dose: 225 mg - Objective Vital Signs: Vital Signs Temperature 98.4 F 03/16/18 09:56 Pulse Rate 63 03/16/18 09:56 Respiratory Rate 18 03/16/18 09:56 Blood Pressure 141/82 03/16/18 09:56 O2 Sat by Pulse Oximetry (%) 98 03/15/18 21:00 Constitutional: Yes: No Distress, Calm HENT: Yes: Atraumatic Neck: Yes: Supple, Trachea Midline Cardiovascular: Yes: Regular Rate and Rhythm Respiratory: Yes: Regular, CTA Bilaterally Gastrointestinal: Yes: Normal Bowel Sounds, Soft Musculoskeletal: Yes: WNL Extremities: Yes: Other Wound/Incision: Yes: Other (wound vac in place) Neurological: Yes: Alert, Oriented Psychiatric: Yes: Alert, Oriented Labs: CBC, BMP 03/12/18 06:00 03/12/18 06:00 Assessment/Plan sepsis abscess of the foot swelling of the foot plan continue abx ceftriaxone complete the course wound care
--- NOTE | 2018-03-16 23:36 | PN ---
Progress Note, Physician History of Present Illness: No new complaints - Current Medication List Current Medications: Active Medications Acetaminophen (Tylenol -) 650 mg PO Q6H PRN PRN Reason: PAIN LEVEL 6-10 Last Admin: 03/16/18 22:32 Dose: 650 mg Heparin Sodium (Porcine) (Heparin -) 5,000 unit SQ BID [facility] Last Admin: 03/16/18 21:31 Dose: 5,000 unit Ceftriaxone Sodium 2 gm/ (Dextrose) 100 mls @ 200 mls/hr IVPB DAILY [facility]; Protocol Last Admin: 03/16/18 09:43 Dose: 200 mls/hr Metoprolol Tartrate (Lopressor -) 25 mg PO BID [facility] Last Admin: 03/16/18 21:31 Dose: 25 mg Ondansetron HCl (Zofran Injection) 4 mg IVPUSH Q6H PRN PRN Reason: NAUSEA AND/OR VOMITING Oxcarbazepine (Trileptal -) 300 mg PO BID [facility] Last Admin: 03/16/18 22:32 Dose: 300 mg Oxycodone HCl (Roxicodone -) 10 mg PO Q6H PRN PRN Reason: PAIN LEVEL 6-10 Last Admin: 03/16/18 22:32 Dose: 10 mg Ranitidine HCl (Zantac -) 150 mg PO BID [facility] Last Admin: 03/16/18 21:31 Dose: 150 mg Venlafaxine HCl (Effexor Xr -) 225 mg PO DAILY [facility] Last Admin: 03/16/18 09:44 Dose: 225 mg - Objective Vital Signs: Vital Signs Temperature 97.9 F 03/16/18 16:54 Pulse Rate 67 03/16/18 13:14 Respiratory Rate 20 03/16/18 13:14 Blood Pressure 132/67 03/16/18 13:14 O2 Sat by Pulse Oximetry (%) 98 03/15/18 21:00 Neck: Yes: WNL, Supple Cardiovascular: Yes: WNL, Regular Rate and Rhythm Respiratory: Yes: WNL, Regular, CTA Bilaterally Gastrointestinal: Yes: WNL, Normal Bowel Sounds, Soft Extremities: Yes: Other (RT foot w/ wound vac wc is draining) Labs: CBC, BMP 03/12/18 06:00 03/12/18 06:00 Problem List - Problems (1) Cellulitis Assessment/Plan: Abscess rt foot S/P I&D Rt foot Cont IV antibxs Cont wound vac DC planning for am Will need PAKO gracia for IV antibxs Code(s): L03.90 - CELLULITIS, UNSPECIFIED Qualifiers: Site of cellulitis: extremity Site of cellulitis of extremity: lower extremity Laterality: right Qualified Code(s): L03.115 - Cellulitis of right lower limb (2) GERD (gastroesophageal reflux disease) Assessment/Plan: Cont pepcid Code(s): K21.9 - GASTRO-ESOPHAGEAL REFLUX DISEASE WITHOUT ESOPHAGITIS (3) High blood pressure Assessment/Plan: BP stable Cont antihypertensives Code(s): I10 - ESSENTIAL (PRIMARY) HYPERTENSION Qualifiers: Hypertension type: essential hypertension Qualified Code(s): I10 - Essential (primary) hypertension (4) Bipolar 1 disorder Code(s): F31.9 - BIPOLAR DISORDER, UNSPECIFIED
[2018-03-17] MEDS: ACETAMINOPHEN 325 MG TABLET (FP) PO PRN ×2 (06:29→16:42)
[2018-03-17] MEDS: oxyCODONE HCL 5 MG TABLET PO PRN (06:29)
[2018-03-17 07:38] LABS: BASO % 1.2 % (0-2.0); EOS % 1.1 % (0-4.5); HEMATOCRIT 39.2 % (35.4-49); HEMOGLOBIN 12.5 GM/dL (11.7-16.9); LYMPH % 23.1 % (8-40); MCH 29.9 pg (25.7-33.7); MCHC 31.9 g/dl (32.0-35.9); MEAN CELL VOLUME 93.7 fl (80-96); MEAN PLT VOLUME 8.2 fl (7.5-11.1); MONO % 6.8 % (3.8-10.2); NEUT % 67.8 % (42.8-82.8); PLATELET COUNT 545 K/MM3 (134-434); RBC 4.19 M/mm3 (4.00-5.60); RDW 15.2 % (11.9-15.9); WHITE BLOOD COUNT 9.6 K/mm3 (4.0-10.0)
[2018-03-17 08:51] LABS: ALBUMIN 3.6 g/dl (3.4-5.0); ALK PHOS 92 U/L (45-117); ANION GAP 8 MMOL/L (8-16); BILIRUBIN,TOTAL 0.3 mg/dL (0.2-1); BLOOD UREA NITROGEN 19 mg/dL (7-18); CALCIUM 9.6 mg/dL (8.5-10.1); CHLORIDE 101 mmol/L (98-107); CO2 28 mmol/L (21-32); GLUCOSE,RANDOM 95 mg/dL (74-106); POTASSIUM 4.5 mmol/L (3.5-5.1); SGOT/AST 23 U/L (15-37); SGPT/ALT 41 U/L (13-61); SODIUM 136 mmol/L (136-145); TOT PROT 8.2 g/dl (6.4-8.2)
[2018-03-17] MEDS ORDERED: PT OWN MED DRAWER 7, Y5N ONE (08:52)
[2018-03-17] MEDS ORDERED: DEXTROSE 5%-WATER 100 ML IVPB ONE (08:52)
--- NOTE | 2018-03-17 10:24 | PN ---
Progress Note, Physician History of Present Illness: stable no new issues - Current Medication List Current Medications: Active Medications Acetaminophen (Tylenol -) 650 mg PO Q6H PRN PRN Reason: PAIN LEVEL 6-10 Last Admin: 03/17/18 06:29 Dose: 650 mg Heparin Sodium (Porcine) (Heparin -) 5,000 unit SQ BID [facility] Last Admin: 03/16/18 21:31 Dose: 5,000 unit Ceftriaxone Sodium 2 gm/ (Dextrose) 100 mls @ 200 mls/hr IVPB DAILY [facility]; Protocol Last Admin: 03/16/18 09:43 Dose: 200 mls/hr Metoprolol Tartrate (Lopressor -) 25 mg PO BID [facility] Last Admin: 03/16/18 21:31 Dose: 25 mg Ondansetron HCl (Zofran Injection) 4 mg IVPUSH Q6H PRN PRN Reason: NAUSEA AND/OR VOMITING Oxcarbazepine (Trileptal -) 300 mg PO BID [facility] Last Admin: 03/16/18 22:32 Dose: 300 mg Oxycodone HCl (Roxicodone -) 10 mg PO Q6H PRN PRN Reason: PAIN LEVEL 6-10 Last Admin: 03/17/18 06:29 Dose: 10 mg Ranitidine HCl (Zantac -) 150 mg PO BID [facility] Last Admin: 03/16/18 21:31 Dose: 150 mg Venlafaxine HCl (Effexor Xr -) 225 mg PO DAILY [facility] Last Admin: 03/16/18 09:44 Dose: 225 mg - Objective Vital Signs: Vital Signs Temperature 9.0 F L 03/17/18 06:41 Pulse Rate 75 03/17/18 06:41 Respiratory Rate 18 03/17/18 06:41 Blood Pressure 139/85 03/17/18 06:41 O2 Sat by Pulse Oximetry (%) 99 03/16/18 21:00 Constitutional: Yes: No Distress, Calm Cardiovascular: Yes: Regular Rate and Rhythm Respiratory: Yes: Regular, CTA Bilaterally Gastrointestinal: Yes: Normal Bowel Sounds, Soft Musculoskeletal: Yes: WNL Extremities: Yes: Other Wound/Incision: Yes: Other (wound vac in place) Neurological: Yes: Alert, Oriented Psychiatric: Yes: Alert, Oriented Labs: CBC, BMP 03/17/18 07:00 03/17/18 06:45 Assessment/Plan sepsis abscess of the foot swelling of the foot plan continue abx ceftriaxone complete the course wound care
[2018-03-17] MEDS: RANITIDINE HCL 150 MG TABLET (FP) PO SCH (10:34)
[2018-03-17] MEDS: HEPARIN NA (PORCINE) 5,000 UNITS/ML 1ML VIAL SQ SCH (10:34)
[2018-03-17] MEDS: METOPROLOL TARTRATE 25 MG TABLET (FP) PO SCH (10:34)
[2018-03-17] MEDS: VENLAFAXINE HCL 75 MG E.R. CAPSULES (FP) PO SCH (10:34)
[2018-03-17] MEDS: CEFTRIAXONE 2 GM in DEXTROSE 5%-WATER 100 ML IVPB SCH (10:34)
[2018-03-17] MEDS: OXcarbazepine 300 MG TABLET (UD) PO SCH (10:35)
[2018-03-17 14:25] VITALS: BP 106/62; PULSE 67; TEMP 98.5
--- NOTE | 2018-03-18 18:24 | PN ---
Progress Note (short form) - Note Progress Note: POD#11 days. Patient is feeling better. Going home. vss, Tmax 98.2 +greatly improved wound, +macerated from vac, normal post op foreign body IVABX at home. Follow in wound care. Vac to right foot tomorrow.
[2018-03-24 11:46] LABS: HEMATOCRIT 39.8 % (35.4-49); HEMOGLOBIN 13.1 GM/dL (11.7-16.9); MCH 30.6 pg (25.7-33.7); MCHC 32.9 g/dl (32.0-35.9); MEAN PLT VOLUME 8.5 fl (7.5-11.1); PLATELET COUNT 386 K/MM3 (134-434); RBC 4.28 M/mm3 (4.00-5.60); RDW 15.2 % (11.9-15.9); WHITE BLOOD COUNT 5.7 K/mm3 (4.0-10.0)
[2018-03-24 12:03] LABS: ANION GAP 9 MMOL/L (8-16); BLOOD UREA NITROGEN 14 mg/dL (7-18); CHLORIDE 106 mmol/L (98-107); CO2 25 mmol/L (21-32); GLUCOSE,RANDOM 79 mg/dL (74-106); POTASSIUM 3.7 mmol/L (3.5-5.1); SODIUM 141 mmol/L (136-145)
--- NOTE | 2018-03-24 17:35 | DS ---
Physical Examination Vital Signs: Vital Signs Temperature 98.5 F 03/17/18 14:24 Pulse Rate 67 03/17/18 14:24 Respiratory Rate 20 03/17/18 14:24 Blood Pressure 106/62 03/17/18 14:24 O2 Sat by Pulse Oximetry (%) 99 03/17/18 09:00 Labs: CBC, BMP 03/24/18 11:30 03/24/18 11:30 Discharge Summary Reason For Visit: CELLULITIS; RIGHT FOOT PAIN Condition: Good - Instructions Diet, Activity, Other Instructions: 2 gram sodium diet Pt to go home with vac container Pt to get daily IV ceftriaxone daily x 2 more weeks in [facility]pt infusion suite starting 03/18/[address] Daniel Goncalves/Dr Herrmann in 1 week [phone] Referrals: Daniel Goncalves MD [Primary Care Provider] - Disposition: [facility]/HOME HEALTH CARE - Home Medications Comprehensive Discharge Medication List: Ambulatory Orders Metoprolol Tartrate 25 mg PO BID 03/26/15 Famotidine [Pepcid] 20 mg PO BID #60 tablet 03/26/17 Oxcarbazepine [Trileptal -] 300 mg PO BID 05/15/17 Venlafaxine HCl ER [Effexor Xr -] 225 mg PO DAILY 05/15/17 Famotidine [Pepcid] 20 mg PO BID #60 tablet 05/16/17 Ceftriaxone [Rocephin -] 2 gm IVPB DAILY vial 03/17/18 Becaplermin [Regranex] 15 gm TP DAILY #1 gel..gram. MDD 1 03/18/18
== END 2018-03-17 17:30 | disposition home health service (06) | DRG 720 ==
LOC: JER 09:37 → JERFT 09:37 → JERBED 14:12 → J7W 16:34
PROVIDERS: ADMIT Internal Medicine; ATTEND Internal Medicine
PROC: 0Y9M0ZX Drainage of Right Foot, Open Approach, Diagnostic (ICD-10-PCS; principal; 2018-03-07 18:00)
DX: A41.9 Sepsis, unspecified organism (principal); L03.115 Cellulitis of right lower limb; F31.9 Bipolar disorder, unspecified; K21.9 Gastro-esophageal reflux disease without esophagitis; I10 Essential (primary) hypertension; E66.9 Obesity, unspecified; Z68.32 Body mass index [BMI] 32.0-32.9, adult; M79.5 Residual foreign body in soft tissue
CPT/HCPCS: 36415; 73630-TC-RT-FY; 73700-TC-RT; 80048; 80053; 83036; 83605; 84550; 85025; 85027; 85651; 86140; 87040; 87070; 87186; 87205; 90670; 90688; 93971; 94760; 99282-25; G0008; G0009; J0131; J1644; J7030

== ENCOUNTER 2018-03-18 12:07 | Day surgery (SDC) | payer OTHER ==
[2018-03-18] MEDS ORDERED: CEFTRIAXONE 2 GM in DEXTROSE 5%-WATER 100 ML IVPB ONE (12:30)
[2018-03-18] MEDS ORDERED: SODIUM CHLORIDE 100 ML IVPB ONE ×2 (12:51→12:54)
[2018-03-18 14:51] VITALS: BP 124/80; PULSE 88; TEMP 97.2
== END 2018-03-18 14:27 | disposition home or self-care (01) ==
LOC: JINFUSION 12:07
PROVIDERS: ATTEND Internal Medicine Infectious Disease
DX: L03.115 Cellulitis of right lower limb (principal); F31.9 Bipolar disorder, unspecified; I10 Essential (primary) hypertension; F19.11 Other psychoactive substance abuse, in remission
CPT/HCPCS: 96365; G0463-25

== ENCOUNTER 2018-03-19 10:46 | Day surgery (SDC) | payer OTHER ==
[~2018-03-19 10:46] MED LIST changes: -BUPIVACAINE HCL/PF 0.5% (5MG/ML) 10 ML VIAL IJ ONE; +CEFTRIAXONE 2 GM in DEXTROSE 5%-WATER 100 ML IVPB ONE
[2018-03-19 11:30] VITALS: TEMP 98.1
[2018-03-19 12:34] VITALS: BP 121/84; PULSE 69
== END 2018-03-19 12:35 | disposition home or self-care (01) ==
LOC: JINFUSION 10:46
PROVIDERS: ATTEND Internal Medicine Infectious Disease
DX: L03.115 Cellulitis of right lower limb (principal); I10 Essential (primary) hypertension; F31.9 Bipolar disorder, unspecified; F19.11 Other psychoactive substance abuse, in remission
CPT/HCPCS: 96365

== ENCOUNTER 2018-03-20 07:31 | Day surgery (SDC) | payer OTHER ==
[2018-03-20] MEDS ORDERED: CEFTRIAXONE 2 GM in DEXTROSE 5%-WATER 100 ML IVPB ONE (08:15)
[2018-03-20] MEDS ORDERED: DEXTROSE 5%-WATER 100 ML IVPB ONE (08:21)
[2018-03-20 08:36] VITALS: BP 142/85; PULSE 86; TEMP 98.2
== END 2018-03-20 09:45 | disposition home or self-care (01) ==
LOC: JINFUSION 07:31 → J7W 07:42 → JINFUSION 09:45
PROVIDERS: ATTEND Internal Medicine Infectious Disease
DX: L03.115 Cellulitis of right lower limb (principal); I10 Essential (primary) hypertension; F19.11 Other psychoactive substance abuse, in remission; F31.9 Bipolar disorder, unspecified
CPT/HCPCS: 96365

== ENCOUNTER 2018-03-21 09:53 | Day surgery (SDC) | payer OTHER ==
[2018-03-21] MEDS ORDERED: DEXTROSE 5%-WATER 100 ML IVPB ONE (10:29)
[2018-03-21] MEDS ORDERED: CEFTRIAXONE 2 GM in DEXTROSE 5%-WATER 100 ML IVPB ONE (10:30)
[2018-03-21 12:17] VITALS: TEMP 98
[2018-03-21 12:20] VITALS: BP 150/90; PULSE 82
== END 2018-03-21 11:22 | disposition home or self-care (01) ==
LOC: J7W 09:53 → JINFUSION 09:53
PROVIDERS: ATTEND Internal Medicine Infectious Disease
DX: L03.115 Cellulitis of right lower limb (principal); I10 Essential (primary) hypertension; F19.11 Other psychoactive substance abuse, in remission; F31.9 Bipolar disorder, unspecified
CPT/HCPCS: 96365; 96366

== ENCOUNTER 2018-03-22 09:32 | Day surgery (SDC) | payer OTHER ==
[2018-03-22] MEDS ORDERED: DEXTROSE 5%-WATER 100 ML IVPB ONE (10:37)
[2018-03-22] MEDS ORDERED: CEFTRIAXONE 2 GM in DEXTROSE 5%-WATER 100 ML IVPB ONE (10:45)
[2018-03-22 17:08] VITALS: BP 142/80; PULSE 85; TEMP 97.8
[2018-03-23] MEDS ORDERED: CEFTRIAXONE 2 GM in DEXTROSE 5%-WATER 100 ML IVPB SCH (10:00)
== END 2018-03-22 11:30 | disposition home or self-care (01) ==
LOC: JINFUSION 09:32 → J7W 09:33 → JINFUSION 11:30
PROVIDERS: ATTEND Internal Medicine Infectious Disease
PROC: 3E033GC Introduction of Other Therapeutic Substance into Peripheral Vein, Percutaneous Approach (ICD-10-PCS; principal; 2018-03-22)
DX: L03.115 Cellulitis of right lower limb (principal); I10 Essential (primary) hypertension; F19.11 Other psychoactive substance abuse, in remission; F31.9 Bipolar disorder, unspecified
CPT/HCPCS: 96365

== ENCOUNTER 2018-03-23 08:54 | Day surgery (SDC) | payer OTHER ==
[2018-03-23] MEDS ORDERED: CEFTRIAXONE 2 GM in DEXTROSE 5%-WATER 100 ML IVPB ONE (10:00)
[2018-03-23] MEDS ORDERED: DEXTROSE 5%-WATER 100 ML IVPB ONE (10:05)
[2018-03-23 10:22] VITALS: BP 143/94; PULSE 99; TEMP 98.1
== END 2018-03-23 10:50 | disposition home or self-care (01) ==
LOC: JINFUSION 08:54 → J7W 08:54 → JINFUSION 10:50
PROVIDERS: ATTEND Internal Medicine Infectious Disease
PROC: 3E033GC Introduction of Other Therapeutic Substance into Peripheral Vein, Percutaneous Approach (ICD-10-PCS; principal; 2018-03-23)
DX: L03.115 Cellulitis of right lower limb (principal); I10 Essential (primary) hypertension; F19.11 Other psychoactive substance abuse, in remission; F31.9 Bipolar disorder, unspecified
CPT/HCPCS: 96365

== ENCOUNTER 2018-03-24 11:19 | Day surgery (SDC) | payer OTHER ==
[2018-03-24 12:04] VITALS: PULSE 78; TEMP 98.7
[2018-03-24 12:07] VITALS: BP 124/94
[2018-03-24] MEDS ORDERED: CEFTRIAXONE 2 GM in DEXTROSE 5%-WATER 100 ML IVPB ONE (12:30)
== END 2018-03-24 13:23 | disposition home or self-care (01) ==
LOC: JINFUSION 11:19
PROVIDERS: ATTEND Internal Medicine Infectious Disease
PROC: 3E033GC Introduction of Other Therapeutic Substance into Peripheral Vein, Percutaneous Approach (ICD-10-PCS; principal; 2018-03-24)
DX: L03.115 Cellulitis of right lower limb (principal); I10 Essential (primary) hypertension; F19.11 Other psychoactive substance abuse, in remission; F31.9 Bipolar disorder, unspecified
CPT/HCPCS: 96365

== ENCOUNTER 2018-03-25 09:28 | Day surgery (SDC) | payer OTHER ==
[2018-03-25] MEDS ORDERED: CEFTRIAXONE 2 GM in SODIUM CHLORIDE 100 ML IVPB ONE (11:00)
[2018-03-25] MEDS ORDERED: SODIUM CHLORIDE 100 ML IVPB ONE (11:13)
[2018-03-25 11:38] VITALS: TEMP 98.7
[2018-03-25 12:46] VITALS: BP 152/96; PULSE 102
== END 2018-03-25 12:47 | disposition home or self-care (01) ==
LOC: JINFUSION 09:28
PROVIDERS: ATTEND Internal Medicine Infectious Disease
PROC: 3E033GC Introduction of Other Therapeutic Substance into Peripheral Vein, Percutaneous Approach (ICD-10-PCS; principal; 2018-03-25)
DX: L03.115 Cellulitis of right lower limb (principal); I10 Essential (primary) hypertension; F19.11 Other psychoactive substance abuse, in remission; F31.9 Bipolar disorder, unspecified
CPT/HCPCS: 96365

== ENCOUNTER 2018-03-27 12:48 | Day surgery (SDC) | payer OTHER ==
[2018-03-27 15:11] VITALS: TEMP 99.1
[2018-03-27 16:29] VITALS: BP 119/78; PULSE 101
== END 2018-03-27 14:30 | disposition home or self-care (01) ==
LOC: JINFUSION 12:48
PROVIDERS: ATTEND Internal Medicine Infectious Disease
PROC: 3E033GC Introduction of Other Therapeutic Substance into Peripheral Vein, Percutaneous Approach (ICD-10-PCS; principal; 2018-03-27)
DX: L03.115 Cellulitis of right lower limb (principal); I10 Essential (primary) hypertension; F19.11 Other psychoactive substance abuse, in remission; F31.9 Bipolar disorder, unspecified
CPT/HCPCS: 96365

== ENCOUNTER 2018-03-28 09:57 | Day surgery (SDC) | payer OTHER ==
[2018-03-28 13:00] VITALS: BP 98/58; TEMP 98.1
[2018-03-28] MEDS ORDERED: CEFTRIAXONE 2 GM in DEXTROSE 5%-WATER 100 ML IVPB ONE (16:00)
== END 2018-03-28 12:50 | disposition home or self-care (01) ==
LOC: JASU-ENDO 09:57
PROVIDERS: ATTEND Internal Medicine Infectious Disease
PROC: 3E033GC Introduction of Other Therapeutic Substance into Peripheral Vein, Percutaneous Approach (ICD-10-PCS; principal; 2018-03-28)
DX: L03.115 Cellulitis of right lower limb (principal); I10 Essential (primary) hypertension; F19.11 Other psychoactive substance abuse, in remission; F31.9 Bipolar disorder, unspecified
CPT/HCPCS: 96365

== ENCOUNTER 2018-03-30 15:52 | Day surgery (SDC) | payer OTHER ==
[2018-03-30] MEDS ORDERED: CEFTRIAXONE 2 GM in DEXTROSE 5%-WATER 100 ML IVPB ONE (16:30)
[2018-03-30] MEDS ORDERED: DEXTROSE 5%-WATER 200 ML IVPB ONE (16:33)
[2018-03-30 18:14] VITALS: TEMP 98.8
[2018-03-30 18:16] VITALS: BP 114/81; PULSE 85
== END 2018-03-30 17:20 | disposition home or self-care (01) ==
LOC: JINFUSION 15:52 → J7W 15:53 → JINFUSION 17:20
PROVIDERS: ATTEND Internal Medicine Infectious Disease
PROC: 3E033GC Introduction of Other Therapeutic Substance into Peripheral Vein, Percutaneous Approach (ICD-10-PCS; principal; 2018-03-30)
DX: L03.115 Cellulitis of right lower limb (principal); I10 Essential (primary) hypertension; F19.11 Other psychoactive substance abuse, in remission; F31.9 Bipolar disorder, unspecified
CPT/HCPCS: 96365

== ENCOUNTER 2018-03-31 11:54 | Day surgery (SDC) | payer OTHER ==
[2018-03-31 12:08] LABS: HEMATOCRIT 39.5 % (35.4-49); HEMOGLOBIN 13.6 GM/dL (11.7-16.9); MCHC 34.5 g/dl (32.0-35.9); MEAN CELL VOLUME 92.7 fl (80-96); MEAN PLT VOLUME 8.1 fl (7.5-11.1); PLATELET COUNT 333 K/MM3 (134-434); RBC 4.26 M/mm3 (4.00-5.60); WHITE BLOOD COUNT 5.5 K/mm3 (4.0-10.0)
[2018-03-31 12:26] VITALS: BP 98/60; PULSE 82; TEMP 98.2
[2018-03-31 12:37] LABS: ANION GAP 6 MMOL/L (8-16); BLOOD UREA NITROGEN 13 mg/dL (7-18); CALCIUM 9.4 mg/dL (8.5-10.1); CHLORIDE 100 mmol/L (98-107); CO2 31 mmol/L (21-32); GLUCOSE,RANDOM 85 mg/dL (74-106); POTASSIUM 4.6 mmol/L (3.5-5.1); SODIUM 136 mmol/L (136-145)
[2018-03-31] MEDS ORDERED: CEFTRIAXONE 2 GM in DEXTROSE 5%-WATER 100 ML IVPB ONE (12:45)
== END 2018-03-31 13:25 | disposition home or self-care (01) ==
LOC: JINFUSION 11:54
PROVIDERS: ATTEND Internal Medicine Infectious Disease
PROC: 3E033GC Introduction of Other Therapeutic Substance into Peripheral Vein, Percutaneous Approach (ICD-10-PCS; principal; 2018-03-31)
DX: L03.115 Cellulitis of right lower limb (principal); I10 Essential (primary) hypertension; F19.11 Other psychoactive substance abuse, in remission; F31.9 Bipolar disorder, unspecified
CPT/HCPCS: 36415; 80048; 85027; 96365

== ENCOUNTER 2018-04-01 14:09 | Day surgery (SDC) | payer OTHER ==
[2018-04-01] MEDS ORDERED: SODIUM CHLORIDE 100 ML IVPB ONE (14:22)
[2018-04-01] MEDS ORDERED: CEFTRIAXONE 2 GM in DEXTROSE 5%-WATER - 100 ML IVPB ONE (14:30)
[2018-04-01 14:44] VITALS: BP 116/88; PULSE 90; TEMP 98.9
== END 2018-04-01 15:20 | disposition home or self-care (01) ==
LOC: JASU-ENDO 14:09
PROVIDERS: ATTEND Internal Medicine Infectious Disease
PROC: 3E033GC Introduction of Other Therapeutic Substance into Peripheral Vein, Percutaneous Approach (ICD-10-PCS; principal; 2018-04-01)
DX: L03.115 Cellulitis of right lower limb (principal); I10 Essential (primary) hypertension; F19.11 Other psychoactive substance abuse, in remission; F31.9 Bipolar disorder, unspecified
CPT/HCPCS: 96365